=== PATIENT | male | born 1940 | race Caucasian/White ===

== ENCOUNTER 2019-11-03 09:03 | Emergency (ER) | payer MEDICARE, BC ==
[2019-11-03] MEDS ORDERED: Aspirin 81 MG Tab.Chew PO ONE (09:26)
[2019-11-03] MEDS ORDERED: Sodium Chloride 0.9% 10 ML Syringe FLUSH PRN ×2 (09:28→10:18)
--- NOTE | 2019-11-03 09:37 | EDM.PDOC ---
ED HPI GENERAL MEDICAL PROBLEM - General Chief Complaint: Chest Pain Stated Complaint: CHEST PAIN/SOB Time Seen by Provider: 11/03/19 09:27 - History of Present Illness INITIAL COMMENTS - FREE TEXT/NARRATIVE: 79-year-old male presents the emergency room with shortness of breath. Patient awoke around 2 AM with sharp bilateral lower chest pain. It hurts for him to take a deep breath but generally breathing in general is uncomfortable.. The patient is currently treated for myeloma. He cannot give any more history on this. He sees Dr. Gutierrez. Patient denies any fevers or chills he has not had any achiness no loss of taste or smell. Patient denies any leg pain however he has had lower leg swelling over the last month he attributes this to change in therapy for his myeloma. He denies chest pressure but has significant d iscomfort especially with breathing the harder he breathes the worst the pain is and seems to be both on the right and left side. Chest Pain Score (Numeric/FACES): 7 - Related Data Allergies Allergy/AdvReac Type Severity Reaction Status Date / Time ciprofloxacin [From Cipro] Allergy Severe Other Verified 11/03/19 09:16 Sulfa (Sulfonamide Allergy Severe Other Verified 11/03/19 09:16 Antibiotics) Home Meds: Home Meds Acyclovir 400 mg PO BID 11/03/19 [History] Aspirin 81 mg PO DAILY 11/03/19 [History] Bortezomib [Velcade] 1 dose IM ASDIRECTED 11/03/19 [History] Cholecalciferol (Vitamin D3) [Vitamin D3] 2,000 mg PO DAILY 11/03/19 [History] Enalapril [Vasotec] 5 mg PO DAILY 11/03/19 [History] Famotidine 20 mg PO BID 11/03/19 [History] Fluconazole [Diflucan] 400 mg PO DAILY 11/03/19 [History] Hydrocortisone [Hydrocortisone 2.5% Crm] 1 dose TOP BID 11/03/19 [History] Iron Polysaccharide Complex [Myferon 150] 1 cap PO DAILY 11/03/19 [History] Levothyroxine 125 mcg PO DAILY 11/03/19 [History] Loratadine 10 mg PO DAILY 11/03/19 [History] Minocycline [Minocin] 100 mg PO DAILY PRN 11/03/19 [History] Prochlorperazine [Compazine] 10 mg PO QID PRN 11/03/19 [History] Rosuvastatin [Crestor] 5 mg PO ASDIRECTED 11/03/19 [History] Tamsulosin [Flomax] 0.4 mg PO DAILY 11/03/19 [History] dexAMETHasone [Dexamethasone] 40 mg PO ASDIRECTED 11/03/19 [History] diphenhydrAMINE [Benadryl] 25 mg PO QID 11/03/19 [History] metroNIDAZOLE [Noritate] 1 dose TOP BID 11/03/19 [History] Past Medical History HEENT History: Reports: Cataract Cardiovascular History: Reports: High Cholesterol, Hypertension Genitourinary History: Reports: Prostate Disorder Endocrine/Metabolic History: Reports: Hypothyroidism - Past Surgical History HEENT Surgical History: Reports: Cataract Surgery GI Surgical History: Reports: Hernia, Inguinal, Hernia Repair/Other Musculoskeletal Surgical History: Reports: Knee Replacement ED ROS GENERAL - Review of Systems Review Of Systems: See Below Constitutional: Reports: No Symptoms HEENT: Reports: No Symptoms Respiratory: Reports: Shortness of Breath, Pleuritic Chest Pain Cardiovascular: Reports: Chest Pain, Edema Endocrine: Reports: No Symptoms GI/Abdominal: Reports: No Symptoms Musculoskeletal: Reports: No Symptoms Skin: Reports: No Symptoms Neurological: Reports: No Symptoms Psychiatric: Reports: No Symptoms ED EXAM, GENERAL - Physical Exam Exam: See Below Exam Limited By: No Limitations General Appearance: Anxious (He is mildly anxious and has some discomfort with breathing) Eye Exam: Bilateral Eye: Normal Inspection Head: Atraumatic, Normocephalic Neck: Normal Inspection, Supple, Non-Tender. No: Lymphadenopathy (R) Respiratory/Chest: Decreased Breath Sounds, Other (He is anxious in any sort of change of position causes his discomfort to get worse but he has baseline discomfort just with basic breathing). No: Crackles, Rales, Rhonchi, Wheezing Cardiovascular: Regular Rate, Rhythm, No Edema, No Murmur GI/Abdominal: Normal Bowel Sounds, Soft, Non-Tender Back Exam: Normal Inspection, Other (He has some lower rib discomfort). No: CVA Tenderness (L), CVA Tenderness (R) Extremities: Other (Bilateral 2+ pitting edema at this is been going on for about a month) Neurological: Alert, Oriented Psychiatric: Normal Affect, Anxious Skin Exam: Warm, Dry, Intact EKG INTERPRETATION EKG Date: 11/03/19 Rhythm: Other (Sinus tachycardia) Rate (Beats/Min): 114 Gilman: LAD-Left Gilman Deviation P-Wave: Present QRS: Normal ST-T: Other (Nonspecific nondiagnostic changes) QT: Normal Comparison: NA - No Prior EKG EKG Interpretation Comments: Single PVC noted. Abnormal EKG Course - Vital Signs Last Recorded V/S: Last Vital Signs Temp 36.7 C 11/03/19 09:10 Pulse 15 L 11/03/19 09:10 Resp 18 11/03/19 09:10 BP 134/73 11/03/19 09:10 Pulse Ox 94 L 11/03/19 09:10 - Orders/Labs/Meds Orders: Active Orders 24 hr Category Date Time Status EKG 12 Lead [EKG Documentation Completion] [RC] STAT Care 11/03/19 09:17 Active Oxygen Therapy [RC] ASDIRECTED Care 11/03/19 09:39 Active CBC W/O DIFF,HEMOGRAM [HEME] MOTH@0700 Lab 11/04/19 07:00 Ordered CBC W/O DIFF,HEMOGRAM [HEME] MOTH@0700 Lab 11/08/19 07:00 Ordered CBC W/O DIFF,HEMOGRAM [HEME] MOTH@0700 Lab 11/11/19 07:00 Ordered CBC W/O DIFF,HEMOGRAM [HEME] MOTH@0700 Lab 11/15/19 07:00 Ordered CBC W/O DIFF,HEMOGRAM [HEME] MOTH@0700 Lab 11/18/19 07:00 Ordered CBC W/O DIFF,HEMOGRAM [HEME] MOTH@0700 Lab 11/22/19 07:00 Ordered CORONAVIRUS COVID-19 RAPID [MOLEC] Stat Lab 11/03/19 10:38 Ordered PRO B-TYPE NATRIUR PEPT,BNPPRO [CHEM] Stat Lab 11/03/19 11:32 Ordered Heparin Sodium/D5W [Heparin 25,000 Units in D5W 500 ML] Med 11/03/19 11:30 Ordered 25,000 units in 500 ml IV TITRATE Sodium Chloride 0.9% [Normal Saline] 100 ml Med 11/03/19 10:30 Active IV ASDIRECTED Sodium Chloride 0.9% [Saline Flush] Med 11/03/19 09:28 Active 10 ml FLUSH ASDIRECTED PRN Sodium Chloride 0.9% [Saline Flush] Med 11/03/19 10:18 Active 10 ml FLUSH ONETIME PRN Saline Lock Insert [OM.PC] Routine Oth 11/03/19 09:28 Ordered Medication Orders Sodium Chloride (Normal Saline) 100 mls @ 75 mls/hr IV ASDIRECTED SARAH Last Admin: 11/03/19 10:28 Dose: 75 mls/hr Documented by: HOLLI Heparin Sodium/Dextrose (Heparin 25,000 Units In D5w 500 Ml) 25,000 units in 500 mls @ 26.345 mls/hr IV TITRATE SARAH; Protocol Sodium Chloride (Saline Flush) 10 ml FLUSH ASDIRECTED PRN PRN Reason: Keep Vein Open Last Admin: 11/03/19 09:31 Dose: 10 ml Documented by: ALEKSANDR Sodium Chloride (Saline Flush) 10 ml FLUSH ONETIME PRN PRN Reason: IV FLUSH Last Admin: 11/03/19 10:27 Dose: 10 ml Documented by: HOLLI Labs: Laboratory Tests 11/03/19 11/03/19 11/03/19 Range/Units 09:10 09:10 09:10 WBC 5.30 (4.23-9.07) K/mm3 RBC 4.14 L (4.63-6.08) M/mm3 Hgb 13.2 L (13.7-17.5) gm/dl Hct 39.7 L (40.1-51.0) % MCV 95.9 H (79.0-92.2) fl MCH 31.9 (25.7-32.2) pg MCHC 33.2 (32.2-35.5) g/dl RDW Std Deviation 63.6 H (35.1-43.9) fL Plt Count 67 L (163-337) K/mm3 MPV 11.0 (9.4-12.3) fl Neut % (Auto) 70.8 H (34.0-67.9) % Lymph % (Auto) 13.2 L (21.8-53.1) % Victoria % (Auto) 13.0 H (5.3-12.2) % Eos % (Auto) 2.6 (0.8-7.0) Baso % (Auto) 0.0 L (0.1-1.2) % Neut # (Auto) 3.75 (1.78-5.38) K/mm3 Lymph # (Auto) 0.70 L (1.32-3.57) K/mm3 Victoria # (Auto) 0.69 (0.30-0.82) K/mm3 Eos # (Auto) 0.14 (0.04-0.54) K/mm3 Baso # (Auto) 0.00 L (0.01-0.08) K/mm3 Manual Slide Review Abnormal smear PT (9.7-11.7) SECONDS INR APTT (22-31) SECONDS D-Dimer, Quantitative 10.50 H (0.19-0.50) mg/L Sodium 138 (136-145) mEq/L Potassium 3.6 (3.5-5.1) mEq/L Chloride 104 (98-107) mEq/L Carbon Dioxide 24 (21-32) mEq/L Anion Gap 13.6 (5-15) BUN 28 H (7-18) mg/dL Creatinine 1.7 H (0.7-1.3) mg/dL Est Cr Clr Drug Dosing 38.14 mL/min Estimated GFR (MDRD) 39 (>60) mL/min BUN/Creatinine Ratio 16.5 (14-18) Glucose 264 H (83-115) mg/dL Calcium 7.8 L (8.5-10.1) mg/dL Ferritin (26-388) ng/ml Total Bilirubin 1.4 H (0.2-1.0) mg/dL AST 27 (15-37) U/L ALT 45 (16-63) U/L Alkaline Phosphatase 88 (46-116) U/L Troponin I 0.017 (0.00-0.056) ng/mL C-Reactive Protein (<1.0) mg/dL Total Protein 5.2 L (6.4-8.2) g/dl Albumin 2.7 L (3.4-5.0) g/dl Globulin 2.5 gm/dL Albumin/Globulin Ratio 1.1 (1-2) 11/03/19 11/03/19 11/03/19 Range/Units 09:10 09:10 09:10 WBC (4.23-9.07) K/mm3 RBC (4.63-6.08) M/mm3 Hgb (13.7-17.5) gm/dl Hct (40.1-51.0) % MCV (79.0-92.2) fl MCH (25.7-32.2) pg MCHC (32.2-35.5) g/dl RDW Std Deviation (35.1-43.9) fL Plt Count (163-337) K/mm3 MPV (9.4-12.3) fl Neut % (Auto) (34.0-67.9) % Lymph % (Auto) (21.8-53.1) % Victoria % (Auto) (5.3-12.2) % Eos % (Auto) (0.8-7.0) Baso % (Auto) (0.1-1.2) % Neut # (Auto) (1.78-5.38) K/mm3 Lymph # (Auto) (1.32-3.57) K/mm3 Victoria # (Auto) (0.30-0.82) K/mm3 Eos # (Auto) (0.04-0.54) K/mm3 Baso # (Auto) (0.01-0.08) K/mm3 Manual Slide Review PT 11.9 H (9.7-11.7) SECONDS INR 1.11 APTT 25 (22-31) SECONDS D-Dimer, Quantitative (0.19-0.50) mg/L Sodium (136-145) mEq/L Potassium (3.5-5.1) mEq/L Chloride (98-107) mEq/L Carbon Dioxide (21-32) mEq/L Anion Gap (5-15) BUN (7-18) mg/dL Creatinine (0.7-1.3) mg/dL Est Cr Clr Drug Dosing mL/min Estimated GFR (MDRD) (>60) mL/min BUN/Creatinine Ratio (14-18) Glucose (83-115) mg/dL Calcium (8.5-10.1) mg/dL Ferritin 756 H (26-388) ng/ml Total Bilirubin (0.2-1.0) mg/dL AST (15-37) U/L ALT (16-63) U/L Alkaline Phosphatase (46-116) U/L Troponin I (0.00-0.056) ng/mL C-Reactive Protein 6.4 H* (<1.0) mg/dL Total Protein (6.4-8.2) g/dl Albumin (3.4-5.0) g/dl Globulin gm/dL Albumin/Globulin Ratio (1-2) Meds: Medications Generic Name Dose Route Start Last Admin Trade Name Ghanshyamq PRN Reason Stop Dose Admin Sodium Chloride 100 mls @ 75 mls/hr 11/03/19 10:30 11/03/19 10:28 Normal Saline IV 75 mls/hr ASDIRECTED SARAH Administration Heparin Sodium/Dextrose 25,000 units in 500 mls @ 26.345 mls/hr 11/03/19 11:30 Heparin 25,000 Units In D5w 500 Ml IV TITRATE SARAH Protocol 12 UNITS/KG/HR Sodium Chloride 10 ml 11/03/19 09:28 11/03/19 09:31 Saline Flush FLUSH 10 ml ASDIRECTED PRN Administration Keep Vein Open Sodium Chloride 10 ml 11/03/19 10:18 11/03/19 10:27 Saline Flush FLUSH 10 ml ONETIME PRN Administration IV FLUSH Discontinued Medications Generic Name Dose Route Start Last Admin Trade Name Ghanshyamq PRN Reason Stop Dose Admin Aspirin 324 mg 11/03/19 09:26 11/03/19 09:46 Aspirin PO 11/03/19 09:27 324 mg ONETIME ONE Administration Heparin Sodium (Porcine) 5,000 units 11/03/19 11:23 Heparin Sodium IVPUSH 11/03/19 11:24 ONETIME ONE Heparin Sodium (Porcine) 5,000 units 11/03/19 11:23 Heparin Sodium IVPUSH 11/03/19 11:24 .BOLUS ONE Hydromorphone HCl 0.25 mg 11/03/19 11:03 Dilaudid IVPUSH 11/03/19 11:04 ONETIME ONE Sodium Chloride 500 mls @ 500 mls/hr 11/03/19 09:38 11/03/19 09:46 Normal Saline IV 11/03/19 10:37 500 mls/hr .BOLUS ONE Administration Iopamidol 50 ml 11/03/19 10:18 11/03/19 10:27 Isovue-370 (76%) IVPUSH 11/03/19 10:19 50 ml ONETIME ONE Administration Iopamidol 100 ml 11/03/19 10:18 11/03/19 10:27 Isovue-370 (76%) IVPUSH 11/03/19 10:19 100 ml ONETIME ONE Administration - Re-Assessments/Exams Free Text/Narrative Re-Assessment/Exam: 11/03/19 11:32 Case was discussed with [place] in [place] they do believe they will have a bed. They were kind enough to contact Dr. Jeffery and shortly before 11:00 this morning I did discuss patient with Dr. Jeffery who recommended that the patient be admitted and transferred to [place] as we have no bed availability in [place]. At 1120 I discussed situation with Dr. Greer, the hospitalist who is kind enough to accept the patient. Because of the pandemic and minimal bed availability we will wait on the transfer until they call us. With discussion with Dr. Greer the patient will be started on heparin. Prior to calling a CTA was performed that showed bilateral lower lobe segmental and subsegmental emboli 11/03/19 11:35 Departure - Departure Time of Disposition: 11:36 Disposition: DC/Tfer to [facility] 02 Clinical Impression: Bilateral pulmonary embolism, Myeloma - Discharge Information Referrals: Dylan King MD [Primary Care Provider] - Forms: ED Department Discharge Sepsis Event Note (ED) - Evaluation Sepsis Screening Result: No Definite Risk - Focused Exam Vital Signs: Vital Signs Temp Pulse Resp BP Pulse Ox 11/03/19 09:10 36.7 C 15 L 18 134/73 94 L - My Orders Last 24 Hours: My Active Orders 11/03/19 09:17 EKG 12 Lead [EKG Documentation Completion] [RC] STAT 11/03/19 09:28 Sodium Chloride 0.9% [Saline Flush] 10 ml FLUSH ASDIRECTED PRN Saline Lock Insert [OM.PC] Routine 11/03/19 09:39 Oxygen Therapy [RC] ASDIRECTED 11/03/19 10:18 Sodium Chloride 0.9% [Saline Flush] 10 ml FLUSH ONETIME PRN 11/03/19 10:30 Sodium Chloride 0.9% [Normal Saline] 100 ml IV ASDIRECTED 11/03/19 10:38 CORONAVIRUS COVID-19 RAPID [MOLEC] Stat 11/03/19 11:30 Heparin Sodium/D5W [Heparin 25,000 Units in D5W 500 ML] 25,000 units in 500 ml IV TITRATE 11/03/19 11:32 PRO B-TYPE NATRIUR PEPT,BNPPRO [CHEM] Stat 11/04/19 07:00 CBC W/O DIFF,HEMOGRAM [HEME] MOTH@69911/08/19 07:00 CBC W/O DIFF,HEMOGRAM [HEME] MOTH@69911/11/19 07:00 CBC W/O DIFF,HEMOGRAM [HEME] MOTH@69911/15/19 07:00 CBC W/O DIFF,HEMOGRAM [HEME] MOTH@69911/18/19 07:00 CBC W/O DIFF,HEMOGRAM [HEME] MOTH@69911/22/19 07:00 CBC W/O DIFF,HEMOGRAM [HEME] MOTH@699 - Assessment/Plan Last 24 Hours: My Active Orders 11/03/19 09:17 EKG 12 Lead [EKG Documentation Completion] [RC] STAT 11/03/19 09:28 Sodium Chloride 0.9% [Saline Flush] 10 ml FLUSH ASDIRECTED PRN Saline Lock Insert [OM.PC] Routine 11/03/19 09:39 Oxygen Therapy [RC] ASDIRECTED 11/03/19 10:18 Sodium Chloride 0.9% [Saline Flush] 10 ml FLUSH ONETIME PRN 11/03/19 10:30 Sodium Chloride 0.9% [Normal Saline] 100 ml IV ASDIRECTED 11/03/19 10:38 CORONAVIRUS COVID-19 RAPID [MOLEC] Stat 11/03/19 11:30 Heparin Sodium/D5W [Heparin 25,000 Units in D5W 500 ML] 25,000 units in 500 ml IV TITRATE 11/03/19 11:32 PRO B-TYPE NATRIUR PEPT,BNPPRO [CHEM] Stat 11/04/19 07:00 CBC W/O DIFF,HEMOGRAM [HEME] MOTH@69911/08/19 07:00 CBC W/O DIFF,HEMOGRAM [HEME] MOTH@69911/11/19 07:00 CBC W/O DIFF,HEMOGRAM [HEME] MOTH@69911/15/19 07:00 CBC W/O DIFF,HEMOGRAM [HEME] MOTH@69911/18/19 07:00 CBC W/O DIFF,HEMOGRAM [HEME] MOTH@69911/22/19 07:00 CBC W/O DIFF,HEMOGRAM [HEME] MOTH@0755
[2019-11-03] MEDS ORDERED: Sodium Chloride 0.9% 500 ML IV ONE (09:38)
[2019-11-03] MEDS ORDERED: Iopamidol 755 Mg/ML 100 ML Bottle IVPUSH ONE (10:18)
[2019-11-03] MEDS ORDERED: Iopamidol 755 MG/ML 50 ML Bottle IVPUSH ONE (10:18)
[2019-11-03] MEDS ORDERED: Sodium Chloride 0.9% 100 ML IV SCH (10:30)
--- NOTE | 2019-11-03 10:34 | CR ---
Chest: Portable view of the chest was obtained. Comparison: No prior chest imaging is available. Slight density is noted within the right lung base most likely due to atelectasis. Lungs otherwise are clear with no acute parenchymal change. Bony structures show nothing acute. Impression: 1. Probable atelectasis within the right lung base. 2. Nothing acute is otherwise seen on portable chest x-ray. Diagnostic code #2 This report was dictated in MDT
--- NOTE | 2019-11-03 10:34 | CT ---
CT chest Technique: Multiple axial sections through the chest were obtained. Intravenous contrast was utilized. Study performed as a pulmonary angiogram protocol. Findings: Pulmonary arteries are not optimally opacified. Filling defects are felt to be present within the segmental and subsegmental branches of both lower pulmonary arteries compatible with pulmonary embolism. Aorta shows no aneurysm. Atherosclerotic change is seen within the thoracic aorta. Mediastinum and hilar regions show no adenopathy. Diffuse coronary artery calcification is present. No pericardial thickening is seen. Calcification is present within the upper right kidney measuring about 2.9 cm. Low-density lesion which appears to represent a cyst is seen off the pancreas in the approximate neck. This finding measures 3.3 cm. 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 This may also represent less likely pseudocyst. Hazy areas of groundglass appearance is noted within both lower lungs. Findings most likely represent change from the pulmonary emboli. Areas of infection are also within the differential. Bone window settings were reviewed. Mild scattered degenerative change is noted within the spine. Impression: 1. Multiple lower lobe pulmonary emboli. 2. Groundglass appearance within both lower lung most likely representing change from the pulmonary emboli. Findings are less likely due to infection. 3. Cystic lesion within the pancreas measuring 3.3 cm. Given the patient's age this is most likely due to benign pancreatic tumor or pseudocyst. Follow-up contrast-enhanced CT abdomen study could be considered in 6 months to confirm stability. Follow-up would occur in April,. 4. 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 5. Other findings as noted above. Diagnostic code #5 This report was dictated in MDT
[2019-11-03] MEDS ORDERED: HYDROmorphone 0.5 MG/0.5 ML Syringe IVPUSH ONE (11:03)
[2019-11-03] MEDS ORDERED: Heparin Sodium 5,000 Units/ML Vial IVPUSH ONE ×2 (11:23)
[2019-11-03] MEDS ORDERED: Heparin Sodium/D5W 25,000 UNITS/500 ML BAG IV SCH (11:30)
== END 2019-11-03 14:50 ==
LOC: JD.ED 09:03
DX: I26.99 Other pulmonary embolism without acute cor pulmonale (principal); C90.00 Multiple myeloma not having achieved remission; I10 Essential (primary) hypertension; E03.9 Hypothyroidism, unspecified; N42.9 Disorder of prostate, unspecified; Z88.2 Allergy status to sulfonamides; Z88.1 Allergy status to other antibiotic agents; Z79.82 Long term (current) use of aspirin; Z79.899 Other long term (current) drug therapy; Z20.828 Contact with and (suspected) exposure to other viral communicable diseases
CPT/HCPCS: 36415; 71045; 71275; 80053; 82728; 83880; 84484; 85025; 85379; 85610; 85730; 86140; 93005; 94762; 96361; 96365; 96366; 99285; A9270; J1644; J7030; J7050; Q9967; U0002; 93010

== ENCOUNTER 2020-05-29 10:42 | Emergency (ER) | payer MEDICARE, BC ==
--- NOTE | 2020-05-29 12:09 | EDM.PDOC ---
ED HPI GENERAL MEDICAL PROBLEM - General Chief Complaint: Lower Extremity Injury/Pain Stated Complaint: POSSIBLE BLOOD CLOT SENT BY RADIOLOGY Time Seen by Provider: 05/29/20 11:08 Source of Information: Reports: Patient, RN Notes Reviewed History Limitations: Reports: No Limitations - History of Present Illness INITIAL COMMENTS - FREE TEXT/NARRATIVE: Patient is a 79-year-old male who presents to the ER for the evaluation of the blood clot in his right leg. He was seen by his primary care provider, Dr. King earlier this morning, had ultrasound to his right leg due to re dness/swelling, that has been ongoing since a fall at his house last week Friday roughly 8 days ago. 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 He was told to come to the ER, to be started on a heparin drip, and to be transferred to [place]. Dr. King apparently talked to Dr. Martínez, which is a car audio installer/oncologist at [facility] in [place], and he has already had tentative acceptance. Patient states that he had both COVID-19 vaccines done, in April. He does have a history of multiple myeloma as well. Patient is not having any pain to the leg, he denies any fevers or chills, cough/shortness of breath, nausea/vomiting/diarrhea. He states that the swelling in his leg does go down at times, and then worsens at times. - Related Data Allergies Allergy/AdvReac Type Severity Reaction Status Date / Time ciprofloxacin [From Cipro] Allergy Unknown Other Verified 05/29/20 11:30 Sulfa (Sulfonamide Allergy Unknown Other Verified 05/29/20 11:30 Antibiotics) Home Meds: Home Meds Acyclovir 400 mg PO BID 11/03/19 [History] Cholecalciferol (Vitamin D3) [Vitamin D3] 2,000 mg PO DAILY 11/03/19 [History] Fluconazole [Diflucan] 400 mg PO DAILY 11/03/19 [History] Levothyroxine 125 mcg PO DAILY 11/03/19 [History] Rosuvastatin [Crestor] 5 mg PO DAILY 11/03/19 [History] Tamsulosin [Flomax] 0.4 mg PO DAILY 11/03/19 [History] dexAMETHasone [Dexamethasone] 40 mg PO ASDIRECTED PRN 11/03/19 [History] metroNIDAZOLE [Noritate] 1 dose TOP BID PRN 11/03/19 [History] Past Medical History HEENT History: Reports: Cataract, Impaired Vision Other HEENT History: wears eyeglasses. Cardiovascular History: Reports: High Cholesterol, Hypertension Respiratory History: Reports: Bronchitis, Recurrent, Sleep Apnea, Other (See Below) Other Respiratory History: wears C-PAP. Genitourinary History: Reports: Prostate Disorder Endocrine/Metabolic History: Reports: Hypothyroidism, Obesity/BMI 30+ Hematologic History: Reports: Blood Transfusion(s) Oncologic (Cancer) History: Reports: Other (See Below) Other Oncologic History: multiple myleoma. Dermatologic History: Reports: Other (See Below) Other Dermatologic History: roseia, vitalia. - Infectious Disease History Infectious Disease History: Reports: Chicken Pox - Past Surgical History HEENT Surgical History: Reports: Cataract Surgery GI Surgical History: Reports: Cholecystectomy, Hernia, Inguinal, Hernia Repair/Other Musculoskeletal Surgical History: Reports: Knee Replacement - History Comment History Comment: Has had both COVID-19 vaccinations ([employer]) April 2020 Social & Family History - Tobacco Use Tobacco Use Status *Q: Never Tobacco User Second Hand Smoke Exposure: No - Caffeine Use Caffeine Use: Reports: Coffee, Soda - Recreational Drug Use Recreational Drug Use: No Review of Systems - Review of Systems Review Of Systems: Comprehensive ROS is negative, except as noted in HPI. ED EXAM, GENERAL - Physical Exam Exam: See Below Exam Limited By: No Limitations General Appearance: Alert, WD/WN, No Apparent Distress Eye Exam: Bilateral Eye: EOMI, Normal Inspection, PERRL Respiratory/Chest: No Respiratory Distress, Lungs Clear, Normal Breath Sounds, No Accessory Muscle Use, Chest Non-Tender Cardiovascular: Normal Peripheral Pulses, Regular Rate, Rhythm, No Edema Peripheral Pulses: 2+: Dorsalis Pedis (L), Dorsalis Pedis (R) Extremities: Normal Range of Motion, Normal Capillary Refill, Redness (and mild swelling to R leg as compared to left) Neurological: Alert, Oriented, Normal Cognition, No Motor/Sensory Deficits Psychiatric: Normal Affect, Normal Mood Skin Exam: Warm, Dry, Intact, Normal Color, No Rash Course - Vital Signs Last Recorded V/S: Last Vital Signs Temp 97.6 F 05/29/20 11:25 Pulse 77 05/29/20 11:25 Resp 18 05/29/20 11:25 BP 139/82 05/29/20 11:25 Pulse Ox 93 L 05/29/20 11:25 - Orders/Labs/Meds Orders: Active Orders 24 hr Category Date Time Status Peripheral IV Care [RC] . DIRECTED Care 05/29/20 12:10 Active COVID-19/FLU A+B [MOLEC] Stat Lab 05/29/20 13:10 Received Heparin Sodium/D5W [Heparin 25,000 Units in D5W 500 ML] Med 05/29/20 13:15 Active 25,000 units in 500 ml IV TITRATE Sodium Chloride 0.9% [Saline Flush] Med 05/29/20 12:10 Active 10 ml FLUSH ASDIRECTED PRN Peripheral IV Insertion Adult [OM.PC] Routine Oth 05/29/20 12:09 Ordered Medication Orders Heparin Sodium/Dextrose (Heparin 25,000 Units In D5w 500 Ml) 25,000 units in 500 mls @ 28.021 mls/hr IV TITRATE SARAH; Protocol Sodium Chloride (Sodium Chloride 0.9% 10 Ml Syringe) 10 ml FLUSH ASDIRECTED PRN PRN Reason: Keep Vein Open Last Admin: 05/29/20 13:13 Dose: 10 ml Documented by: ANGLE Labs: Laboratory Tests 05/29/20 05/29/20 05/29/20 Range/Units 11:55 11:55 11:55 WBC 5.67 (4.23-9.07) K/mm3 RBC 4.55 L (4.63-6.08) M/mm3 Hgb 13.7 (13.7-17.5) gm/dl Hct 42.3 (40.1-51.0) % MCV 93.0 H (79.0-92.2) fl MCH 30.1 (25.7-32.2) pg MCHC 32.4 (32.2-35.5) g/dl RDW Std Deviation 56.3 H (35.1-43.9) fL Plt Count 175 D (163-337) K/mm3 MPV 8.9 L (9.4-12.3) fl Neut % (Auto) 63.6 (34.0-67.9) % Lymph % (Auto) 18.7 L (21.8-53.1) % [place] % (Auto) 15.2 H (5.3-12.2) % Eos % (Auto) 1.9 (0.8-7.0) Baso % (Auto) 0.4 (0.1-1.2) % Neut # (Auto) 3.61 (1.78-5.38) K/mm3 Lymph # (Auto) 1.06 L (1.32-3.57) K/mm3 [place] # (Auto) 0.86 H (0.30-0.82) K/mm3 Eos # (Auto) 0.11 (0.04-0.54) K/mm3 Baso # (Auto) 0.02 (0.01-0.08) K/mm3 Manual Slide Review Abnormal smear PT 11.4 (9.7-12.0) SECONDS INR 1.07 APTT 26.8 (21.7-31.4) SECONDS Sodium 147 H (136-145) mEq/L Potassium 3.6 (3.5-5.1) mEq/L Chloride 107 (98-107) mEq/L Carbon Dioxide 29 (21-32) mEq/L Anion Gap 14.6 (5-15) BUN 26 H (7-18) mg/dL Creatinine 1.6 H (0.7-1.3) mg/dL Est Cr Clr Drug Dosing 40.53 mL/min Estimated GFR (MDRD) 42 (>60) mL/min BUN/Creatinine Ratio 16.3 (14-18) Glucose 105 (83-115) mg/dL Calcium 8.5 (8.5-10.1) mg/dL Total Bilirubin 1.1 H (0.2-1.0) mg/dL AST 20 (15-37) U/L ALT 22 (16-63) U/L Alkaline Phosphatase 86 (46-116) U/L Total Protein 5.9 L (6.4-8.2) g/dl Albumin 3.2 L (3.4-5.0) g/dl Globulin 2.7 gm/dL Albumin/Globulin Ratio 1.2 (1-2) Meds: Medications Generic Name Dose Route Start Last Admin Trade Name Freq PRN Reason Stop Dose Admin Heparin Sodium/Dextrose 25,000 units in 500 mls @ 28.021 mls/hr 05/29/20 13:15 Heparin 25,000 Units In D5w 500 Ml IV TITRATE SARAH Protocol 12 UNITS/KG/HR Sodium Chloride 10 ml 05/29/20 12:10 05/29/20 13:13 Sodium Chloride 0.9% 10 Ml Syringe FLUSH 10 ml ASDIRECTED PRN Administration Keep Vein Open Discontinued Medications Generic Name Dose Route Start Last Admin Trade Name Freq PRN Reason Stop Dose Admin Heparin Sodium (Porcine) 4,000 units 05/29/20 13:14 Heparin Sodium 5,000 Units/Ml Vial IVPUSH 05/29/20 13:15 ONETIME ONE - Re-Assessments/Exams Free Text/Narrative Re-Assessment/Exam: 05/29/20 12:08 Patient presents to the ER for his blood clot in his right leg, he was under direction of his primary care provider to be sent here for a heparin drip, and be transferred to [place]. I would like to talk with Dr. Martínez, to make sure he does not want any baseline labs, or a Covid screen before he is sent to [place]. 05/29/20 13:08 I have reviewed the labs that were taken, CBC demonstrates no abnormalities of his hemoglobin, coagulation studies are within normal limits or unremarkable for today's purposes. Metabolic panel is also fairly unremarkable, COVID-19 screen is still pending. 05/29/20 13:17 I was able to talk with Zev in [place], and Dr. Packer ultimately accepts the patient for transfer. However they state that they are awaiting some discharges, so his transfer will be slightly delayed. Again the patient is nonemergent; this is okay by me, we will send him by ambulance after they tell us that they have a bed available. Departure - Departure Time of Disposition: 13:18 Disposition: DC/Tfer to Acute Hospital 02 Condition: Good Clinical Impression: DVT, lower extremity Qualifiers: Affected thrombotic vein of extremity: other lower extremity vein Chronicity: acute Laterality: right Qualified Code(s): I82.491 - Acute embolism and t hrombosis of other specified deep vein of right lower extremity - Discharge Information *PRESCRIPTION DRUG MONITORING PROGRAM REVIEWED*: No *COPY OF PRESCRIPTION DRUG MONITORING REPORT IN PATIENT JING: No Referrals: Dylan King MD [Primary Care Provider] - Forms: ED Department Discharge Sepsis Event Note (ED) - Evaluation Sepsis Screening Result: No Definite Risk - Focused Exam Vital Signs: Vital Signs Temp Pulse Resp BP Pulse Ox 05/29/20 11:25 97.6 F 77 18 139/82 93 L - My Orders Last 24 Hours: My Active Orders 05/29/20 12:09 Peripheral IV Insertion Adult [OM.PC] Routine 05/29/20 12:10 Peripheral IV Care [RC] . DIRECTED Sodium Chloride 0.9% [Saline Flush] 10 ml FLUSH ASDIRECTED PRN 05/29/20 13:10 COVID-19/FLU A+B [MOLEC] Stat 05/29/20 13:15 Heparin Sodium/D5W [Heparin 25,000 Units in D5W 500 ML] 25,000 units in 500 ml IV TITRATE - Assessment/Plan Last 24 Hours: My Active Orders 05/29/20 12:09 Peripheral IV Insertion Adult [OM.PC] Routine 05/29/20 12:10 Peripheral IV Care [RC] . DIRECTED Sodium Chloride 0.9% [Saline Flush] 10 ml FLUSH ASDIRECTED PRN 05/29/20 13:10 COVID-19/FLU A+B [MOLEC] Stat 05/29/20 13:15 Heparin Sodium/D5W [Heparin 25,000 Units in D5W 500 ML] 25,000 units in 500 ml IV TITRATE
[2020-05-29] MEDS ORDERED: Sodium Chloride 0.9% 10 ML Syringe FLUSH PRN (12:10)
[2020-05-29] MEDS ORDERED: Heparin Sodium 5,000 Units/ML Vial IVPUSH ONE (13:14)
[2020-05-29] MEDS ORDERED: Heparin Sodium/D5W 25,000 UNITS/500 ML BAG IV SCH (13:15)
[2020-05-29 13:53] LABS: CORONAVIRUS COVID-19 NAA NEGATIVE (NEGATIVE)
== END 2020-05-29 14:58 ==
LOC: JD.ED 10:42
DX: I82.4Z1 Acute embolism and thrombosis of unspecified deep veins of right distal lower extremity (principal); Z86.718 Personal history of other venous thrombosis and embolism; R06.02 Shortness of breath
CPT/HCPCS: 0240U; 36415; 71046; 76705; 80053; 85025; 85610; 85730; 93970; J1644; 96365; 99284; 99284-25

== ENCOUNTER 2020-10-09 18:13 | Inpatient (IN) | payer MEDICARE, BC ==
[2020-10-09] MEDS ORDERED: Sodium Chloride 0.9% 10 ML Syringe FLUSH PRN (18:53)
[2020-10-09] MEDS ORDERED: Acetaminophen 325 MG Tab PO ONE (18:54)
[2020-10-09] MEDS ORDERED: Dexamethasone 10 MG/ML SDV IVPUSH ONE (18:54)
--- NOTE | 2020-10-09 18:59 | EDM.PDOC ---
ED HPI GENERAL MEDICAL PROBLEM - General Chief Complaint: Respiratory Problem Stated Complaint: covid+ sob Time Seen by Provider: 10/09/20 18:33 Source of Information: Reports: Patient, RN Notes Reviewed History Limitations: Reports: No Limitations - History of Present Illness INITIAL COMMENTS - FREE TEXT/NARRATIVE: Patient is a 79-year-old male who presents to the ER for the evaluation of his COVID-19 disease. Patient states that he began to get sick on Friday, with Covid symptoms, and he was tested at the walk-in clinic today, and was found to be positive. He was given IV Regeneron therapy, and was doing okay however throughout the course of the day, his oxygen levels have been in the low to mid 80s at home, so he turns to the ER for evaluation. At the time of triage his O2 sats were 87-88% on room air, he is placed on 2 L, satting 93 to 94%. States that he is still having a cough, that is getting up some contreras sputum. He has some upper abdomen discomfort, which he attributes to the increased coughing. He did have a fever as well, 101.3 F, but states he has not been given any sort of Tylenol for today's purposes or for some time at least. Primary care providers Dr. King. Patient states he feels generally weak as well. He is denying any nausea/vomiting/diarrhea, or any GI issues. He did receive the [employer] Covid vaccine. - Related Data Allergies Allergy/AdvReac Type Severity Reaction Status Date / Time ciprofloxacin [From Cipro] Allergy Unknown Other Verified 10/09/20 18:34 Sulfa (Sulfonamide Allergy Unknown Other Verified 10/09/20 18:34 Antibiotics) Home Meds: Home Meds Acyclovir 400 mg PO BID 11/03/19 [History] Cholecalciferol (Vitamin D3) [Vitamin D3] 2,000 mg PO DAILY 11/03/19 [History] Fluconazole [Diflucan] 400 mg PO DAILY 11/03/19 [History] Levothyroxine 125 mcg PO DAILY 11/03/19 [History] Rosuvastatin [Crestor] 5 mg PO DAILY 11/03/19 [History] Tamsulosin [Flomax] 0.4 mg PO DAILY 11/03/19 [History] dexAMETHasone [Dexamethasone] 40 mg PO ASDIRECTED PRN 11/03/19 [History] metroNIDAZOLE [Noritate] 1 dose TOP BID PRN 11/03/19 [History] Past Medical History HEENT History: Reports: Cataract, Impaired Vision Other HEENT History: wears eyeglasses. Cardiovascular History: Reports: High Cholesterol, Hypertension Respiratory History: Reports: Bronchitis, Recurrent, Sleep Apnea, Other (See Below) Other Respiratory History: wears C-PAP. Genitourinary History: Reports: Prostate Disorder Endocrine/Metabolic History: Reports: Hypothyroidism, Obesity/BMI 30+ Hematologic History: Reports: Blood Transfusion(s) Oncologic (Cancer) History: Reports: Other (See Below) Other Oncologic History: multiple myleoma. Dermatologic History: Reports: Other (See Below) Other Dermatologic History: rosacea, vitiligo. - Infectious Disease History Infectious Disease History: Reports: Chicken Pox, Novel Coronavirus - Past Surgical History HEENT Surgical History: Reports: Cataract Surgery GI Surgical History: Reports: Cholecystectomy, Hernia, Inguinal, Hernia Repair/Other Musculoskeletal Surgical History: Reports: Knee Replacement - History Comment History Comment: Has had both COVID-19 vaccinations ([employer]) April 2020 Social & Family History - Tobacco Use Tobacco Use Status *Q: Never Tobacco User Second Hand Smoke Exposure: No - Caffeine Use Caffeine Use: Reports: Coffee, Soda - Recreational Drug Use Recreational Drug Use: No ED ROS GENERAL - Review of Systems Review Of Systems: Comprehensive ROS is negative, except as noted in HPI. ED EXAM, GENERAL - Physical Exam Exam: See Below Exam Limited By: No Limitations General Appearance: Alert, WD/WN, Mild Distress (pt has mild breathlessness) Throat/Mouth: Normal Inspection, Normal Lips, Normal Teeth, Normal Gums, Normal Oropharynx, Normal Voice, No Airway Compromise Head: Atraumatic, Normocephalic Neck: Normal Inspection Respiratory/Chest: No Respiratory Distress, Lungs Clear, No Accessory Muscle Use, Chest Non-Tender, Rhonchi (bilateral coarse lung sounds) Cardiovascular: Normal Peripheral Pulses, Regular Rate, Rhythm Peripheral Pulses: 2+: Radial (L), Radial (R) Extremities: Normal Inspection, Normal Capillary Refill Neurological: Alert, Oriented, Normal Cognition, No Motor/Sensory Deficits Psychiatric: Normal Affect, Normal Mood Skin Exam: Warm, Intact, Normal Color, No Rash, Diaphoretic (slight generalized clamminess) Course - Vital Signs Last Recorded V/S: Last Vital Signs Temp 101.3 F H 10/09/20 18:31 Pulse 98 10/09/20 18:31 Resp 20 10/09/20 18:31 BP 133/69 10/09/20 18:31 Pulse Ox 87 L 10/09/20 18:31 - Orders/Labs/Meds Orders: Active Orders 24 hr Category Date Time Status Admission Status [Patient Status] [ADT] Routine ADT 10/09/20 20:26 Active EKG Documentation Completion [RC] STAT Care 10/09/20 18:52 Active Oxygen Therapy, ED [RC] ASDIRECTED Care 10/09/20 18:54 Active Peripheral IV Care [RC] . DIRECTED Care 10/09/20 18:53 Active Sodium Chloride 0.9% [Saline Flush] Med 10/09/20 18:53 Active 10 ml FLUSH ASDIRECTED PRN Peripheral IV Insertion Adult [OM.PC] Routine Oth 10/09/20 18:53 Ordered Medication Orders Sodium Chloride (Sodium Chloride 0.9% 10 Ml Syringe) 10 ml FLUSH ASDIRECTED PRN PRN Reason: Keep Vein Open Labs: Laboratory Tests 10/09/20 10/09/20 10/09/20 Range/Units 19:15 19:15 19:15 WBC 8.08 (4.23-9.07) K/mm3 RBC 5.30 (4.63-6.08) M/mm3 Hgb 16.3 D (13.7-17.5) gm/dl Hct 47.8 (40.1-51.0) % MCV 90.2 (79.0-92.2) fl MCH 30.8 (25.7-32.2) pg MCHC 34.1 (32.2-35.5) g/dl RDW Std Deviation 55.3 H (35.1-43.9) fL Plt Count 91 L D (163-337) K/mm3 MPV 10.6 (9.4-12.3) fl Neut % (Auto) 82.9 H (34.0-67.9) % Lymph % (Auto) 10.5 L (21.8-53.1) % [place] % (Auto) 6.3 (5.3-12.2) % Eos % (Auto) 0.2 L (0.8-7.0) Baso % (Auto) 0.0 L (0.1-1.2) % Neut # (Auto) 6.69 H (1.78-5.38) K/mm3 Lymph # (Auto) 0.85 L (1.32-3.57) K/mm3 [place] # (Auto) 0.51 (0.30-0.82) K/mm3 Eos # (Auto) 0.02 L (0.04-0.54) K/mm3 Baso # (Auto) 0.00 L (0.01-0.08) K/mm3 Manual Slide Review Abnormal smear PT 12.1 H (9.7-12.0) SECONDS INR 1.13 APTT 29.6 (21.7-31.4) SECONDS D-Dimer, Quantitative 0.25 (0.19-0.50) mg/L Sodium (136-145) mEq/L Potassium (3.5-5.1) mEq/L Chloride (98-107) mEq/L Carbon Dioxide (21-32) mEq/L Anion Gap (5-15) BUN (7-18) mg/dL Creatinine (0.7-1.3) mg/dL Est Cr Clr Drug Dosing mL/min Estimated GFR (MDRD) (>60) mL/min BUN/Creatinine Ratio (14-18) Glucose (70-99) mg/dL Lactic Acid (0.4-2.0) mmol/L Calcium (8.5-10.1) mg/dL Magnesium (1.8-2.4) mg/dL Total Bilirubin (0.2-1.0) mg/dL AST (15-37) U/L ALT (16-63) U/L Alkaline Phosphatase (46-116) U/L Troponin I (0.00-0.056) ng/mL C-Reactive Protein 17.5 H* (<1.0) mg/dL NT-Pro-B Natriuret Pep (0-450) pg/mL Total Protein (6.4-8.2) g/dl Albumin (3.4-5.0) g/dl Globulin gm/dL Albumin/Globulin Ratio (1-2) 10/09/20 10/09/20 10/09/20 Range/Units 19:15 19:15 19:15 WBC (4.23-9.07) K/mm3 RBC (4.63-6.08) M/mm3 Hgb (13.7-17.5) gm/dl Hct (40.1-51.0) % MCV (79.0-92.2) fl MCH (25.7-32.2) pg MCHC (32.2-35.5) g/dl RDW Std Deviation (35.1-43.9) fL Plt Count (163-337) K/mm3 MPV (9.4-12.3) fl Neut % (Auto) (34.0-67.9) % Lymph % (Auto) (21.8-53.1) % [place] % (Auto) (5.3-12.2) % Eos % (Auto) (0.8-7.0) Baso % (Auto) (0.1-1.2) % Neut # (Auto) (1.78-5.38) K/mm3 Lymph # (Auto) (1.32-3.57) K/mm3 [place] # (Auto) (0.30-0.82) K/mm3 Eos # (Auto) (0.04-0.54) K/mm3 Baso # (Auto) (0.01-0.08) K/mm3 Manual Slide Review PT (9.7-12.0) SECONDS INR APTT (21.7-31.4) SECONDS D-Dimer, Quantitative (0.19-0.50) mg/L Sodium 144 (136-145) mEq/L Potassium 3.5 (3.5-5.1) mEq/L Chloride 102 (98-107) mEq/L Carbon Dioxide 29 (21-32) mEq/L Anion Gap 16.5 H (5-15) BUN 30 H (7-18) mg/dL Creatinine 1.8 H (0.7-1.3) mg/dL Est Cr Clr Drug Dosing 36.02 mL/min Estimated GFR (MDRD) 37 (>60) mL/min BUN/Creatinine Ratio 16.7 (14-18) Glucose 136 H (70-99) mg/dL Lactic Acid 0.9 (0.4-2.0) mmol/L Calcium 8.2 L (8.5-10.1) mg/dL Magnesium 2.0 (1.8-2.4) mg/dL Total Bilirubin 1.7 H (0.2-1.0) mg/dL AST 23 (15-37) U/L ALT 25 (16-63) U/L Alkaline Phosphatase 76 (46-116) U/L Troponin I < 0.017 (0.00-0.056) ng/mL C-Reactive Protein (<1.0) mg/dL NT-Pro-B Natriuret Pep 335 (0-450) pg/mL Total Protein 6.3 L (6.4-8.2) g/dl Albumin 3.4 (3.4-5.0) g/dl Globulin 2.9 gm/dL Albumin/Globulin Ratio 1.2 (1-2) Meds: Medications Generic Name Dose Route Start Last Admin Trade Name Freq PRN Reason Stop Dose Admin Sodium Chloride 10 ml 10/09/20 18:53 Sodium Chloride 0.9% 10 Ml Syringe FLUSH ASDIRECTED PRN Keep Vein Open Discontinued Medications Generic Name Dose Route Start Last Admin Trade Name Freq PRN Reason Stop Dose Admin Acetaminophen 975 mg 10/09/20 18:54 Acetaminophen 325 Mg Tab PO 10/09/20 18:55 NOW ONE Dexamethasone 6 mg 10/09/20 18:54 Dexamethasone 10 Mg/Ml Sdv IVPUSH 10/09/20 18:55 ONETIME ONE - Re-Assessments/Exams Free Text/Narrative Re-Assessment/Exam: 10/09/20 19:00 Patient presents to the ER for the evaluation of his COVID-19 illness. Since he is requiring oxygen at this time, he will necessitate hospitalization. I do believe we have a bed available at our facility at this time yet. I will speak with her hospitalist to try to get this gentleman admitted here rather than having to transfer him out. We will get basic labs, chest x-ray for further evaluation however. Patient has been placed on 2 L oxygen, and he is satting 94 to 95% at this time. 6mg IV Dexamethasone and 975mg PO Tylenol has been ordered. 10/09/20 19:50 The patient's chest x-ray has been reviewed by myself and Dr. Peralta, there is a pulmonary congestion type pattern apparent, but no obvious sign of any Covid pneumonia at this time. Some of the labs have started to result, his CBC is unremarkable, D-dimer is 0.25, and other coagulation studies are unremarkable. Lactic acid has come back at 0.9. Departure - Departure Time of Disposition: 19:52 Disposition: Admitted As Inpatient 66 Condition: Good Clinical Impression: Hypoxia, COVID-19 - Discharge Information Referrals: Dylan King MD [Primary Care Provider] - Forms: ED Department Discharge Sepsis Event Note (ED) - Evaluation Sepsis Screening Result: No Definite Risk - Focused Exam Vital Signs: Vital Signs Temp Pulse Resp BP Pulse Ox 10/09/20 18:31 101.3 F H 98 20 133/69 87 L - My Orders Last 24 Hours: My Active Orders 10/09/20 18:52 EKG Documentation Completion [RC] STAT 10/09/20 18:53 Peripheral IV Care [RC] . DIRECTED Sodium Chloride 0.9% [Saline Flush] 10 ml FLUSH ASDIRECTED PRN Peripheral IV Insertion Adult [OM.PC] Routine 10/09/20 18:54 Oxygen Therapy, ED [RC] ASDIRECTED 10/09/20 20:26 Admission Status [Patient Status] [ADT] Routine - Assessment/Plan Last 24 Hours: My Active Orders 10/09/20 18:52 EKG Documentation Completion [RC] STAT 10/09/20 18:53 Peripheral IV Care [RC] . DIRECTED Sodium Chloride 0.9% [Saline Flush] 10 ml FLUSH ASDIRECTED PRN Peripheral IV Insertion Adult [OM.PC] Routine 10/09/20 18:54 Oxygen Therapy, ED [RC] ASDIRECTED 10/09/20 20:26 Admission Status [Patient Status] [ADT] Routine
--- NOTE | 2020-10-09 20:29 | CR ---
Chest: Portable view of the chest was obtained. Comparison: Prior chest x-ray of 05/29/20. Slight scarring appears to be present within both lung bases. Lungs otherwise are clear. Heart size is normal. Tortuous thoracic aorta is seen. Prior surgery is seen within the left shoulder. Osteopenia is present. Impression: 1. Findings as described above. 2. Nothing acute is definitely appreciated. Diagnostic code #2
[2020-10-09] MEDS ORDERED: Acetaminophen 325 MG Tab PO PRN (22:58)
[2020-10-10] MEDS ORDERED: Ibuprofen 400 MG Tab PO PRN (04:30)
[2020-10-10] MEDS ORDERED: Lactated Ringers 1,000 ML IV SCH ×2 (05:00→11:30)
[2020-10-10] MEDS: cefTRIAXone 1 GM in Sodium Chloride 0.9% 100 ML IV SCH (05:21)
[2020-10-10] MEDS ORDERED: METRONIDAZOLE TOP PRN (06:45)
--- NOTE | 2020-10-10 06:49 | PCM.HP.2 ---
H&P History of Present Illness - General Date of Service: 10/10/20 Admit Problem/Dx: Admission Diagnosis/Problem Admission Diagnosis/Problem Hypoxia Source of Information: Patient History Limitations: Reports: No Limitations - History of Present Illness Initial Comments - Free Text/Narative: The patient is a 79-year-old gentleman who had presented to the emergency room for evaluation of his previously noted COVID-19 disease. The patient had been given IV Regeneron. He was doing okay until yesterday presenting at the emergency department with hypoxia. Patient reported that he had a fever of 101.3. The patient's illness started approximately 3 days ago. The patient has been complaining of a productive cough. He has been producing some sputum. Patient has denied any nausea or vomiting. The patient denies any tobacco usage. He is currently on Eliquis for pulmonary embolism. The patient also has been taking medication for multiple myeloma. Patient has denied any pain from this. The patient has no sick contacts. The patient reports that he and his have both taken 2 injections of the Pfizer vaccine. Onset of Symptoms: Reports: Gradual Duration of Symptoms: Reports: Day(s):, Getting Worse Location: Reports: Generalized Quality: Reports: Ache Severity: Moderate Improves with: Reports: Rest Worsens with: Reports: Breathing Context: Denies: Sick Contact Associated Symptoms: Reports: cough w sputum, Diaphoresis, Fever/Chills, Shortness of Breath - Related Data Allergies/Adverse Reactions: Allergies Allergy/AdvReac Type Severity Reaction Status Date / Time ciprofloxacin [From Cipro] Allergy Unknown Other Verified 10/09/20 18:34 Sulfa (Sulfonamide Allergy Unknown Other Verified 10/09/20 18:34 Antibiotics) Home Medications: Home Meds Acyclovir 400 mg PO BID 11/03/19 [History] Cholecalciferol (Vitamin D3) [Vitamin D3] 2,000 mg PO DAILY 11/03/19 [History] Fluconazole [Diflucan] 400 mg PO DAILY 11/03/19 [History] Levothyroxine 125 mcg PO DAILY 11/03/19 [History] Rosuvastatin [Crestor] 20 mg PO DAILY 11/03/19 [History] Tamsulosin [Flomax] 0.4 mg PO DAILY 11/03/19 [History] metroNIDAZOLE [Noritate] 1 dose TOP BID PRN 11/03/19 [History] Apixaban [Eliquis] 5 mg PO BID 10/09/20 [History] Atovaquone 10 ml PO DAILY 10/09/20 [History] Cyclobenzaprine [Flexeril] 10 mg PO TID PRN 10/09/20 [History] Past Medical History HEENT History: Reports: Cataract, Impaired Vision Other HEENT History: wears eyeglasses. Cardiovascular History: Reports: High Cholesterol, Hypertension Respiratory History: Reports: None, Bronchitis, Recurrent, Sleep Apnea, Other (See Below) Other Respiratory History: wears C-PAP. Gastrointestinal History: Reports: None Genitourinary History: Reports: Prostate Disorder Musculoskeletal History: Reports: None Neurological History: Reports: None Endocrine/Metabolic History: Reports: Hypothyroidism, Obesity/BMI 30+ Hematologic History: Reports: Blood Transfusion(s) Oncologic (Cancer) History: Reports: Other (See Below) Other Oncologic History: multiple myleoma. Dermatologic History: Reports: Other (See Below) Other Dermatologic History: rosacea, vitiligo. - Infectious Disease History Infectious Disease History: Reports: Chicken Pox, Measles, Novel Coronavirus - Past Surgical History HEENT Surgical History: Reports: Cataract Surgery Cardiovascular Surgical History: Reports: None GI Surgical History: Reports: Cholecystectomy, Hernia, Inguinal, Hernia Repair/Other Endocrine Surgical History: Reports: None Musculoskeletal Surgical History: Reports: Knee Replacement Oncologic Surgical History: Reports: None Dermatological Surgical History: Reports: None - History Comment History Comment: Has had both COVID-19 vaccinations ([facility]) April 2020 Social & Family History - Family History Family Medical History: Unobtainable - Tobacco Use Tobacco Use Status *Q: Former Tobacco User Years of Tobacco use: 3 Used Tobacco, but Quit: No Second Hand Smoke Exposure: No - Caffeine Use Caffeine Use: Reports: Coffee Other Caffeine Use: 2 cups of coffee a day - Recreational Drug Use Recreational Drug Use: No - Living Situation & Occupation Living situation: Reports: , with Spouse Occupation: Retired H&P Review of Systems - Review of Systems: Review Of Systems: See Below General: Reports: Fever, Chills, Weakness, Diaphoresis HEENT: Reports: No Symptoms Pulmonary: Reports: Shortness of Breath, Wheezing, Cough, Sputum Cardiovascular: Reports: No Symptoms Gastrointestinal: Reports: No Symptoms Genitourinary: Reports: Urgency Musculoskeletal: Reports: No Symptoms Skin: Reports: No Symptoms Psychiatric: Reports: No Symptoms Neurological: Reports: No Symptoms Hematologic/Lymphatic: Reports: Other (Multiple myeloma) Immunologic: Reports: No Symptoms Exam - Exam Exam: See Below - Vital Signs Vital Signs: Last Vital Signs Temp 37.7 C 10/10/20 05:26 Pulse 104 H 10/10/20 04:18 Resp 24 H 10/10/20 05:26 BP 102/63 10/10/20 04:18 Pulse Ox 92 L 10/10/20 06:21 Weight: 111.266 kg - Exam Quality Assessment: Supplemental Oxygen, DVT Prophylaxis General: Alert, Oriented, Cooperative HEENT: EACs Clear, EOMI, Mucosa Moist & [place], PERRLA. No: Conjunctiva Clear (Bilateral conjunctival inflammation), Hearing Intact (Hard of hearing) Neck: Supple, Trachea Midline Lungs: Decreased Breath Sounds, Rales (Predominantly right lung) Cardiovascular: Regular Rate, Regular Rhythm GI/Abdominal Exam: Normal Bowel Sounds, Soft, Non-Tender, No Distention (Male) Exam: Deferred Rectal (Males) Exam: Deferred Back Exam: Normal Inspection, Full Range of Motion Extremities: Normal Inspection, No Pedal Edema Skin: Warm, Intact, Moist Neurological: Normal Speech, Normal Tone Neuro Extensive - Mental Status: Alert, Oriented x3 Psychiatric: Alert, Normal Affect, Normal Mood - Patient Data Lab Results Last 24 hrs: Laboratory Results - last 24 hr 10/09/20 10/09/20 10/09/20 Range/Units 19:15 19:15 19:15 WBC 8.08 (4.23-9.07) K/mm3 RBC 5.30 (4.63-6.08) M/mm3 Hgb 16.3 D (13.7-17.5) gm/dl Hct 47.8 (40.1-51.0) % MCV 90.2 (79.0-92.2) fl MCH 30.8 (25.7-32.2) pg MCHC 34.1 (32.2-35.5) g/dl RDW Std Deviation 55.3 H (35.1-43.9) fL Plt Count 91 L D (163-337) K/mm3 MPV 10.6 (9.4-12.3) fl Neut % (Auto) 82.9 H (34.0-67.9) % Lymph % (Auto) 10.5 L (21.8-53.1) % [place] % (Auto) 6.3 (5.3-12.2) % Eos % (Auto) 0.2 L (0.8-7.0) Baso % (Auto) 0.0 L (0.1-1.2) % Neut # (Auto) 6.69 H (1.78-5.38) K/mm3 Lymph # (Auto) 0.85 L (1.32-3.57) K/mm3 [place] # (Auto) 0.51 (0.30-0.82) K/mm3 Eos # (Auto) 0.02 L (0.04-0.54) K/mm3 Baso # (Auto) 0.00 L (0.01-0.08) K/mm3 Manual Slide Review Abnormal smear PT 12.1 H (9.7-12.0) SECONDS INR 1.13 APTT 29.6 (21.7-31.4) SECONDS D-Dimer, Quantitative 0.25 (0.19-0.50) mg/L Sodium (136-145) mEq/L Potassium (3.5-5.1) mEq/L Chloride (98-107) mEq/L Carbon Dioxide (21-32) mEq/L Anion Gap (5-15) BUN (7-18) mg/dL Creatinine (0.7-1.3) mg/dL Est Cr Clr Drug Dosing mL/min Estimated GFR (MDRD) (>60) mL/min BUN/Creatinine Ratio (14-18) Glucose (70-99) mg/dL Lactic Acid (0.4-2.0) mmol/L Calcium (8.5-10.1) mg/dL Magnesium (1.8-2.4) mg/dL Total Bilirubin (0.2-1.0) mg/dL AST (15-37) U/L ALT (16-63) U/L Alkaline Phosphatase (46-116) U/L Troponin I (0.00-0.056) ng/mL C-Reactive Protein 17.5 H* (<1.0) mg/dL NT-Pro-B Natriuret Pep (0-450) pg/mL Total Protein (6.4-8.2) g/dl Albumin (3.4-5.0) g/dl Globulin gm/dL Albumin/Globulin Ratio (1-2) 10/09/20 10/09/20 10/09/20 Range/Units 19:15 19:15 19:15 WBC (4.23-9.07) K/mm3 RBC (4.63-6.08) M/mm3 Hgb (13.7-17.5) gm/dl Hct (40.1-51.0) % MCV (79.0-92.2) fl MCH (25.7-32.2) pg MCHC (32.2-35.5) g/dl RDW Std Deviation (35.1-43.9) fL Plt Count (163-337) K/mm3 MPV (9.4-12.3) fl Neut % (Auto) (34.0-67.9) % Lymph % (Auto) (21.8-53.1) % [place] % (Auto) (5.3-12.2) % Eos % (Auto) (0.8-7.0) Baso % (Auto) (0.1-1.2) % Neut # (Auto) (1.78-5.38) K/mm3 Lymph # (Auto) (1.32-3.57) K/mm3 [place] # (Auto) (0.30-0.82) K/mm3 Eos # (Auto) (0.04-0.54) K/mm3 Baso # (Auto) (0.01-0.08) K/mm3 Manual Slide Review PT (9.7-12.0) SECONDS INR APTT (21.7-31.4) SECONDS D-Dimer, Quantitative (0.19-0.50) mg/L Sodium 144 (136-145) mEq/L Potassium 3.5 (3.5-5.1) mEq/L Chloride 102 (98-107) mEq/L Carbon Dioxide 29 (21-32) mEq/L Anion Gap 16.5 H (5-15) BUN 30 H (7-18) mg/dL Creatinine 1.8 H (0.7-1.3) mg/dL Est Cr Clr Drug Dosing 36.02 mL/min Estimated GFR (MDRD) 37 (>60) mL/min BUN/Creatinine Ratio 16.7 (14-18) Glucose 136 H (70-99) mg/dL Lactic Acid 0.9 (0.4-2.0) mmol/L Calcium 8.2 L (8.5-10.1) mg/dL Magnesium 2.0 (1.8-2.4) mg/dL Total Bilirubin 1.7 H (0.2-1.0) mg/dL AST 23 (15-37) U/L ALT 25 (16-63) U/L Alkaline Phosphatase 76 (46-116) U/L Troponin I < 0.017 (0.00-0.056) ng/mL C-Reactive Protein (<1.0) mg/dL NT-Pro-B Natriuret Pep 335 (0-450) pg/mL Total Protein 6.3 L (6.4-8.2) g/dl Albumin 3.4 (3.4-5.0) g/dl Globulin 2.9 gm/dL Albumin/Globulin Ratio 1.2 (1-2) 10/10/20 10/10/20 10/10/20 Range/Units 05:15 05:15 05:15 WBC 11.53 H (4.23-9.07) K/mm3 RBC 5.04 (4.63-6.08) M/mm3 Hgb 15.3 (13.7-17.5) gm/dl Hct 45.4 (40.1-51.0) % MCV 90.1 (79.0-92.2) fl MCH 30.4 (25.7-32.2) pg MCHC 33.7 (32.2-35.5) g/dl RDW Std Deviation 55.0 H (35.1-43.9) fL Plt Count 79 L (163-337) K/mm3 MPV 10.9 (9.4-12.3) fl Neut % (Auto) 85.8 H (34.0-67.9) % Lymph % (Auto) 6.6 L (21.8-53.1) % [place] % (Auto) 7.2 (5.3-12.2) % Eos % (Auto) 0.1 L (0.8-7.0) Baso % (Auto) 0.1 (0.1-1.2) % Neut # (Auto) 9.90 H (1.78-5.38) K/mm3 Lymph # (Auto) 0.76 L (1.32-3.57) K/mm3 [place] # (Auto) 0.83 H (0.30-0.82) K/mm3 Eos # (Auto) 0.01 L (0.04-0.54) K/mm3 Baso # (Auto) 0.01 (0.01-0.08) K/mm3 Manual Slide Review PT (9.7-12.0) SECONDS INR APTT (21.7-31.4) SECONDS D-Dimer, Quantitative (0.19-0.50) mg/L Sodium 142 (136-145) mEq/L Potassium 3.0 L (3.5-5.1) mEq/L Chloride 104 (98-107) mEq/L Carbon Dioxide 27 (21-32) mEq/L Anion Gap 14.0 (5-15) BUN 33 H (7-18) mg/dL Creatinine 1.9 H (0.7-1.3) mg/dL Est Cr Clr Drug Dosing 34.13 mL/min Estimated GFR (MDRD) 34 (>60) mL/min BUN/Creatinine Ratio 17.4 (14-18) Glucose 174 H (70-99) mg/dL Lactic Acid 0.8 (0.4-2.0) mmol/L Calcium 7.9 L (8.5-10.1) mg/dL Magnesium 1.9 (1.8-2.4) mg/dL Total Bilirubin 1.7 H (0.2-1.0) mg/dL AST 24 (15-37) U/L ALT 25 (16-63) U/L Alkaline Phosphatase 67 (46-116) U/L Troponin I (0.00-0.056) ng/mL C-Reactive Protein (<1.0) mg/dL NT-Pro-B Natriuret Pep (0-450) pg/mL Total Protein 5.7 L (6.4-8.2) g/dl Albumin 3.0 L (3.4-5.0) g/dl Globulin 2.7 gm/dL Albumin/Globulin Ratio 1.1 (1-2) Result Diagrams: 10/10/20 05:15 10/10/20 05:15 Sepsis Event Note - Evaluation Sepsis Screening Result: Possible Sepsis Risk - Focused Exam Vital Signs: Vital Signs Temp Pulse Resp BP Pulse Ox Pulse Ox 10/10/20 06:21 92 L 10/10/20 05:26 37.7 C 24 H 10/10/20 05:03 92 L 10/10/20 04:18 38.3 C H 104 H 24 H 102/63 92 L 10/10/20 03:00 25 H 10/10/20 02:47 38.4 C H 10/10/20 02:44 89 L 10/10/20 02:43 103 H 18 91 L 10/10/20 02:39 38.4 C H 106 H 34 H 118/78 89 L 10/09/20 22:32 36.8 C 97 22 H 135/82 90 L - Problem List (1) Sepsis SNOMED Code(s): 42549740 ICD Code: A41.9 - SEPSIS, UNSPECIFIED ORGANISM Status: Acute Priority: High Current Visit: Yes Problem Details: In setting of COVID-19 disease. Qualifiers: Sepsis type: sepsis due to unspecified organism Sepsis acute organ dysfunction status: with acute organ dysfunction Severe sepsis acute organ dysfunction type: acute respiratory failure Acute respiratory failure type: with hypoxia Severe sepsis shock status: without septic shock Qualified Code(s): A41.9 - Sepsis, unspecified organism; R65.20 - Severe sepsis without septic shock; J96.01 - Acute respiratory failure with hypoxia (2) Acute respiratory failure SNOMED Code(s): 02420931 ICD Code: J96.00 - ACUTE RESPIRATORY FAILURE, UNSP W HYPOXIA OR HYPERCAPNIA Status: Acute Priority: High Current Visit: Yes Qualifiers: Respiratory failure complication: hypoxia Qualified Code(s): J96.01 - Acute respiratory failure with hypoxia (3) COVID-19 SNOMED Code(s): 719723605 ICD Code: U07.1 - COVID-19 Status: Acute Priority: High Current Visit: Yes (4) Chronic anticoagulation SNOMED Code(s): 473760509 ICD Code: Z79.01 - [facility] (CURRENT) USE OF ANTICOAGULANTS Status: Acute Priority: High Current Visit: Yes Problem List Initiated/Reviewed/Updated: Yes Orders Last 24hrs: Active Orders 24 hr Category Date Time Status Admission Status [Patient Status] [ADT] Routine ADT 10/09/20 20:26 Active Activity as Tolerated [RC] BID Care 10/09/20 22:51 Active Chest Physiotherapy [RT Chest Physiotherapy] [] Care 10/10/20 06:40 Active ASDIRECTED Incentive Breathing [RT Incentive Spirometry] [] Care 10/10/20 06:41 Active Q1HWA Oxygen Therapy Adult [Oxygen Therapy] [] ASDIRECTED Care 10/09/20 22:57 Active RT Post Treatment Assessment [RC] Click to Edit Care 10/10/20 06:41 Active RT Pre-Treatment Assessment [RC] Click to Edit Care 10/10/20 06:41 Active Regular Diet [DIET] Diet 10/10/20 Breakfast Active BLOOD CULTURE [MREF] Stat Lab 10/10/20 03:10 Received BLOOD CULTURE [MREF] Stat Lab 10/10/20 03:15 Received CBC WITH AUTO DIFF [HEME] Routine Lab 10/10/20 05:15 Results Acetaminophen [TylenoL] Med 10/09/20 22:58 Active 975 mg PO Q6H PRN Albuterol [Proventil HFA] Med 10/10/20 06:41 Active See Dose Instructions INH Q4H PRN Apixaban [Eliquis] Med 10/10/20 09:00 Ordered 5 mg PO BID Atovaquone Med 10/10/20 09:00 Ordered 10 ml PO DAILY Cholecalciferol (Vitamin D3) [Vitamin D3] Med 10/10/20 09:00 Ordered 2,000 mg PO DAILY Fluconazole Med 10/10/20 09:00 Ordered 400 mg PO DAILY Lactated Ringers [Ringers, Lactated] 1,000 ml Med 10/10/20 05:00 Active IV ASDIRECTED Levothyroxine Med 10/10/20 09:00 Ordered 125 mcg PO DAILY Remdesivir 100 mg Med 10/10/20 13:00 Active Sodium Chloride 0.9% [Normal Saline] 100 ml IV Q24H Rosuvastatin Med 10/10/20 09:00 Ordered 20 mg PO DAILY Sodium Chloride 0.9% [Saline Flush] Med 10/09/20 18:53 Active 10 ml FLUSH ASDIRECTED PRN Tamsulosin [Flomax] Med 10/10/20 09:00 Ordered 0.4 mg PO DAILY cefTRIAXone [Rocephin] 1 gm Med 10/10/20 05:15 Active Sodium Chloride 0.9% [Normal Saline] 100 ml IV Q24H dexAMETHasone Med 10/10/20 09:00 Active 6 mg PO DAILY metroNIDAZOLE [Noritate] Med 10/10/20 06:45 Ordered 1 dose TOP BID PRN Blood Culture x2 Reflex Set [OM.PC] Stat Oth 10/10/20 02:49 Ordered Peripheral IV Insertion Adult [OM.PC] Routine Oth 10/09/20 18:53 Ordered Pulse Oximetry Continuous Monitoring [OM.PC] Routine Oth 10/09/20 23:01 Active Code Status [Resuscitation Status] Routine Resus Stat 10/09/20 22:50 Ordered Medication Orders Acetaminophen (Acetaminophen 325 Mg Tab) 975 mg PO Q6H PRN PRN Reason: Pain/Fever Last Admin: 10/10/20 02:47 Dose: 975 mg Documented by: LIBAN Albuterol (Albuterol 6.7 Gm Inhaler) 0 gm INH Q4H PRN PRN Reason: sob/wheezing Apixaban (Apixaban 5 Mg Tab) 5 mg PO BID [facility] Cholecalciferol (Cholecalciferol (Vitamin D3) 25 Mcg Tab) 50 mcg PO DAILY [facility] Dexamethasone (Dexamethasone 4 Mg Tab) 6 mg PO DAILY [facility] Remdesivir 100 mg/ Sodium (Chloride) 100 mls @ 100 mls/hr IV Q24H SARAH Stop: 10/13/20 13:59 Lactated Ringer's (Ringers, Lactated) 1,000 mls @ 125 mls/hr IV ASDIRECTED SARAH Last Admin: 10/10/20 05:21 Dose: 125 mls/hr Documented by: PRIMO Ceftriaxone Sodium 1 gm/ (Sodium Chloride) 100 mls @ 200 mls/hr IV Q24H SARAH Last Admin: 10/10/20 05:21 Dose: 200 mls/hr Documented by: PRIMO Levothyroxine Sodium (Levothyroxine 125 Mcg Tab) 125 mcg PO DAILY [facility] Non-Formulary Medication (Atovaquone) 10 ml PO DAILY [facility] Non-Formulary Medication (Fluconazole) 400 mg PO DAILY [facility] Non-Formulary Medication (Metronidazole [Noritate]) 1 dose TOP BID PRN PRN Reason: Rash Non-Formulary Medication (Rosuvastatin) 20 mg PO DAILY [facility] Sodium Chloride (Sodium Chloride 0.9% 10 Ml Syringe) 10 ml FLUSH ASDIRECTED PRN PRN Reason: Keep Vein Open Last Admin: 10/09/20 20:58 Dose: 10 ml Documented by: PETE Tamsulosin HCl (Tamsulosin 0.4 Mg Cap.Er) 0.4 mg PO DAILY [facility] Assessment/Plan Comment:: Patient is a 79-year-old gentleman who had been admitted to medical surgery floor for treatment of his worsening COVID-19. The patient has enough criteria to meet sepsis and the patient's lactate was normal. In the middle of the night the patient spiked a temperature of 101.3 F and he was started on IV fluids consisting of normal saline at 125 mL/h. Blood cultures were obtained. The patient was also started on IV renally dosed Rocephin 1 g every 24 hours. The patient is also started on remdesivir 100 mg IV on a daily basis. The patient also has been placed on dexamethasone 6 mg p.o. daily. The patient will have albuterol and Atrovent inhalers. He is also to have Acapella and incentive spirometry per RT. The patient will be kept on oxygen to keep his saturations between 90 and 92%. I have also ordered that the patient have DuoNeb treatments every 4 hours or as needed RT. The patient has been started on his home Eliquis and therefore will not need DVT prophylaxis. The patient has been given Tylenol for fever. The patient is unable to take NSAIDs due to his chronic anticoagulation. His anticoagulation is for DVT and pulmonary emboli in the past. The patient will have regular diet as tolerated. The patient is likely to be in hospital 4 to 5 days. His home medications have been reconciled. Repeat laboratory studies have been ordered for the morning. - Mortality Measure Prognosis:: Good
[2020-10-10] MEDS ORDERED: Acetaminophen 325 MG Tab PO PRN (07:08)
[2020-10-10] MEDS ORDERED: Morphine 2 MG/ML SYRINGE IVPUSH PRN (07:08)
[2020-10-10] MEDS ORDERED: Ondansetron 4 MG Tab.DIS PO PRN (07:08)
[2020-10-10] MEDS ORDERED: Temazepam 15 MG Cap PO PRN (07:08)
[2020-10-10] MEDS ORDERED: Docusate Sodium 100 MG Cap PO PRN (07:08)
[2020-10-10] MEDS ORDERED: oxyCODONE 5 MG Tab PO PRN (07:08)
[2020-10-10] MEDS ORDERED: Albuterol/Ipratropium 3.0-0.5 MG/3 ML Neb Soln NEB PRN (07:08)
[2020-10-10] MEDS: Cholecalciferol (Vitamin D3) 25 MCG Tab PO SCH (08:57)
[2020-10-10] MEDS: Tamsulosin 0.4 MG Cap.ER PO SCH (08:57)
[2020-10-10] MEDS: Dexamethasone 4 MG Tab PO SCH (08:57)
[2020-10-10] MEDS: Fluconazole 100 MG Tab PO SCH (08:57)
[2020-10-10] MEDS: Rosuvastatin 10 MG Tab PO SCH (08:58)
[2020-10-10] MEDS ORDERED: REMDESIVIR 200 MG in Sodium Chloride 0.9% 250 ML IV ONE (09:00)
[2020-10-10] MEDS: Apixaban 5 MG Tab PO SCH ×2 (09:44→21:40)
[2020-10-10] MEDS ORDERED: Non-Formulary Medication 1 Each (Albuterol 18 GM Inhaler) INH PRN (11:28)
[2020-10-10] MEDS: Acyclovir 200 MG Cap PO SCH ×2 (12:20→21:40)
[2020-10-10] MEDS ORDERED: REMDESIVIR 100 MG in Sodium Chloride 0.9% 100 ML IV SCH (13:00)
[2020-10-10] MEDS ORDERED: Furosemide 20 MG/2 ML VIAL IVPUSH ONE (14:55)
[2020-10-10] MEDS ORDERED: Potassium Chloride 20 MEQ Tab.ER PO ONE (15:00)
[2020-10-10] MEDS ORDERED: Potassium Chloride 10 MEQ in Premix Bag 1 BAG IV ONE (15:30)
[2020-10-10] MEDS: Gabapentin 100 MG Cap PO SCH (21:39)
[2020-10-10] MEDS: Polyethylene Glycol 3350 Powder 17 GM Packet PO SCH (21:42)
[2020-10-11] MEDS: cefTRIAXone 1 GM in Sodium Chloride 0.9% 100 ML IV SCH (06:22)
[2020-10-11] MEDS: Levothyroxine 125 MCG Tab PO SCH (06:23)
--- NOTE | 2020-10-11 07:12 | PCM.PN ---
- General Info Date of Service: 10/11/20 Admission Dx/Problem (Free Text): covid pneumonia/acute respiratory failure with hypoxia Subjective Update: Patient is feeling that he is having a little more crackling in his lungs this morning. He states that he is feeling short of breath but no chest pain nausea vomiting diarrhea constipation or other symptoms. He does not feel that he is struggling to breathe any more than when he is resting when he is getting up and walking. - Review of Systems General: Reports: Weakness, Fatigue HEENT: Reports: No Symptoms Pulmonary: Reports: Shortness of Breath, Cough, Other (A little yellow thick sputum.) Gastrointestinal: Reports: No Symptoms Genitourinary: Reports: No Symptoms Musculoskeletal: Reports: No Symptoms Skin: Reports: No Symptoms Neurological: Reports: No Symptoms Psychiatric: Reports: No Symptoms - Patient Data Vitals - Most Recent: Last Vital Signs Temp 98.8 F 10/11/20 03:55 Pulse 66 10/11/20 03:55 Resp 16 10/11/20 04:00 BP 126/86 10/11/20 03:55 Pulse Ox 91 L 10/11/20 03:55 Weight - Most Recent: 249 lb 1.6 oz I&O - Last 24 Hours: Intake & Output 10/10/20 10/11/20 10/11/20 22:59 06:59 14:59 Intake Total 1070 650 Output Total 1100 Balance 1070 -450 Lab Results Last 24 Hours: Laboratory Results - last 24 hr 10/11/20 10/11/20 Range/Units 05:58 05:58 WBC 6.72 (4.23-9.07) K/mm3 RBC 4.79 (4.63-6.08) M/mm3 Hgb 14.4 (13.7-17.5) gm/dl Hct 42.7 (40.1-51.0) % MCV 89.1 (79.0-92.2) fl MCH 30.1 (25.7-32.2) pg MCHC 33.7 (32.2-35.5) g/dl RDW Std Deviation 53.9 H (35.1-43.9) fL Plt Count 84 L (163-337) K/mm3 MPV 11.3 (9.4-12.3) fl Neut % (Auto) 87.7 H (34.0-67.9) % Lymph % (Auto) 7.7 L (21.8-53.1) % Eddy % (Auto) 4.3 L (5.3-12.2) % Eos % (Auto) 0 L (0.8-7.0) Baso % (Auto) 0.0 L (0.1-1.2) % Neut # (Auto) 5.89 H (1.78-5.38) K/mm3 Lymph # (Auto) 0.52 L (1.32-3.57) K/mm3 Eddy # (Auto) 0.29 L (0.30-0.82) K/mm3 Eos # (Auto) 0.00 L (0.04-0.54) K/mm3 Baso # (Auto) 0.00 L (0.01-0.08) K/mm3 Manual Slide Review Abnormal smear D-Dimer, Quantitative 0.38 (0.19-0.50) mg/L Med Orders - Current: Current Medications Acetaminophen (Acetaminophen 325 Mg Tab) 975 mg PO Q6H PRN PRN Reason: Pain/Fever Last Admin: 10/10/20 02:47 Dose: 975 mg Documented by: Acetaminophen (Acetaminophen 325 Mg Tab) 650 mg PO Q4H PRN PRN Reason: Pain (Mild 1-3)/fever Acyclovir (Acyclovir 200 Mg Cap) 400 mg PO BID [facility] Last Admin: 10/10/20 21:40 Dose: 400 mg Documented by: Albuterol (Albuterol 6.7 Gm Inhaler) 0 gm INH Q4H PRN PRN Reason: sob/wheezing Albuterol/Ipratropium (Albuterol/Ipratropium 3.0-0.5 Mg/3 Ml Neb Soln) 3 ml NEB Q4H PRN PRN Reason: Shortness Of Breath/wheezing Allopurinol (Allopurinol 100 Mg Tab) 50 mg PO DAILY [facility] Apixaban (Apixaban 5 Mg Tab) 5 mg PO BID [facility] Last Admin: 10/10/20 21:40 Dose: 5 mg Documented by: Bumetanide (Bumetanide 1 Mg Tab) 1 mg PO DAILY [facility] Cholecalciferol (Cholecalciferol (Vitamin D3) 25 Mcg Tab) 50 mcg PO DAILY [facility] Last Admin: 10/10/20 08:57 Dose: 50 mcg Documented by: Dexamethasone (Dexamethasone 4 Mg Tab) 6 mg PO DAILY [facility] Stop: 10/18/20 09:01 Last Admin: 10/10/20 08:57 Dose: 6 mg Documented by: Docusate Sodium (Docusate Sodium 100 Mg Cap) 100 mg PO BID PRN PRN Reason: Constipation Fluconazole (Fluconazole 100 Mg Tab) 400 mg PO DAILY [facility] Last Admin: 10/10/20 08:57 Dose: 400 mg Documented by: Gabapentin (Gabapentin 100 Mg Cap) 100 mg PO BID [facility] Last Admin: 10/10/20 21:39 Dose: 100 mg Documented by: Ceftriaxone Sodium 1 gm/ (Sodium Chloride) 100 mls @ 200 mls/hr IV Q24H [facility] Last Admin: 10/11/20 06:22 Dose: 200 mls/hr Documented by: Remdesivir 100 mg/ Sodium (Chloride) 100 mls @ 100 mls/hr IV Q24H [facility] Stop: 10/14/20 09:59 Levothyroxine Sodium (Levothyroxine 125 Mcg Tab) 125 mcg PO ACBRK [facility] Last Admin: 10/11/20 06:23 Dose: 125 mcg Documented by: Ondansetron HCl (Ondansetron 4 Mg Tab.Dis) 4 mg PO Q4H PRN PRN Reason: nausea, able to take PO Oxycodone HCl (Oxycodone 5 Mg Tab) 5 mg PO Q4H PRN PRN Reason: Pain (moderate 4-6) Atovaquone 750 Mg/5 (Ml Oral.Susp Ptom) 0 each PO DAILY [facility] Polyethylene Glycol (Polyethylene Glycol 3350 Powder 17 Gm Packet) 17 gm PO BID [facility] Last Admin: 10/10/20 21:42 Dose: 17 gm Documented by: Rosuvastatin Calcium (Rosuvastatin 10 Mg Tab) 20 mg PO DAILY [facility] Last Admin: 10/10/20 08:58 Dose: 20 mg Documented by: Sodium Chloride (Sodium Chloride 0.9% 10 Ml Syringe) 10 ml FLUSH ASDIRECTED PRN PRN Reason: Keep Vein Open Last Admin: 10/09/20 20:58 Dose: 10 ml Documented by: Tamsulosin HCl (Tamsulosin 0.4 Mg Cap.Er) 0.4 mg PO DAILY [facility] Last Admin: 10/10/20 08:57 Dose: 0.4 mg Documented by: Temazepam (Temazepam 15 Mg Cap) 15 mg PO BEDTIME PRN PRN Reason: Sleep Zinc Sulfate (Zinc Sulfate 220 Mg Cap) 220 mg PO DAILY [facility] Discontinued Medications Acetaminophen (Acetaminophen 325 Mg Tab) 975 mg PO NOW ONE Stop: 10/09/20 18:55 Last Admin: 10/09/20 20:58 Dose: 975 mg Documented by: Dexamethasone (Dexamethasone 10 Mg/Ml Sdv) 6 mg IVPUSH ONETIME ONE Stop: 10/09/20 18:55 Last Admin: 10/09/20 20:58 Dose: 6 mg Documented by: Furosemide (Furosemide 20 Mg/2 Ml Vial) 20 mg IVPUSH ONETIME ONE Stop: 10/10/20 14:56 Last Admin: 10/10/20 15:14 Dose: 20 mg Documented by: Remdesivir 100 mg/ Sodium (Chloride) 100 mls @ 100 mls/hr IV Q24H [facility] Stop: 10/13/20 13:59 Lactated Ringer's (Ringers, Lactated) 1,000 mls @ 125 mls/hr IV ASDIRECTED [facility] Last Admin: 10/10/20 05:21 Dose: 125 mls/hr Documented by: Remdesivir 200 mg/ Sodium (Chloride) 250 mls @ 250 mls/hr IV ONETIME ONE Stop: 10/10/20 09:59 Last Admin: 10/10/20 08:56 Dose: 250 mls/hr Documented by: Lactated Ringer's (Ringers, Lactated) 1,000 mls @ 75 mls/hr IV ASDIRECTED [facility] Potassium Chloride 10 meq/ (Premix) 100 mls @ 100 mls/hr IV ONETIME ONE Stop: 10/10/20 16:29 Last Admin: 10/10/20 15:14 Dose: 100 mls/hr Documented by: Ibuprofen (Ibuprofen 400 Mg Tab) 400 mg PO Q6H PRN PRN Reason: Fever Morphine Sulfate (Morphine 2 Mg/Ml Syringe) 2 mg IVPUSH Q2H PRN PRN Reason: Pain (severe 7-10) Stop: 10/11/20 07:08 Non-Formulary Medication (Metronidazole [Noritate]) 1 dose TOP BID PRN PRN Reason: Rash Atovaquone 750 Mg/5 (Ml Oral.Susp) 0 each PO DAILY [facility] Last Admin: 08/31/21 08:59 Dose: Not Given Documented by: Potassium Chloride (Potassium Chloride 20 Meq Tab.Er) 20 meq PO ONETIME ONE Stop: 10/10/20 15:01 Last Admin: 10/10/20 15:14 Dose: 20 meq Documented by: - Exam General: Alert, Oriented, Cooperative HEENT: Pupils Equal, Pupils Reactive Neck: Supple Lungs: Crackles (Her lobe crackles are increased.), Rhonchi (Rhonchi/coarse breath sounds noted throughout, no wheezing) GI/Abdominal Exam: Normal Bowel Sounds (Male) Exam: No Hernia Back Exam: Normal Inspection Extremities: Normal Inspection Skin: Warm Wound/Incisions: Healing Well Neurological: No New Focal Deficit Psy/Mental Status: Alert, Normal Affect, Normal Mood - Patient Data Lab Results Last 24 hrs: Laboratory Results - last 24 hr 10/11/20 10/11/20 Range/Units 05:58 05:58 WBC 6.72 (4.23-9.07) K/mm3 RBC 4.79 (4.63-6.08) M/mm3 Hgb 14.4 (13.7-17.5) gm/dl Hct 42.7 (40.1-51.0) % MCV 89.1 (79.0-92.2) fl MCH 30.1 (25.7-32.2) pg MCHC 33.7 (32.2-35.5) g/dl RDW Std Deviation 53.9 H (35.1-43.9) fL Plt Count 84 L (163-337) K/mm3 MPV 11.3 (9.4-12.3) fl Neut % (Auto) 87.7 H (34.0-67.9) % Lymph % (Auto) 7.7 L (21.8-53.1) % Eddy % (Auto) 4.3 L (5.3-12.2) % Eos % (Auto) 0 L (0.8-7.0) Baso % (Auto) 0.0 L (0.1-1.2) % Neut # (Auto) 5.89 H (1.78-5.38) K/mm3 Lymph # (Auto) 0.52 L (1.32-3.57) K/mm3 Eddy # (Auto) 0.29 L (0.30-0.82) K/mm3 Eos # (Auto) 0.00 L (0.04-0.54) K/mm3 Baso # (Auto) 0.00 L (0.01-0.08) K/mm3 Manual Slide Review Abnormal smear D-Dimer, Quantitative 0.38 (0.19-0.50) mg/L Result Diagrams: 10/11/20 05:58 10/11/20 05:58 Sepsis Event Note - Evaluation Sepsis Screening Result: No Definite Risk - Focused Exam Vital Signs: Vital Signs Temp Pulse Resp BP Pulse Ox Pulse Ox 10/11/20 04:00 16 10/11/20 03:55 98.8 F 66 22 H 126/86 91 L 10/11/20 03:00 17 10/11/20 02:00 18 10/11/20 01:00 27 H 10/11/20 00:00 18 10/10/20 23:00 25 H 10/10/20 22:56 99.0 F 79 20 116/76 92 L 10/10/20 22:00 23 H 10/10/20 21:48 97.5 F 80 21 H 104/81 91 L 10/10/20 21:00 19 10/10/20 20:15 94 L 10/10/20 20:00 19 10/10/20 19:42 18 - Problem List Review Problem List Initiated/Reviewed/Updated: Yes - My Orders Last 24 Hours: My Active Orders 10/10/20 12:00 Acyclovir [Zovirax] 400 mg PO BID 10/10/20 21:00 Gabapentin [Neurontin] 100 mg PO BID polyethylene glycoL 3350 [MiraLAX] 17 gm PO BID 10/11/20 07:11 BASIC METABOLIC PANEL,BMP [CHEM] Routine 10/11/20 09:00 Bumetanide [Bumex] 1 mg PO DAILY allopurinoL [Zyloprim] 50 mg PO DAILY - Assessment Assessment:: The patient is a 79-year-old gentleman who had presented to the emergency room for evaluation of his previously noted COVID-19 disease. The patient had been given IV Regeneron. He was doing okay until yesterday presenting at the emergency department with hypoxia. Patient reported that he had a fever of 101.3. The patient's illness started approximately 3 days ago. The patient has been complaining of a productive cough. He has been producing some sputum. Patient has denied any nausea or vomiting. The patient denies any tobacco usage. He is currently on Eliquis for pulmonary embolism. The patient also has been taking medication for multiple myeloma. Patient has denied any pain from this. The patient has no sick contacts. The patient reports that he and his have both taken 2 injections of the Pfizer vaccine. Sepsis SNOMED Code(s): 22467865 ICD Code: A41.9 - SEPSIS, UNSPECIFIED ORGANISM Status: Acute Priority: High Current Visit: Yes Problem Details: In setting of COVID-19 disease. Qualifiers: Sepsis type: sepsis due to unspecified organism Sepsis acute organ dysfunction status: with acute organ dysfunction Severe sepsis acute organ dysfunction type: acute respiratory failure Acute respiratory failure type: with hypoxia Severe sepsis shock status: without septic shock Qualified Code(s): A41.9 - Sepsis, unspecified organism; R65.20 - Severe sepsis without septic shock; J96.01 - Acute respiratory failure with hypoxia 10/11/20- met sepsis criteria, negative lactate. Positive fever yesterday, IV fluids were stopped due to crackles and lasix x 1 was given yesterday afternoon. Cont on rocephin, remdesivir, duonebs, acapella, IS, RT, o2 with saturations between 88-92%, cont tylenol for fever. The patient still has significant crackles bilateral lower lobes. Another dose of Lasix is being given this morning. With the plan to reinspect breath sounds this afternoon to see if further diuresis will be needed. Acute respiratory failure SNOMED Code(s): 21580784 ICD Code: J96.00 - ACUTE RESPIRATORY FAILURE, UNSP W HYPOXIA OR HYPERCAPNIA Status: Acute Priority: High Current Visit: Yes Qualifiers: Respiratory failure complication: hypoxia Qualified Code(s): J96.01 - Acute respiratory failure with hypoxia 10/11 improving even with bilateral crackles that were worsened today. Patient is alert and orientated, no respiratory distress compared to yesterday. Continue with remdesivir, duo nebs, dexamethasone oxygen, RT COVID-19 pneumonia SNOMED Code(s): 210380137 ICD Code: U07.1 - COVID-19 Status: Acute Priority: High Current Visit: Yes 10/11/20 as stated under sepsis- will cont with present management Chronic anticoagulation SNOMED Code(s): 147966334 ICD Code: Z79.01 - ARTS MANAGER (CURRENT) USE OF ANTICOAGULANTS Status: Acute Priority: High Current Visit: Yes Problem List Initiated/Reviewed/Updated: Yes Orders Last 24hrs: 10/11/20 eliquis was held due to the drop in plt and will be restarted today. CAD/CHF history-we will continue home dose Bumex, periodic Lasix to help make patient euvolemic. Candidiasis-fluconazole continued hypothyroidism-continue Synthroid Myeloma-continue atovaquone per recommendations of oncology, also continue prophylactic acyclovir Hyperlipidemia-continue Crestor gout-continue allopurinol chronic pain-continue gabapentin oxycodone BPH-continue Flomax Constipation-continue MiraLAX, added docusate twice daily Insomnia-as needed Restoril full Code ppx eliquis time 36 min - Plan Plan:: Patient is a 79-year-old gentleman who had been admitted to medical surgery floor for treatment of his worsening COVID-19. The patient has enough criteria to meet sepsis and the patient's lactate was normal. In the middle of the n ight the patient spiked a temperature of 101.3 F and he was started on IV fluids consisting of normal saline at 125 mL/h. Blood cultures were obtained. The patient was also started on IV renally dosed Rocephin 1 g every 24 hours. The patient is also started on remdesivir 100 mg IV on a daily basis. The patient also has been placed on dexamethasone 6 mg p.o. daily. The patient will have albuterol and Atrovent inhalers. He is also to have Acapella and incentive spirometry per RT. The patient will be kept on oxygen to keep his saturations between 90 and 92%. I have also ordered that the patient have DuoNeb treatments every 4 hours or as needed RT. The patient has been started on his home Eliquis and therefore will not need DVT prophylaxis. The patient has been given Tylenol for fever. The patient is unable to take NSAIDs due to his chronic anticoagulation. His anticoagulation is for DVT and pulmonary emboli in the past. The patient will have regular diet as tolerated. The patient is likely to be in hospital 4 to 5 days. His home medications have been reconciled. Repeat laboratory studies have been ordered for the morning.
[2020-10-11] MEDS ORDERED: Furosemide 20 MG/2 ML VIAL IVPUSH ONE ×2 (07:18→09:00)
[2020-10-11] MEDS: Polyethylene Glycol 3350 Powder 17 GM Packet PO SCH ×2 (08:11→20:41)
[2020-10-11] MEDS: Gabapentin 100 MG Cap PO SCH ×2 (08:11→20:41)
[2020-10-11] MEDS: Fluconazole 100 MG Tab PO SCH (08:11)
[2020-10-11] MEDS: Zinc Sulfate 220 MG Cap PO SCH (08:12)
[2020-10-11] MEDS: Bumetanide 1 MG Tab PO SCH (08:12)
[2020-10-11] MEDS: Rosuvastatin 10 MG Tab PO SCH (08:12)
[2020-10-11] MEDS: Cholecalciferol (Vitamin D3) 25 MCG Tab PO SCH (08:12)
[2020-10-11] MEDS: Dexamethasone 4 MG Tab PO SCH (08:12)
[2020-10-11] MEDS: Acyclovir 200 MG Cap PO SCH ×2 (08:13→20:41)
[2020-10-11] MEDS: Tamsulosin 0.4 MG Cap.ER PO SCH (08:13)
[2020-10-11] MEDS: REMDESIVIR 100 MG in Sodium Chloride 0.9% 100 ML IV SCH (08:14)
[2020-10-11] MEDS: Allopurinol 100 MG Tab PO SCH (08:14)
[2020-10-11] MEDS: Apixaban 5 MG Tab PO SCH ×2 (08:14→20:41)
[2020-10-11] MEDS: ATOVAQUONE 750 MG/5 ML PO SCH (08:26)
[2020-10-11] MEDS ORDERED: Docusate Sodium 100 MG Cap PO PRN (08:33)
[2020-10-11] MEDS: Albuterol 6.7 GM Inhaler INH PRN ×3 (10:33→21:08)
[2020-10-12] MEDS: cefTRIAXone 1 GM in Sodium Chloride 0.9% 100 ML IV SCH (05:02)
[2020-10-12] MEDS: Levothyroxine 125 MCG Tab PO SCH (05:04)
[2020-10-12] MEDS: Albuterol 6.7 GM Inhaler INH PRN ×2 (08:17→13:41)
--- NOTE | 2020-10-12 08:30 | PCM.PN ---
- General Info Date of Service: 10/12/20 Admission Dx/Problem (Free Text): covid Subjective Update: states he is slightly unbalanced when walking. feels one more day and will be safe to dc home. We discussed o2 and he is hoping he will be able to go home without o2 tomorrow Functional Status: Reports: Pain Controlled, Tolerating Diet, Ambulating - Review of Systems General: Reports: No Symptoms, Weakness HEENT: Reports: No Symptoms Pulmonary: Reports: Shortness of Breath Cardiovascular: Reports: No Symptoms Gastrointestinal: Reports: No Symptoms Genitourinary: Reports: No Symptoms Musculoskeletal: Reports: No Symptoms Skin: Reports: No Symptoms Neurological: Reports: No Symptoms Psychiatric: Reports: No Symptoms - Patient Data Vitals - Most Recent: Last Vital Signs Temp 97.2 F 10/12/20 07:18 Pulse 78 10/12/20 07:18 Resp 18 10/12/20 07:18 BP 119/77 10/12/20 07:18 Pulse Ox 92 L 10/12/20 08:18 Weight - Most Recent: 250 lb 9.6 oz I&O - Last 24 Hours: Intake & Output 10/11/20 10/12/20 10/12/20 22:59 06:59 14:59 Intake Total 900 1000 Output Total 1600 1500 Balance -700 -500 Lab Results Last 24 Hours: Laboratory Results - last 24 hr 10/12/20 10/12/20 Range/Units 05:45 05:45 WBC 5.87 (4.23-9.07) K/mm3 RBC 4.73 (4.63-6.08) M/mm3 Hgb 14.5 (13.7-17.5) gm/dl Hct 41.9 (40.1-51.0) % MCV 88.6 (79.0-92.2) fl MCH 30.7 (25.7-32.2) pg MCHC 34.6 (32.2-35.5) g/dl RDW Std Deviation 53.1 H (35.1-43.9) fL Plt Count 97 L (163-337) K/mm3 MPV 11.0 (9.4-12.3) fl Sodium 141 (136-145) mEq/L Potassium 3.8 (3.5-5.1) mEq/L Chloride 104 (98-107) mEq/L Carbon Dioxide 25 (21-32) mEq/L Anion Gap 15.8 H (5-15) BUN 64 H (7-18) mg/dL Creatinine 2.1 H (0.7-1.3) mg/dL Est Cr Clr Drug Dosing 30.88 mL/min Estimated GFR (MDRD) 31 (>60) mL/min BUN/Creatinine Ratio 30.5 H (14-18) Glucose 316 H (70-99) mg/dL Calcium 8.1 L (8.5-10.1) mg/dL Florian Results Last 24 Hours: Microbiology 10/10/20 03:15 Blood Culture - Preliminary Blood - Venous - Lab Draw 10/10/20 03:10 Blood Culture - Preliminary Blood - Venous Med Orders - Current: Current Medications Acetaminophen (Acetaminophen 325 Mg Tab) 650 mg PO Q4H PRN PRN Reason: Pain (Mild 1-3)/fever Acyclovir (Acyclovir 200 Mg Cap) 400 mg PO BID [facility] Last Admin: 10/11/20 20:41 Dose: 400 mg Documented by: Albuterol (Albuterol 6.7 Gm Inhaler) 0 gm INH Q4H PRN PRN Reason: sob/wheezing Last Admin: 10/12/20 08:17 Dose: 2 inhalation Documented by: Albuterol/Ipratropium (Albuterol/Ipratropium 3.0-0.5 Mg/3 Ml Neb Soln) 3 ml NEB Q4H PRN PRN Reason: Shortness Of Breath/wheezing Allopurinol (Allopurinol 100 Mg Tab) 50 mg PO DAILY [facility] Last Admin: 10/11/20 08:14 Dose: 50 mg Documented by: Apixaban (Apixaban 5 Mg Tab) 5 mg PO BID [facility] Last Admin: 10/11/20 20:41 Dose: 5 mg Documented by: Bumetanide (Bumetanide 1 Mg Tab) 1 mg PO DAILY [facility] Last Admin: 10/11/20 08:12 Dose: 1 mg Documented by: Cholecalciferol (Cholecalciferol (Vitamin D3) 25 Mcg Tab) 50 mcg PO DAILY [facility] Last Admin: 10/11/20 08:12 Dose: 50 mcg Documented by: Dexamethasone (Dexamethasone 4 Mg Tab) 6 mg PO DAILY [facility] Stop: 10/18/20 09:01 Last Admin: 10/11/20 08:12 Dose: 6 mg Documented by: Docusate Sodium (Docusate Sodium 100 Mg Cap) 200 mg PO Q12H PRN PRN Reason: Constipation Fluconazole (Fluconazole 100 Mg Tab) 400 mg PO DAILY [facility] Last Admin: 10/11/20 08:11 Dose: 400 mg Documented by: Gabapentin (Gabapentin 100 Mg Cap) 100 mg PO BID [facility] Last Admin: 10/11/20 20:41 Dose: 100 mg Documented by: Ceftriaxone Sodium 1 gm/ (Sodium Chloride) 100 mls @ 200 mls/hr IV Q24H [facility] Last Admin: 10/12/20 05:02 Dose: 200 mls/hr Documented by: Remdesivir 100 mg/ Sodium (Chloride) 100 mls @ 100 mls/hr IV Q24H [facility] Stop: 10/14/20 09:59 Last Admin: 10/11/20 08:14 Dose: 100 mls/hr Documented by: Levothyroxine Sodium (Levothyroxine 125 Mcg Tab) 125 mcg PO ACBRK [facility] Last Admin: 10/12/20 05:04 Dose: 125 mcg Documented by: Ondansetron HCl (Ondansetron 4 Mg Tab.Dis) 4 mg PO Q4H PRN PRN Reason: nausea, able to take PO Oxycodone HCl (Oxycodone 5 Mg Tab) 5 mg PO Q4H PRN PRN Reason: Pain (moderate 4-6) Atovaquone 750 Mg/5 (Ml Oral.Susp Ptom) 0 each PO DAILY [facility] Last Admin: 10/11/20 08:26 Dose: 10 each Documented by: Polyethylene Glycol (Polyethylene Glycol 3350 Powder 17 Gm Packet) 17 gm PO BID [facility] Last Admin: 10/11/20 20:41 Dose: 17 gm Documented by: Rosuvastatin Calcium (Rosuvastatin 10 Mg Tab) 20 mg PO DAILY [facility] Last Admin: 10/11/20 08:12 Dose: 20 mg Documented by: Sodium Chloride (Sodium Chloride 0.9% 10 Ml Syringe) 10 ml FLUSH ASDIRECTED PRN PRN Reason: Keep Vein Open Last Admin: 10/09/20 20:58 Dose: 10 ml Documented by: Tamsulosin HCl (Tamsulosin 0.4 Mg Cap.Er) 0.4 mg PO DAILY [facility] Last Admin: 10/11/20 08:13 Dose: 0.4 mg Documented by: Temazepam (Temazepam 15 Mg Cap) 15 mg PO BEDTIME PRN PRN Reason: Sleep Zinc Sulfate (Zinc Sulfate 220 Mg Cap) 220 mg PO DAILY [facility] Last Admin: 10/11/20 08:12 Dose: 220 mg Documented by: Discontinued Medications Acetaminophen (Acetaminophen 325 Mg Tab) 975 mg PO NOW ONE Stop: 10/09/20 18:55 Last Admin: 10/09/20 20:58 Dose: 975 mg Documented by: Acetaminophen (Acetaminophen 325 Mg Tab) 975 mg PO Q6H PRN PRN Reason: Pain/Fever Last Admin: 10/10/20 02:47 Dose: 975 mg Documented by: Dexamethasone (Dexamethasone 10 Mg/Ml Sdv) 6 mg IVPUSH ONETIME ONE Stop: 10/09/20 18:55 Last Admin: 10/09/20 20:58 Dose: 6 mg Documented by: Docusate Sodium (Docusate Sodium 100 Mg Cap) 100 mg PO BID PRN PRN Reason: Constipation Furosemide (Furosemide 20 Mg/2 Ml Vial) 20 mg IVPUSH ONETIME ONE Stop: 10/10/20 14:56 Last Admin: 10/10/20 15:14 Dose: 20 mg Documented by: Furosemide (Furosemide 20 Mg/2 Ml Vial) 20 mg IVPUSH ONETIME ONE Stop: 10/11/20 09:01 Last Admin: 10/11/20 08:14 Dose: 20 mg Documented by: Remdesivir 100 mg/ Sodium (Chloride) 100 mls @ 100 mls/hr IV Q24H [facility] Stop: 10/13/20 13:59 Lactated Ringer's (Ringers, Lactated) 1,000 mls @ 125 mls/hr IV ASDIRECTED [facility] Last Admin: 10/10/20 05:21 Dose: 125 mls/hr Documented by: Remdesivir 200 mg/ Sodium (Chloride) 250 mls @ 250 mls/hr IV ONETIME ONE Stop: 10/10/20 09:59 Last Admin: 10/10/20 08:56 Dose: 250 mls/hr Documented by: Lactated Ringer's (Ringers, Lactated) 1,000 mls @ 75 mls/hr IV ASDIRECTED [facility] Potassium Chloride 10 meq/ (Premix) 100 mls @ 100 mls/hr IV ONETIME ONE Stop: 10/10/20 16:29 Last Admin: 10/10/20 15:14 Dose: 100 mls/hr Documented by: Ibuprofen (Ibuprofen 400 Mg Tab) 400 mg PO Q6H PRN PRN Reason: Fever Morphine Sulfate (Morphine 2 Mg/Ml Syringe) 2 mg IVPUSH Q2H PRN PRN Reason: Pain (severe 7-10) Stop: 10/11/20 07:08 Non-Formulary Medication (Metronidazole [Noritate]) 1 dose TOP BID PRN PRN Reason: Rash Atovaquone 750 Mg/5 (Ml Oral.Susp) 0 each PO DAILY [facility] Last Admin: 10/10/20 08:59 Dose: Not Given Documented by: Potassium Chloride (Potassium Chloride 20 Meq Tab.Er) 20 meq PO ONETIME ONE Stop: 10/10/20 15:01 Last Admin: 10/10/20 15:14 Dose: 20 meq Documented by: - Exam Quality Assessment: Supplemental Oxygen (1-2 liters overnight) General: Alert, Oriented, Cooperative, Mild Distress (while walking) HEENT: Pupils Equal, Pupils Reactive Neck: Supple Lungs: Clear to Auscultation, Normal Respiratory Effort Cardiovascular: Regular Rate, Regular Rhythm GI/Abdominal Exam: Normal Bowel Sounds, Soft, Non-Tender Back Exam: Normal Inspection Extremities: Normal Inspection Skin: Warm, Dry Wound/Incisions: Healing Well Neurological: No New Focal Deficit Psy/Mental Status: Alert, Normal Affect, Normal Mood - Patient Data Lab Results Last 24 hrs: Laboratory Results - last 24 hr 10/12/20 10/12/20 Range/Units 05:45 05:45 WBC 5.87 (4.23-9.07) K/mm3 RBC 4.73 (4.63-6.08) M/mm3 Hgb 14.5 (13.7-17.5) gm/dl Hct 41.9 (40.1-51.0) % MCV 88.6 (79.0-92.2) fl MCH 30.7 (25.7-32.2) pg MCHC 34.6 (32.2-35.5) g/dl RDW Std Deviation 53.1 H (35.1-43.9) fL Plt Count 97 L (163-337) K/mm3 MPV 11.0 (9.4-12.3) fl Sodium 141 (136-145) mEq/L Potassium 3.8 (3.5-5.1) mEq/L Chloride 104 (98-107) mEq/L Carbon Dioxide 25 (21-32) mEq/L Anion Gap 15.8 H (5-15) BUN 64 H (7-18) mg/dL Creatinine 2.1 H (0.7-1.3) mg/dL Est Cr Clr Drug Dosing 30.88 mL/min Estimated GFR (MDRD) 31 (>60) mL/min BUN/Creatinine Ratio 30.5 H (14-18) Glucose 316 H (70-99) mg/dL Calcium 8.1 L (8.5-10.1) mg/dL Result Diagrams: 10/12/20 05:45 10/12/20 05:45 Florian Results Last 24 hrs: Microbiology 10/10/20 03:15 Blood Culture - Preliminary Blood - Venous - Lab Draw 10/10/20 03:10 Blood Culture - Preliminary Blood - Venous Sepsis Event Note - Evaluation Sepsis Screening Result: No Definite Risk - Focused Exam Vital Signs: Vital Signs Temp Pulse Resp BP Pulse Ox Pulse Ox 10/12/20 08:18 92 L 10/12/20 07:18 97.2 F 78 14 119/77 92 L 10/12/20 07:00 18 10/12/20 06:00 14 10/12/20 05:00 14 10/12/20 04:00 15 10/12/20 03:05 97.9 F 66 16 140/83 94 L 10/12/20 03:00 16 10/12/20 02:00 15 10/12/20 01:00 16 10/12/20 00:00 18 10/11/20 23:49 97.5 F 80 16 109/72 94 L 10/11/20 23:00 16 10/11/20 22:00 22 H 10/11/20 21:09 93 L 10/11/20 21:00 27 H 10/11/20 20:50 22 H - Problem List Review Problem List Initiated/Reviewed/Updated: Yes - My Orders Last 24 Hours: My Active Orders 10/11/20 08:33 Docusate Sodium [Colace] 200 mg PO Q12H PRN 10/11/20 09:00 Bumetanide [Bumex] 1 mg PO DAILY allopurinoL [Zyloprim] 50 mg PO DAILY - Assessment Assessment:: The patient is a 79-year-old gentleman who had presented to the emergency room for evaluation of his previously noted COVID-19 disease. The patient had been given IV Regeneron. He was doing okay until yesterday presenting at the emergency department with hypoxia. Patient reported that he had a fever of 101.3. The patient's illness started approximately 3 days ago. The patient has been complaining of a productive cough. He has been producing some sputum. Patient has denied any nausea or vomiting. The patient denies any tobacco usage . He is currently on Eliquis for pulmonary embolism. The patient also has been taking medication for multiple myeloma. Patient has denied any pain from this. The patient has no sick contacts. The patient reports that he and his have both taken 2 injections of the Pfizer vaccine. Sepsis SNOMED Code(s): 43848655 ICD Code: A41.9 - SEPSIS, UNSPECIFIED ORGANISM Status: Acute Priority: High Current Visit: Yes Problem Details: In setting of COVID-19 disease. Qualifiers: Sepsis type: sepsis due to unspecified organism Sepsis acute organ dysfunction status: with acute organ dysfunction Severe sepsis acute organ dysfunction type: acute respiratory failure Acute respiratory failure type: with hypoxia Severe sepsis shock status: without septic shock Qualified Code(s): A41.9 - Sepsis, unspecified organism; R65.20 - Severe sepsis without septic shock; J96.01 - Acute respiratory failure with hypoxia 10/11/20- met sepsis criteria, negative lactate. Positive fever yesterday, IV fluids were stopped due to crackles and lasix x 1 was given yesterday afternoon. Cont on rocephin, remdesivir, duonebs, acapella, IS, RT, o2 with saturations between 88-92%, cont tylenol for fever. The patient still has significant crackles bilateral lower lobes. Another dose of Lasix is being given this morning. With the plan to reinspect breath sounds this afternoon to see if further diuresis will be needed. Acute respiratory failure SNOMED Code(s): 87237086 ICD Code: J96.00 - ACUTE RESPIRATORY FAILURE, UNSP W HYPOXIA OR HYPERCAPNIA Status: Acute Priority: High Current Visit: Yes Qualifiers: Respiratory failure complication: hypoxia Qualified Code(s): J96.01 - Acute respiratory failure with hypoxia 10/11 improving even with bilateral crackles that were worsened today. Patient is alert and orientated, no respiratory distress compared to yesterday. Continue with remdesivir, duo nebs, dexamethasone oxygen, RT 10/12 only on 1 L while ambulating, improved tremendously. Patient likely will discharge home tomorrow. Mild balance issues while walking. Physical therapy to evaluate, respiratory therapy to evaluate oxygen needs. 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 10/12 10 you on Eliquis CAD/CHF history-we will continue home dose Bumex, periodic Lasix to help make patient euvolemic. 10/12 mild increase in creatinine secondary to Lasix. The patient has reduced significantly on oxygen needs. He will continue on his home dose of Bumex at discharge. Candidiasis-fluconazole continued 10/12 continue at discharge and follow-up with primary care hypothyroidism-continue Synthroid Myeloma-continue atovaquone per recommendations of oncology, also continue prophylactic acyclovir Hyperlipidemia-continue Crestor gout-continue allopurinol chronic pain-continue gabapentin oxycodone BPH-continue Flomax Constipation-continue MiraLAX, added docusate twice daily Insomnia-as needed Restoril full Code ppx eliquis time 36 min - Plan Plan:: Patient is a 79-year-old gentleman who had been admitted to medical surgery floor for treatment of his worsening COVID-19. The patient has enough criteria to meet sepsis and the patient's lactate was normal. In the middle of the night the patient spiked a temperature of 101.3 F and he was started on IV fluids consisting of normal saline at 125 mL/h. Blood cultures were obtained. The patient was also started on IV renally dosed Rocephin 1 g every 24 hours. The patient is also started on remdesivir 100 mg IV on a daily basis. The patient also has been placed on dexamethasone 6 mg p.o. daily. The patient will have albuterol and Atrovent inhalers. He is also to have Acapella and incentive spirometry per RT. The patient will be kept on oxygen to keep his saturations between 90 and 92%. I have also ordered that the patient have DuoNeb treatments every 4 hours or as needed RT. The patient has been started on his home Eliquis and therefore will not need DVT prophylaxis. The patient has been given Tylenol for fever. The patient is unable to take NSAIDs due to his chronic anticoagulation. His anticoagulation is for DVT and pulmonary emboli in the past. The patient will have regular diet as tolerated. The patient is likely to be in hospital 4 to 5 days. His home medications have been reconciled. Repeat laboratory studies have been ordered for the morning.
--- NOTE | 2020-10-12 08:31 | PCM.DCSUM1 ---
Discharge Summary - Hospital Course Free Text/Narrative:: Acute respiratory failure SNOMED Code(s): 04155577 ICD Code: J96.00 - ACUTE RESPIRATORY FAILURE, UNSP W HYPOXIA OR HYPERCAPNIA Status: Acute Priority: High Current Visit: Yes Qualifiers: Respiratory failure complication: hypoxia Qualified Code(s): J96.01 - Acute respiratory failure with hypoxia 10/11 improving even with bilateral crackles that were worsened today. Patient is alert and orientated, no respiratory distress compared to yesterday. Continue with remdesivir, duo nebs, dexamethasone oxygen, RT 10/12 only on 1 L while ambulating, improved tremendously. Patient likely will discharge home tomorrow. Mild balance issues while walking. Physical therapy to evaluate, respiratory therapy to evaluate oxygen needs. 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 10/12 10 you on Eliquis 10/13 cont on home eliquis and follow up with pcp CAD/CHF history-we will continue home dose Bumex, periodic Lasix to help make patient euvolemic. 10/12 mild increase in creatinine secondary to Lasix. The patient has reduced significantly on oxygen needs. He will continue on his home dose of Bumex at discharge. 10/13 stable and cont present home meds Candidiasis-fluconazole continued 10/12 continue at discharge and follow-up with primary care hypothyroidism-continue Synthroid Myeloma-continue atovaquone per recommendations of oncology, also continue prophylactic acyclovir Hyperlipidemia-continue Crestor gout-continue allopurinol chronic pain-continue gabapentin oxycodone BPH-continue Flomax Constipation-continue MiraLAX, added docusate twice daily Insomnia-as needed Restoril full Code ppx eliquis time 36 min Brief History: 79 yom with pmh of MM, CHF, CAD, presents with worsening shortness of breath due to covid pneumonia Diagnosis: Stroke: No Modified Karyn Scale: No Symptoms at All Modified Karyn Scale Score: 0 - Discharge Data Discharge Date: 10/13/20 Discharge Disposition: Home, Self-Care 01 Condition: Stable - Referral to Home Health Date of Face to Face Encounter: 11/08/20 Primary Care Physician: Dylan King MD - Discharge Diagnosis/Problem(s) (1) Acute respiratory failure SNOMED Code(s): 29347412 ICD Code: J96.00 - ACUTE RESPIRATORY FAILURE, UNSP W HYPOXIA OR HYPERCAPNIA Status: Acute Priority: High Current Visit: Yes Qualifiers: Respiratory failure complication: hypoxia Qualified Code(s): J96.01 - Acute respiratory failure with hypoxia (2) COVID-19 SNOMED Code(s): 540985390 ICD Code: U07.1 - COVID-19 Status: Acute Priority: High Current Visit: Yes - Patient Summary/Data Consults: Consultations 10/10/20 10:46 Consult to Occupational Therapy [OT Evaluation and Treatment] [CONS] Routine PT Evaluation and Treatment [CONS] Routine 10/10/20 15:43 Consult to Case Management/Food Service Helper [CONS] Routine Consult to Respiratory Therapy [Respiratory Care Assess and Treatment] [CONS] Routine - Patient Instructions Diet: Heart Healthy Diet, Low Sodium Fluid Restriction: 1500 mL Activity: As Tolerated Driving: May Drive Today Showering/Bathing: May Shower Notify Provider of: Fever, Increased Pain, Nausea and/or Vomiting Other/Special Instructions: worsening shortness of breath - Discharge Plan *PRESCRIPTION DRUG MONITORING PROGRAM REVIEWED*: Not Applicable *COPY OF PRESCRIPTION DRUG MONITORING REPORT IN PATIENT JING: Not Applicable Prescriptions/Med Rec: Docusate Sodium [Colace Clear] 100 mg PO DAILY #30 capsule dexAMETHasone [Dexamethasone] 6 mg PO DAILY #7 tablet Albuterol/Ipratropium [DuoNeb 3.0-0.5 MG/3 ML] 3 ml NEB Q4H PRN #30 neb PRN Reason: Shortness Of Breath/wheezing Cefdinir [Omnicef] 300 mg PO BID 5 Days #10 cap Albuterol Sulfate [Proair Respiclick] 90 mcg IH Q6H PRN #1 aer.pow.ba PRN Reason: Shortness Of Breath Zinc Sulfate [Zincate] 220 mg PO DAILY #30 cap Home Medications: Home Meds Acyclovir 400 mg PO BID 11/03/19 [History] Cholecalciferol (Vitamin D3) [Vitamin D3] 50 mcg PO DAILY 11/03/19 [History] Fluconazole [Diflucan] 400 mg PO DAILY 11/03/19 [History] Levothyroxine 125 mcg PO DAILY 11/03/19 [History] Rosuvastatin [Crestor] 10 mg PO DAILY 11/03/19 [History] Tamsulosin [Flomax] 0.4 mg PO BID 11/03/19 [History] Apixaban [Eliquis] 5 mg PO BID 10/09/20 [History] Atovaquone 10 ml PO DAILY 10/09/20 [History] Albuterol [Ventolin HFA] 1 puff INH Q4HR PRN 10/10/20 [History] Bumetanide 1 mg PO DAILY 10/10/20 [History] Gabapentin [Neurontin] 100 mg PO BID 10/10/20 [History] Polyethylene Glycol [Polyox Wsr-301] 17 gm PO BID 10/10/20 [History] allopurinoL [Zyloprim] 50 mg PO DAILY 10/10/20 [History] dexAMETHasone [Dexamethasone] 20 mg PO ASDIRECTED 10/10/20 [History] Albuterol Sulfate [Proair Respiclick] 90 mcg IH Q6H PRN #1 aer.pow.ba 10/12/20 [Rx] Albuterol/Ipratropium [DuoNeb 3.0-0.5 MG/3 ML] 3 ml NEB Q4H PRN #30 neb 10/12/20 [Rx] Cefdinir [Omnicef] 300 mg PO BID 5 Days #10 cap 10/12/20 [Rx] Docusate Sodium [Colace Clear] 100 mg PO DAILY #30 capsule 10/12/20 [Rx] Zinc Sulfate [Zincate] 220 mg PO DAILY #30 cap 10/12/20 [Rx] dexAMETHasone [Dexamethasone] 6 mg PO DAILY #7 tablet 10/12/20 [Rx] Oxygen Therapy Mode: Nasal Cannula Oxygen Flow Rate (L/min): 0.5 Maintain SPO2% less than: 92 Maintain SpO2% greater than: 88 Patient Handouts: COVID-19, Sepsis, Self Care, Adult Forms: ED Department Discharge Referrals: Dylan King MD [Primary Care Provider] - Shekhar Gutierrez MD [Ordering Only Provider] - (Follow up as needed) - Discharge Summary/Plan Comment DC Time >30 min.: Yes Total # of Minutes for Discharge Time: 36min - Patient Data Vitals - Most Recent: Last Vital Signs Temp 97.2 F 10/12/20 07:18 Pulse 78 10/12/20 07:18 Resp 18 10/12/20 07:18 BP 119/77 10/12/20 07:18 Pulse Ox 92 L 10/12/20 08:18 Weight - Most Recent: 250 lb 9.6 oz I&O - Last 24 hours: Intake & Output 10/11/20 10/12/20 10/12/20 22:59 06:59 14:59 Intake Total 900 1000 Output Total 1600 1500 Balance -700 -500 Lab Results - Last 24 hrs: Laboratory Results - last 24 hr 10/12/20 10/12/20 Range/Units 05:45 05:45 WBC 5.87 (4.23-9.07) K/mm3 RBC 4.73 (4.63-6.08) M/mm3 Hgb 14.5 (13.7-17.5) gm/dl Hct 41.9 (40.1-51.0) % MCV 88.6 (79.0-92.2) fl MCH 30.7 (25.7-32.2) pg MCHC 34.6 (32.2-35.5) g/dl RDW Std Deviation 53.1 H (35.1-43.9) fL Plt Count 97 L (163-337) K/mm3 MPV 11.0 (9.4-12.3) fl Sodium 141 (136-145) mEq/L Potassium 3.8 (3.5-5.1) mEq/L Chloride 104 (98-107) mEq/L Carbon Dioxide 25 (21-32) mEq/L Anion Gap 15.8 H (5-15) BUN 64 H (7-18) mg/dL Creatinine 2.1 H (0.7-1.3) mg/dL Est Cr Clr Drug Dosing 30.88 mL/min Estimated GFR (MDRD) 31 (>60) mL/min BUN/Creatinine Ratio 30.5 H (14-18) Glucose 316 H (70-99) mg/dL Calcium 8.1 L (8.5-10.1) mg/dL LONNY Results - Last 24 hrs: Microbiology 10/10/20 03:15 Blood Culture - Preliminary Blood - Venous - Lab Draw 10/10/20 03:10 Blood Culture - Preliminary Blood - Venous Med Orders - Current: Current Medications Acetaminophen (Acetaminophen 325 Mg Tab) 650 mg PO Q4H PRN PRN Reason: Pain (Mild 1-3)/fever Acyclovir (Acyclovir 200 Mg Cap) 400 mg PO BID [facility] Last Admin: 10/11/20 20:41 Dose: 400 mg Documented by: Albuterol (Albuterol 6.7 Gm Inhaler) 0 gm INH Q4H PRN PRN Reason: sob/wheezing Last Admin: 10/12/20 08:17 Dose: 2 inhalation Documented by: Albuterol/Ipratropium (Albuterol/Ipratropium 3.0-0.5 Mg/3 Ml Neb Soln) 3 ml NEB Q4H PRN PRN Reason: Shortness Of Breath/wheezing Allopurinol (Allopurinol 100 Mg Tab) 50 mg PO DAILY [facility] Last Admin: 10/11/20 08:14 Dose: 50 mg Documented by: Apixaban (Apixaban 5 Mg Tab) 5 mg PO BID [facility] Last Admin: 10/11/20 20:41 Dose: 5 mg Documented by: Bumetanide (Bumetanide 1 Mg Tab) 1 mg PO DAILY [facility] Last Admin: 10/11/20 08:12 Dose: 1 mg Documented by: Cholecalciferol (Cholecalciferol (Vitamin D3) 25 Mcg Tab) 50 mcg PO DAILY [facility] Last Admin: 10/11/20 08:12 Dose: 50 mcg Documented by: Dexamethasone (Dexamethasone 4 Mg Tab) 6 mg PO DAILY [facility] Stop: 10/18/20 09:01 Last Admin: 10/11/20 08:12 Dose: 6 mg Documented by: Docusate Sodium (Docusate Sodium 100 Mg Cap) 200 mg PO Q12H PRN PRN Reason: Constipation Fluconazole (Fluconazole 100 Mg Tab) 400 mg PO DAILY [facility] Last Admin: 10/11/20 08:11 Dose: 400 mg Documented by: Gabapentin (Gabapentin 100 Mg Cap) 100 mg PO BID [facility] Last Admin: 10/11/20 20:41 Dose: 100 mg Documented by: Ceftriaxone Sodium 1 gm/ (Sodium Chloride) 100 mls @ 200 mls/hr IV Q24H [facility] Last Admin: 10/12/20 05:02 Dose: 200 mls/hr Documented by: Remdesivir 100 mg/ Sodium (Chloride) 100 mls @ 100 mls/hr IV Q24H [facility] Stop: 10/14/20 09:59 Last Admin: 10/11/20 08:14 Dose: 100 mls/hr Documented by: Levothyroxine Sodium (Levothyroxine 125 Mcg Tab) 125 mcg PO ACBRK [facility] Last Admin: 10/12/20 05:04 Dose: 125 mcg Documented by: Ondansetron HCl (Ondansetron 4 Mg Tab.Dis) 4 mg PO Q4H PRN PRN Reason: nausea, able to take PO Oxycodone HCl (Oxycodone 5 Mg Tab) 5 mg PO Q4H PRN PRN Reason: Pain (moderate 4-6) Atovaquone 750 Mg/5 (Ml Oral.Susp Ptom) 0 each PO DAILY [facility] Last Admin: 10/11/20 08:26 Dose: 10 each Documented by: Polyethylene Glycol (Polyethylene Glycol 3350 Powder 17 Gm Packet) 17 gm PO BID [facility] Last Admin: 10/11/20 20:41 Dose: 17 gm Documented by: Rosuvastatin Calcium (Rosuvastatin 10 Mg Tab) 20 mg PO DAILY [facility] Last Admin: 10/11/20 08:12 Dose: 20 mg Documented by: Sodium Chloride (Sodium Chloride 0.9% 10 Ml Syringe) 10 ml FLUSH ASDIRECTED PRN PRN Reason: Keep Vein Open Last Admin: 10/09/20 20:58 Dose: 10 ml Documented by: Tamsulosin HCl (Tamsulosin 0.4 Mg Cap.Er) 0.4 mg PO DAILY [facility] Last Admin: 10/11/20 08:13 Dose: 0.4 mg Documented by: Temazepam (Temazepam 15 Mg Cap) 15 mg PO BEDTIME PRN PRN Reason: Sleep Zinc Sulfate (Zinc Sulfate 220 Mg Cap) 220 mg PO DAILY [facility] Last Admin: 10/11/20 08:12 Dose: 220 mg Documented by: Discontinued Medications Acetaminophen (Acetaminophen 325 Mg Tab) 975 mg PO NOW ONE Stop: 10/09/20 18:55 Last Admin: 10/09/20 20:58 Dose: 975 mg Documented by: Acetaminophen (Acetaminophen 325 Mg Tab) 975 mg PO Q6H PRN PRN Reason: Pain/Fever Last Admin: 10/10/20 02:47 Dose: 975 mg Documented by: Dexamethasone (Dexamethasone 10 Mg/Ml Sdv) 6 mg IVPUSH ONETIME ONE Stop: 10/09/20 18:55 Last Admin: 10/09/20 20:58 Dose: 6 mg Documented by: Docusate Sodium (Docusate Sodium 100 Mg Cap) 100 mg PO BID PRN PRN Reason: Constipation Furosemide (Furosemide 20 Mg/2 Ml Vial) 20 mg IVPUSH ONETIME ONE Stop: 10/10/20 14:56 Last Admin: 10/10/20 15:14 Dose: 20 mg Documented by: Furosemide (Furosemide 20 Mg/2 Ml Vial) 20 mg IVPUSH ONETIME ONE Stop: 10/11/20 09:01 Last Admin: 10/11/20 08:14 Dose: 20 mg Documented by: Remdesivir 100 mg/ Sodium (Chloride) 100 mls @ 100 mls/hr IV Q24H [facility] Stop: 10/13/20 13:59 Lactated Ringer's (Ringers, Lactated) 1,000 mls @ 125 mls/hr IV ASDIRECTED [facility] Last Admin: 10/10/20 05:21 Dose: 125 mls/hr Documented by: Remdesivir 200 mg/ Sodium (Chloride) 250 mls @ 250 mls/hr IV ONETIME ONE Stop: 10/10/20 09:59 Last Admin: 10/10/20 08:56 Dose: 250 mls/hr Documented by: Lactated Ringer's (Ringers, Lactated) 1,000 mls @ 75 mls/hr IV ASDIRECTED [facility] Potassium Chloride 10 meq/ (Premix) 100 mls @ 100 mls/hr IV ONETIME ONE Stop: 10/10/20 16:29 Last Admin: 10/10/20 15:14 Dose: 100 mls/hr Documented by: Ibuprofen (Ibuprofen 400 Mg Tab) 400 mg PO Q6H PRN PRN Reason: Fever Morphine Sulfate (Morphine 2 Mg/Ml Syringe) 2 mg IVPUSH Q2H PRN PRN Reason: Pain (severe 7-10) Stop: 10/11/20 07:08 Non-Formulary Medication (Metronidazole [Noritate]) 1 dose TOP BID PRN PRN Reason: Rash Atovaquone 750 Mg/5 (Ml Oral.Susp) 0 each PO DAILY [facility] Last Admin: 10/10/20 08:59 Dose: Not Given Documented by: Potassium Chloride (Potassium Chloride 20 Meq Tab.Er) 20 meq PO ONETIME ONE Stop: 10/10/20 15:01 Last Admin: 10/10/20 15:14 Dose: 20 meq Documented by:
[2020-10-12] MEDS: Fluconazole 100 MG Tab PO SCH (09:21)
[2020-10-12] MEDS: Acyclovir 200 MG Cap PO SCH ×2 (09:21→20:33)
[2020-10-12] MEDS: REMDESIVIR 100 MG in Sodium Chloride 0.9% 100 ML IV SCH (09:21)
[2020-10-12] MEDS: Bumetanide 1 MG Tab PO SCH (09:22)
[2020-10-12] MEDS: Tamsulosin 0.4 MG Cap.ER PO SCH (09:22)
[2020-10-12] MEDS: Dexamethasone 4 MG Tab PO SCH (09:22)
[2020-10-12] MEDS: Zinc Sulfate 220 MG Cap PO SCH (09:22)
[2020-10-12] MEDS: Apixaban 5 MG Tab PO SCH ×2 (09:22→20:32)
[2020-10-12] MEDS: Allopurinol 100 MG Tab PO SCH (09:22)
[2020-10-12] MEDS: Gabapentin 100 MG Cap PO SCH ×2 (09:23→20:32)
[2020-10-12] MEDS: Polyethylene Glycol 3350 Powder 17 GM Packet PO SCH ×2 (09:23→20:32)
[2020-10-12] MEDS: Rosuvastatin 10 MG Tab PO SCH (09:23)
[2020-10-12] MEDS: ATOVAQUONE 750 MG/5 ML PO SCH (09:23)
[2020-10-12] MEDS: Cholecalciferol (Vitamin D3) 25 MCG Tab PO SCH (09:23)
[2020-10-13] MEDS: Levothyroxine 125 MCG Tab PO SCH (06:12)
[2020-10-13] MEDS: cefTRIAXone 1 GM in Sodium Chloride 0.9% 100 ML IV SCH (06:12)
[2020-10-13] MEDS: Zinc Sulfate 220 MG Cap PO SCH (09:13)
[2020-10-13] MEDS: Gabapentin 100 MG Cap PO SCH (09:13)
[2020-10-13] MEDS: Cholecalciferol (Vitamin D3) 25 MCG Tab PO SCH (09:14)
[2020-10-13] MEDS: Rosuvastatin 10 MG Tab PO SCH (09:14)
[2020-10-13] MEDS: Dexamethasone 4 MG Tab PO SCH (09:14)
[2020-10-13] MEDS: Fluconazole 100 MG Tab PO SCH (09:14)
[2020-10-13] MEDS: Tamsulosin 0.4 MG Cap.ER PO SCH (09:15)
[2020-10-13] MEDS: Acyclovir 200 MG Cap PO SCH (09:15)
[2020-10-13] MEDS: Bumetanide 1 MG Tab PO SCH (09:15)
[2020-10-13] MEDS: Apixaban 5 MG Tab PO SCH (09:15)
[2020-10-13] MEDS: Polyethylene Glycol 3350 Powder 17 GM Packet PO SCH (09:15)
[2020-10-13] MEDS: Allopurinol 100 MG Tab PO SCH (09:16)
[2020-10-13] MEDS: REMDESIVIR 100 MG in Sodium Chloride 0.9% 100 ML IV SCH (09:20)
[2020-10-13] MEDS: ATOVAQUONE 750 MG/5 ML PO SCH (09:21)
--- NOTE | 2020-10-19 05:40 | PCM.EKG ---
#1 Interpretation EKG Date: 10/09/20 Time: 19:52 Rhythm: Other (Sinus tachycardia) Rate (Beats/Min): 108 [place]: LAD-Left [place] Deviation (-45 degrees) P-Wave: Enlarged (Left atrial hypertrophy) QRS: Other (Left anterior fascicular block pattern. Q waves V1 and V2 old anteroseptal myocardial infarction) ST-T: Other (Nonspecific T wave flattening aVL) QT: Normal EKG Interpretation Comments: Abnormal ECG
== END 2020-10-13 11:40 | disposition home or self-care (01) | DRG 871 ==
LOC: JD.ED 18:13 → JD.MS 20:26
PROVIDERS: ADMIT Internal Medicine; ATTEND Internal Medicine
PROC: XW033E5 Introduction of Remdesivir Anti-infective into Peripheral Vein, Percutaneous Approach, New Technology Group 5 (ICD-10-PCS; principal; 2020-10-09)
PROC: 3E0333Z Introduction of Anti-inflammatory into Peripheral Vein, Percutaneous Approach (ICD-10-PCS; 2020-10-09)
DX: A41.9 Sepsis, unspecified organism (principal); R09.02 Hypoxemia; U07.1 COVID-19; J12.82 Pneumonia due to coronavirus disease 2019; I10 Essential (primary) hypertension; G47.30 Sleep apnea, unspecified; J96.01 Acute respiratory failure with hypoxia; C90.00 Multiple myeloma not having achieved remission; N42.9 Disorder of prostate, unspecified; R65.20 Severe sepsis without septic shock; I25.10 Atherosclerotic heart disease of native coronary artery without angina pectoris; I50.9 Heart failure, unspecified; B37.9 Candidiasis, unspecified; E03.9 Hypothyroidism, unspecified; E78.5 Hyperlipidemia, unspecified; M10.9 Gout, unspecified; G89.29 Other chronic pain; N40.0 Benign prostatic hyperplasia without lower urinary tract symptoms; K59.00 Constipation, unspecified; G47.00 Insomnia, unspecified; H54.7 Unspecified visual loss; E78.00 Pure hypercholesterolemia, unspecified; I11.0 Hypertensive heart disease with heart failure; Z96.659 Presence of unspecified artificial knee joint; E66.9 Obesity, unspecified; Z98.49 Cataract extraction status, unspecified eye; Z87.891 Personal history of nicotine dependence; Z86.718 Personal history of other venous thrombosis and embolism; Z79.01 Long term (current) use of anticoagulants; Z88.1 Allergy status to other antibiotic agents; Z88.2 Allergy status to sulfonamides; Z79.890 Hormone replacement therapy; Z79.899 Other long term (current) drug therapy; Z86.711 Personal history of pulmonary embolism; Z90.49 Acquired absence of other specified parts of digestive tract; Z68.34 Body mass index [BMI] 34.0-34.9, adult
CPT/HCPCS: 36415; 71045; 71045-26; 80048; 80053; 83605; 83735; 83880; 84484; 85025; 85027; 85379; 85610; 85730; 86140; 87040; 93005; 94640; 94667; 94668; 94762; 96374; 97110-GP; 97162-GP; 97530-GP; 99285; 99285-25; A9270-GY; J0696; J1100; J1940; J3480; J7050; J7120; J8540

== ENCOUNTER 2021-01-16 12:17 | Inpatient (IN) | payer MEDICARE, BC ==
[2021-01-16] MEDS ORDERED: Albuterol/Ipratropium 3.0-0.5 MG/3 ML Neb Soln NEB STA (12:32)
[2021-01-16] MEDS ORDERED: Sodium Chloride 0.9% 10 ML Syringe FLUSH PRN (12:35)
[2021-01-16] MEDS ORDERED: Albuterol 0.083% 2.5 MG/3 ML Neb Soln NEB PRN (12:35)
[2021-01-16] MEDS ORDERED: Ondansetron 4 MG/2 ML SDV IV PRN (12:35)
--- NOTE | 2021-01-16 12:39 | PCM.HP.2 ---
H&P History of Present Illness - General Date of Service: 01/16/21 Admit Problem/Dx: Admission Diagnosis/Problem Admission Diagnosis/Problem Pneumonia Source of Information: Patient, Old Records, Provider, RN, RN Notes Reviewed History Limitations: Reports: No Limitations - History of Present Illness Initial Comments - Free Text/Narative: This is a 80-year-old male who presents to our facility today as a direct admit from [facility]. His primary complaint is shortness of breath and he is noted to be quite wheezy on admission. Patient's is at bedside. They report that patient began experiencing shortness of breath over the last 2 days. He had a fever of 103 at the clinic this morning per their report. He also has bilateral injected eyes with purulent drainage from both. Per patient this started in the left eye and has moved to both eyes. He does have a history of Covid infection and was hospitalized here from 10/09/2020 [facility] 10/13/2020. Per patient since that time he is always had some baseline shortness of breath but has not been requiring oxygen. 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 Today he followed up with hematology/oncology, as he was supposed to receive his usual infusion and they sent him here as a direct admit. Chest x-ray was obtained at their facility and shows findings consistent with pneumonia. He reportedly had an influenza a and B screen done along with Covid and all were negative. He had both of his Covid vaccinations in April 2020. He reports he recently had his Covid booster on 01/12/2021. Upon admission temperature was 99.9 Fahrenheit. Pulse was 98. Blood pressure was 144/79. Oxygen saturation was 88% on room air and he was placed on 3 L of oxygen which increased his saturations to the mid 90s. He is placed on telemetry. CBC, CMP, magnesium, blood cultures x2, CRP, sputum culture, procalcitonin, strep pneumonia, lactic acid and mycoplasma will be ordered. He appears to have bilateral conjunctivitis and is allergic to ciprofloxacin so we will start polymyxin B/trimethoprim ophthalmic solution. IV is established. We will start him on Zosyn. He is placed on droplet isolation. I-S and Acapella are ordered. As needed albuterol and DuoNeb nebulizers are ordered with first DuoNeb right now due to patient's wheezing. He caries a history of: HLD, HTN, recurrent bronchitis, sleep apnea with CPAP, prostate disorder, hypothyroidism, obesity, rosacea, vitiligo, COVID-19 PNA. He is a CPR only. His PCP is Dr. Gutierrez. - Related Data Allergies/Adverse Reactions: Allergies Allergy/AdvReac Type Severity Reaction Status Date / Time ciprofloxacin [From Cipro] Allergy Unknown Other Verified 01/16/21 13:48 Sulfa (Sulfonamide Allergy Unknown Other Verified 01/16/21 13:48 Antibiotics) Home Medications: Home Meds Acyclovir 400 mg PO BID 11/03/19 [History] Cholecalciferol (Vitamin D3) [Vitamin D3] 2,000 units PO DAILY 11/03/19 [History] Fluconazole [Diflucan] 400 mg PO DAILY 11/03/19 [History] Levothyroxine 125 mcg PO ACBREAKFAST 11/03/19 [History] Rosuvastatin [Crestor] 20 mg PO BEDTIME 11/03/19 [History] Tamsulosin [Flomax] 0.4 mg PO BID 11/03/19 [History] Apixaban [Eliquis] 5 mg PO BID 10/09/20 [History] Atovaquone 10 ml PO DAILY 10/09/20 [History] Bumetanide 1 mg PO DAILY 10/10/20 [History] Gabapentin [Neurontin] 100 mg PO BID 10/10/20 [History] Polyethylene Glycol [Polyox Wsr-301] 17 gm PO DAILY 10/10/20 [History] allopurinoL [Zyloprim] 50 mg PO DAILY 10/10/20 [History] dexAMETHasone [Dexamethasone] 20 mg PO ASDIRECTED 10/10/20 [History] Albuterol/Ipratropium [DuoNeb 3.0-0.5 MG/3 ML] 3 ml NEB Q4H PRN #30 neb 10/12/20 [Rx] Docusate Sodium [Colace Clear] 100 mg PO DAILY #30 capsule 10/12/20 [Rx] Albuterol Sulfate [Proair Respiclick] 1 puff INH Q4H PRN 01/16/21 [History] Azithromycin 250 mg PO DAILY 01/16/21 [History] Fluticasone Propion/Salmeterol [Fluticasone-Salmeterol 250-50] 1 puff INH ASDIRECTED PRN 01/16/21 [History] Glimepiride 1 mg PO DAILY 01/16/21 [History] Past Medical History HEENT History: Reports: Cataract, Impaired Vision Other HEENT History: wears eyeglasses. Cardiovascular History: Reports: High Cholesterol, Hypertension Respiratory History: Reports: None, Bronchitis, Recurrent, Sleep Apnea, Other (See Below) Other Respiratory History: wears C-PAP. Gastrointestinal History: Reports: None Genitourinary History: Reports: Prostate Disorder Musculoskeletal History: Reports: None Neurological History: Reports: None Endocrine/Metabolic History: Reports: Hypothyroidism, Obesity/BMI 30+ Hematologic History: Reports: Blood Transfusion(s) Oncologic (Cancer) History: Reports: Other (See Below) Other Oncologic History: multiple myleoma. Dermatologic History: Reports: Other (See Below) Other Dermatologic History: rosacea, vitiligo. - Infectious Disease History Infectious Disease History: Reports: Chicken Pox, Measles, Novel Coronavirus - Past Surgical History HEENT Surgical History: Reports: Cataract Surgery Cardiovascular Surgical History: Reports: None GI Surgical History: Reports: Cholecystectomy, Hernia, Inguinal, Hernia Repair/Other Endocrine Surgical History: Reports: None Musculoskeletal Surgical History: Reports: Knee Replacement Oncologic Surgical History: Reports: None Dermatological Surgical History: Reports: None - History Comment History Comment: Has had both COVID-19 vaccinations (Greysox) April 2020 Social & Family History - Family History Family Medical History: Unobtainable - Caffeine Use Caffeine Use: Reports: Coffee Other Caffeine Use: 2 cups of coffee a day - Living Situation & Occupation Living situation: Reports: , with Spouse Occupation: Retired H&P Review of Systems - Review of Systems: Review Of Systems: See Below General: Reports: Fever, Malaise, Weakness, Fatigue, Decreased Appetite. Denies: Chills HEENT: Reports: Eye Pain (Left), Other (Purulent bilateral eye drainage). Denies: Headaches, Sore Throat Pulmonary: Reports: Shortness of Breath, Wheezing, Pleuritic Chest Pain, Cough, Sputum. Denies: Hemoptysis Cardiovascular: Reports: No Symptoms, Dyspnea on Exertion, Edema (Tonic mild). Denies: Chest Pain, Palpitations, Orthopnea, Lightheadedness Gastrointestinal: Reports: Constipation (Chronic controled with medications). Denies: Abdominal Pain, Diarrhea, Nausea, Vomiting Genitourinary: Reports: No Symptoms Musculoskeletal: Reports: No Symptoms Skin: Reports: No Symptoms. Denies: Cyanosis Psychiatric: Reports: No Symptoms. Denies: Confusion Neurological: Reports: Weakness. Denies: Confusion, Dizziness, Headache, Numbness, Pre-Existing Deficit, Seizure, Syncope, Tingling, Difficulty Walking, Gait Disturbance Hematologic/Lymphatic: Reports: Other (History of multiple myeloma) Immunologic: Reports: No Symptoms Exam - Exam Exam: See Below - Exam Quality Assessment: Supplemental Oxygen (3L), DVT Prophylaxis (Chronic home Eliquis). No: Urinary Catheter General: Alert, Oriented, Cooperative, Mild Distress (Looks acutely ill) HEENT: EACs Clear, Hearing Intact (Diminished but intact), Nares Patent, Posterior Pharynx Clear. No: Conjunctiva Clear (Conjunctiva injected bilaterally with purulent discharge), Mucosa Moist & [place] (Dry) Neck: Supple, Trachea Midline Lungs: Normal Respiratory Effort, Decreased Breath Sounds, Rhonchi, Wheezing Cardiovascular: Regular Rate, Regular Rhythm GI/Abdominal Exam: Normal Bowel Sounds, Soft, Non-Tender, No Distention (Male) Exam: Deferred Rectal (Males) Exam: Deferred Back Exam: Normal Inspection, Full Range of Motion Extremities: Normal Inspection, Normal Range of Motion, Non-Tender, Normal Capillary Refill, Pedal Edema (Trace) Skin: Warm, Dry, Intact Neurological: Cranial Nerves Intact (Grossly) Neuro Extensive - Mental Status: Alert, Oriented x3 - Patient Data Result Diagrams: 01/16/21 13:04 01/16/21 13:04 - Problem List (1) Pneumonia SNOMED Code(s): 028582470 ICD Code: J18.9 - PNEUMONIA, UNSPECIFIED ORGANISM Status: Acute Priority: High Current Visit: Yes Qualifiers: Pneumonia type: due to unspecified organism Laterality: bilateral Lung location: lower lobe of lung Qualified Code(s): J18.9 - Pneumonia, unspecified organism (2) Bilateral conjunctivitis SNOMED Code(s): 8700651 ICD Code: H10.9 - UNSPECIFIED CONJUNCTIVITIS Status: Acute Priority: High Current Visit: Yes Qualifiers: Conjunctivitis type: acute Acute conjunctivitis type: bacterial Qualified Code(s): H10.33 - Unspecified acute conjunctivitis, bilateral (3) History of pulmonary embolus (PE) SNOMED Code(s): 277439913 ICD Code: Z86.711 - PERSONAL HISTORY OF PULMONARY EMBOLISM Status: Chronic Priority: Medium Current Visit: No (4) Acute respiratory failure SNOMED Code(s): 49231181 ICD Code: J96.00 - ACUTE RESPIRATORY FAILURE, UNSP W HYPOXIA OR HYPERCAPNIA Status: Acute Priority: High Current Visit: Yes Qualifiers: Respiratory failure complication: hypoxia Qualified Code(s): J96.01 - Acute respiratory failure with hypoxia (5) Chronic anticoagulation SNOMED Code(s): 550712303 ICD Code: Z79.01 - NUCLEAR MEDICINE PHYSICIAN (CURRENT) USE OF ANTICOAGULANTS Status: Chronic Priority: Medium Current Visit: Yes (6) Hypoxia SNOMED Code(s): 222728897 ICD Code: R09.02 - HYPOXEMIA Status: Acute Priority: High Current Visit: Yes (7) History of multiple myeloma SNOMED Code(s): 578165867653940 ICD Code: Z85.79 - PRSNL HX OF MALIG NEOPLM OF LYMPHOID, HEMATPOETC & REL TISS Status: Chronic Priority: Medium Current Visit: No (8) HTN (hypertension) SNOMED Code(s): 08372019 ICD Code: I10 - ESSENTIAL (PRIMARY) HYPERTENSION Status: Chronic Priority: Medium Current Visit: No Qualifiers: Hypertension type: unspecified Qualified Code(s): I10 - Essential (primary) hypertension (9) HLD (hyperlipidemia) SNOMED Code(s): 30711074 ICD Code: E78.5 - HYPERLIPIDEMIA, UNSPECIFIED Status: Chronic Priority: Low Current Visit: No Qualifiers: Hyperlipidemia type: unspecified Qualified Code(s): E78.5 - Hyperlipidemia, unspecified (10) Obstructive sleep apnea on CPAP SNOMED Code(s): 08286831 ICD Code: G47.33 - OBSTRUCTIVE SLEEP APNEA (ADULT) (PEDIATRIC); Z99.89 - DEPENDENCE ON OTHER ENABLING MACHINES AND DEVICES Status: Chronic Priority: Medium Current Visit: Yes (11) Prostate disorder SNOMED Code(s): 14410778 ICD Code: N42.9 - DISORDER OF PROSTATE, UNSPECIFIED Status: Chronic Priority: Low Current Visit: No (12) Hypothyroidism SNOMED Code(s): 32052652 ICD Code: E03.9 - HYPOTHYROIDISM, UNSPECIFIED Status: Chronic Priority: Low Current Visit: No Qualifiers: Hypothyroidism type: unspecified Qualified Code(s): E03.9 - Hypothyroidism, unspecified (13) Obesity SNOMED Code(s): 764928542, 368931389 ICD Code: E66.9 - OBESITY, UNSPECIFIED Status: Chronic Priority: Low Current Visit: No Qualifiers: Obesity type: unspecified obesity type Obesity classification: unspecified obesity classification Serious obesity comorbidity presence: without serious comorbidity Qualified Code(s): E66.9 - Obesity, unspecified (14) Rosacea SNOMED Code(s): 990867507 ICD Code: L71.9 - ROSACEA, UNSPECIFIED Status: Chronic Priority: Low Current Visit: No (15) Vitiligo SNOMED Code(s): 43416060 ICD Code: L80 - VITILIGO Status: Chronic Priority: Low Current Visit: No (16) Personal history of COVID-19 SNOMED Code(s): 529338141951182281, 311539997301247582 ICD Code: Z86.16 - PERSONAL HISTORY OF COVID-19 Status: Chronic Priority: Low Current Visit: No (17) Chronic constipation SNOMED Code(s): 223041102 ICD Code: K59.09 - OTHER CONSTIPATION Status: Chronic Priority: Low Current Visit: Yes (18) Pedal edema SNOMED Code(s): 150618490 ICD Code: R60.0 - LOCALIZED EDEMA Status: Chronic Priority: Low Current Visit: Yes (19) Hypokalemia SNOMED Code(s): 26012472 ICD Code: E87.6 - HYPOKALEMIA Status: Acute Priority: High Current Visit: Yes (20) CKD (chronic kidney disease) SNOMED Code(s): 550983046 ICD Code: N18.9 - CHRONIC KIDNEY DISEASE, UNSPECIFIED Status: Chronic Priority: Medium Current Visit: Yes Qualifiers: Chronic kidney disease stage: stage 3 (moderate) Chronic kidney disease stage 3 subtype: stage 3b (GFR 30-44) Qualified Code(s): N18.32 - Chronic kidney disease, stage 3b Problem List Initiated/Reviewed/Updated: Yes Orders Last 24hrs: Active Orders 24 hr Category Date Time Status Patient Status [ADT] Routine ADT 01/16/21 12:21 Active Cardiac Monitoring [RC] CONTINUOUS Care 01/16/21 12:35 Active Height and Weight [RC] DAILY Care 01/16/21 12:35 Active Intake and Output [RC] DAILY Care 01/16/21 12:35 Active Oxygen Therapy [RC] ASDIRECTED Care 01/16/21 12:35 Active Peripheral IV Care [RC] . DIRECTED Care 01/16/21 12:35 Active Pulse Oximetry [RC] PRN Care 01/16/21 12:35 Active RT Aerosol Therapy [RC] ASDIRECTED Care 01/16/21 12:33 Active RT Aerosol Therapy [RC] ASDIRECTED Care 01/16/21 12:36 Active Up With Assistance [RC] ASDIRECTED Care 01/16/21 12:35 Active Vital Signs [RC] Q6H Care 01/16/21 12:35 Active Consult to Case Management/Etcher Hand [CONS] Cons 01/16/21 12:35 Active Routine OT Evaluation and Treatment [CONS] Routine Cons 01/16/21 12:37 Active PT Evaluation and Treatment [CONS] Routine Cons 01/16/21 12:37 Active Respiratory Care Assess and Treatment [CONS] Routine Cons 01/16/21 12:37 Active Chest 2V [CR] Routine Exams 01/16/21 12:35 Ordered BLOOD CULTURE [MREF] Stat Lab 01/16/21 12:33 Ordered BLOOD CULTURE [MREF] Stat Lab 01/16/21 12:33 Ordered C-REACTIVE PROTEIN [CHEM] Stat Lab 01/16/21 12:33 Ordered CBC WITH AUTO DIFF [HEME] Stat Lab 01/16/21 12:33 Ordered COMPREHENSIVE METABOLIC PN,CMP [CHEM] Stat Lab 01/16/21 12:33 Ordered INFLUENZA A+B AG SCREEN [RM] Stat Lab 01/16/21 12:33 Ordered MAGNESIUM [CHEM] Stat Lab 01/16/21 12:33 Ordered MYCOPLASMA PNEUMONIAE IGM AB [CHEM] Stat Lab 01/16/21 12:33 Ordered PROCALCITONIN [REF] Stat Lab 01/16/21 12:33 Ordered STREP PNEUMONIAE ANTIGEN [MREF] Stat Lab 01/16/21 12:33 Ordered Acetaminophen [TylenoL] Med 01/16/21 12:35 Ordered 650 mg PO Q4H PRN Albuterol [Proventil Neb Soln] Med 01/16/21 12:35 Ordered 2.5 mg NEB Q2H PRN Albuterol/Ipratropium [DuoNeb 3.0-0.5 MG/3 ML] Med 01/16/21 12:35 Ordered 3 ml NEB QIDRT PRN Docusate Sodium/Sennosides [Senna Plus] Med 01/16/21 12:35 Ordered 1 tab PO BID PRN Ondansetron [Zofran] Med 01/16/21 12:35 Ordered 4 mg IV Q6H PRN Sodium Chloride 0.9% [Saline Flush] Med 01/16/21 12:35 Active 10 ml FLUSH ASDIRECTED PRN Blood Culture x2 Reflex Set [OM.PC] Stat Oth 01/16/21 12:33 Ordered Isolation [COMM] Routine Oth 01/16/21 12:34 Ordered Peripheral IV Insertion Adult [OM.PC] Routine Oth 01/16/21 12:35 Ordered Medication Orders Acetaminophen (Acetaminophen 325 Mg Tab) 650 mg PO Q4H PRN PRN Reason: Pain (Mild 1-3)/fever Albuterol (Albuterol 0.083% 2.5 Mg/3 Ml Neb Soln) 2.5 mg NEB Q2H PRN PRN Reason: Shortness Of Breath/wheezing Albuterol/Ipratropium (Albuterol/Ipratropium 3.0-0.5 Mg/3 Ml Neb Soln) 3 ml NEB QIDRT PRN PRN Reason: Shortness Of Breath/wheezing Ondansetron HCl (Ondansetron 4 Mg/2 Ml Sdv) 4 mg IV Q6H PRN PRN Reason: Nausea/Vomiting Senna/Docusate Sodium (Docusate Sodium/Sennosides 50-8.6 Mg Tab) 1 tab PO BID PRN PRN Reason: Constipation Sodium Chloride (Sodium Chloride 0.9% 10 Ml Syringe) 10 ml FLUSH ASDIRECTED PRN PRN Reason: Keep Vein Open Assessment/Plan Comment:: Pneumonia Personal history of COVID-19 Acute respiratory failure Hypoxia Obstructive sleep apnea on CPAP * Obtain blood cultures x2 * Obtain procalcitonin * Check mycoplasma and strep pneumo * Sputum culture pending * Start IV fluids at 100 mils an hour * Zosyn every 8 hours * O2 as needed to keep saturations above 90% * CPAP when napping or sleeping * As needed albuterol neb * As needed DuoNeb * I-S/Acapella * Consult respiratory therapy * PT/OT evaluation * Case management/social work consultation * Home respiratory medications as ordered Bilateral conjunctivitis * Start polymyxin B/trimethoprim ophthalmic solution 1 drop bilaterally every 4 hour * Warm compresses to eyes BID and as needed Hypokalemia * Supplement * Monitor labs CKD * IV fluids as ordered * Appears to be at baseline based on prior labs * Avoid nephrotoxic meds if able History of pulmonary embolus (PE) Chronic anticoagulation * Continue home Eliquis * No acute concerns History of multiple myeloma * No acute concerns * Hold home meds HTN (hypertension) * No acute concerns * Continue home medications HLD (hyperlipidemia) * No acute concerns * Hold home statin for now Prostate disorder * No acute concerns * Continue home Flomax Hypothyroidism * No acute concerns * Continue home levothyroxine Obesity * No acute concerns * Consider dietitian consultation Rosacea Vitiligo * No acute concerns Chronic constipation * No acute concerns * Continue home scheduled laxatives/stool softeners * PRN laxatives/stool softeners Pedal Edema - chronic * No acute concerns * AMANDA ndiaye * Elevated extremities whenever possible Code Status: CPR only PCP: Dr. Gutierrez Oncology/Hematology: Dr. Gutierrez DVT prophylaxis: Home Eliquis Disposition: Patient admitted to the floor on telemetry for management of his pneumonia and bilateral conjunctivitis. Length of stay likely 3 to 4 days. - Mortality Measure Prognosis:: Good
[2021-01-16] MEDS ORDERED: Piperacillin/Tazobactam 4.5 GM in Sodium Chloride 0.9% 100 ML IV ONE (13:30)
[2021-01-16] MEDS ORDERED: Sodium Chloride 0.9% 1,000 ML IV SCH (13:45)
[2021-01-16] MEDS: Polymyxin B/Trimethoprim 10 ML Bottle EYEBOTH SCH ×3 (14:00→21:42)
[2021-01-16] MEDS ORDERED: Magnesium Oxide 400 MG Tab PO ONE (14:30)
[2021-01-16] MEDS ORDERED: Potassium Chloride 20 MEQ Tab.ER PO ONE (14:30)
[2021-01-16] MEDS ORDERED: Azithromycin 500 MG in Sodium Chloride 0.9% 250 ML IV ONE (14:30)
[2021-01-16] MEDS: Acetaminophen 325 MG Tab PO PRN ×2 (15:48→20:17)
[2021-01-16] MEDS: Albuterol/Ipratropium 3.0-0.5 MG/3 ML Neb Soln NEB PRN (17:47)
[2021-01-16] MEDS: Formoterol/Mometasone 200-5 MCG 8.8 GM Inhaler IH SCH (20:07)
[2021-01-16] MEDS: Apixaban 5 MG Tab PO SCH (20:18)
[2021-01-16] MEDS: Gabapentin 100 MG Cap PO SCH (20:18)
[2021-01-16] MEDS: Tamsulosin 0.4 MG Cap.ER PO SCH (20:18)
[2021-01-16] MEDS: Piperacillin/Tazobactam 4.5 GM in Sodium Chloride 0.9% 100 ML IV SCH (21:42)
[2021-01-17] MEDS: Polymyxin B/Trimethoprim 10 ML Bottle EYEBOTH SCH ×6 (02:24→21:20)
[2021-01-17] MEDS: Piperacillin/Tazobactam 4.5 GM in Sodium Chloride 0.9% 100 ML IV SCH ×3 (05:11→21:21)
[2021-01-17] MEDS: Levothyroxine 125 MCG Tab PO SCH (05:13)
--- NOTE | 2021-01-17 06:59 | PCM.PN ---
<Tom Velázquez - Last Filed: 01/17/21 11:34> - General Info Date of Service: 01/17/21 Admission Dx/Problem (Free Text): Admission Diagnosis/Problem Admission Diagnosis/Problem Pneumonia Functional Status: Reports: Pain Controlled, Tolerating Diet, Ambulating, Urinating, Incentive Spirometry, Other (Acapella ). Denies: New Symptoms - Review of Systems General: Reports: No Symptoms, Weakness (improving ). Denies: Fever, Fatigue, Malaise, Chills HEENT: Reports: No Symptoms. Denies: Headaches, Sore Throat Pulmonary: Reports: Shortness of Breath (improving ), Cough (improved ), Wheezing. Denies: Pleuritic Chest Pain, Sputum Cardiovascular: Reports: Dyspnea on Exertion (improving ). Denies: Chest Pain, Palpitations, Edema Gastrointestinal: Reports: No Symptoms. Denies: Abdominal Pain, Constipation, Diarrhea, Nausea, Vomiting Genitourinary: Reports: No Symptoms. Denies: Pain Musculoskeletal: Reports: No Symptoms Skin: Reports: No Symptoms. Denies: Cyanosis Neurological: Reports: Difficulty Walking, Weakness. Denies: Confusion, Dizziness, Headache, Numbness, Pre-Existing Deficit, Seizure, Syncope, Tingling, Gait Disturbance Psychiatric: Reports: No Symptoms - Patient Data Vitals - Most Recent: Last Vital Signs Temp 98.8 F 01/17/21 02:10 Pulse 78 01/17/21 02:10 Resp 19 01/17/21 02:10 BP 112/68 01/17/21 02:10 Pulse Ox 92 L 01/17/21 02:10 Weight - Most Recent: 253 lb 1.6 oz I&O - Last 24 Hours: Intake & Output 01/16/21 01/16/21 01/17/21 14:59 22:59 06:59 Intake Total 750 625 Output Total 1100 Balance 750 -475 Lab Results Last 24 Hours: Laboratory Results - last 24 hr 01/16/21 01/16/21 01/16/21 Range/Units 13:04 13:04 13:04 WBC 10.38 H (4.23-9.07) K/mm3 RBC 4.53 L (4.63-6.08) M/mm3 Hgb 14.8 (13.7-17.5) gm/dl Hct 44.7 (40.1-51.0) % MCV 98.7 H D (79.0-92.2) fl MCH 32.7 H (25.7-32.2) pg MCHC 33.1 (32.2-35.5) g/dl RDW Std Deviation 53.3 H (35.1-43.9) fL Plt Count 98 L (163-337) K/mm3 MPV 10.7 (9.4-12.3) fl Neut % (Auto) 84.4 H (34.0-67.9) % Lymph % (Auto) 8.8 L (21.8-53.1) % [place] % (Auto) 6.1 (5.3-12.2) % Eos % (Auto) 0.4 L (0.8-7.0) Baso % (Auto) 0.0 L (0.1-1.2) % Neut # (Auto) 8.77 H (1.78-5.38) K/mm3 Lymph # (Auto) 0.91 L (1.32-3.57) K/mm3 [place] # (Auto) 0.63 (0.30-0.82) K/mm3 Eos # (Auto) 0.04 (0.04-0.54) K/mm3 Baso # (Auto) 0.00 L (0.01-0.08) K/mm3 Manual Slide Review Abnormal smear Sodium 141 (136-145) mEq/L Potassium 3.1 L (3.5-5.1) mEq/L Chloride 103 (98-107) mEq/L Carbon Dioxide 28 (21-32) mEq/L Anion Gap 13.1 (5-15) BUN 39 H D (7-18) mg/dL Creatinine 2.0 H (0.7-1.3) mg/dL Est Cr Clr Drug Dosing 31.90 mL/min Estimated GFR (MDRD) 32 (>60) mL/min BUN/Creatinine Ratio 19.5 H (14-18) Glucose 73 (70-99) mg/dL Lactic Acid 1.4 (0.4-2.0) mmol/L Calcium 8.7 (8.5-10.1) mg/dL Magnesium 1.9 (1.8-2.4) mg/dL Total Bilirubin 2.8 H (0.2-1.0) mg/dL AST 27 (15-37) U/L ALT 28 (16-63) U/L Alkaline Phosphatase 61 (46-116) U/L C-Reactive Protein 26.5 H* (<1.0) mg/dL Total Protein 5.9 L (6.4-8.2) g/dl Albumin 2.8 L (3.4-5.0) g/dl Globulin 3.1 gm/dL Albumin/Globulin Ratio 0.9 L (1-2) Mycoplasma pneumon IgM Cancelled 01/17/21 Range/Units 05:25 WBC 8.71 (4.23-9.07) K/mm3 RBC 4.03 L (4.63-6.08) M/mm3 Hgb 13.3 L D (13.7-17.5) gm/dl Hct 40.1 (40.1-51.0) % MCV 99.5 H (79.0-92.2) fl MCH 33.0 H (25.7-32.2) pg MCHC 33.2 (32.2-35.5) g/dl RDW Std Deviation 53.5 H (35.1-43.9) fL Plt Count 96 L (163-337) K/mm3 MPV 10.4 (9.4-12.3) fl Neut % (Auto) 86.5 H (34.0-67.9) % Lymph % (Auto) 6.7 L (21.8-53.1) % [place] % (Auto) 5.6 (5.3-12.2) % Eos % (Auto) 0.9 (0.8-7.0) Baso % (Auto) 0.0 L (0.1-1.2) % Neut # (Auto) 7.53 H (1.78-5.38) K/mm3 Lymph # (Auto) 0.58 L (1.32-3.57) K/mm3 [place] # (Auto) 0.49 (0.30-0.82) K/mm3 Eos # (Auto) 0.08 (0.04-0.54) K/mm3 Baso # (Auto) 0.00 L (0.01-0.08) K/mm3 Manual Slide Review Sodium (136-145) mEq/L Potassium (3.5-5.1) mEq/L Chloride (98-107) mEq/L Carbon Dioxide (21-32) mEq/L Anion Gap (5-15) BUN (7-18) mg/dL Creatinine (0.7-1.3) mg/dL Est Cr Clr Drug Dosing mL/min Estimated GFR (MDRD) (>60) mL/min BUN/Creatinine Ratio (14-18) Glucose (70-99) mg/dL Lactic Acid (0.4-2.0) mmol/L Calcium (8.5-10.1) mg/dL Magnesium (1.8-2.4) mg/dL Total Bilirubin (0.2-1.0) mg/dL AST (15-37) U/L ALT (16-63) U/L Alkaline Phosphatase (46-116) U/L C-Reactive Protein (<1.0) mg/dL Total Protein (6.4-8.2) g/dl Albumin (3.4-5.0) g/dl Globulin gm/dL Albumin/Globulin Ratio (1-2) Mycoplasma pneumon IgM Med Orders - Current: Current Medications Acetaminophen (Acetaminophen 325 Mg Tab) 650 mg PO Q4H PRN PRN Reason: Pain (Mild 1-3)/fever Last Admin: 01/16/21 20:17 Dose: 650 mg Documented by: Albuterol (Albuterol 0.083% 2.5 Mg/3 Ml Neb Soln) 2.5 mg NEB Q2H PRN PRN Reason: Shortness Of Breath/wheezing Albuterol/Ipratropium (Albuterol/Ipratropium 3.0-0.5 Mg/3 Ml Neb Soln) 3 ml NEB QIDRT PRN PRN Reason: Shortness Of Breath/wheezing Last Admin: 01/16/21 17:47 Dose: 3 ml Documented by: Allopurinol (Allopurinol 100 Mg Tab) 50 mg PO DAILY [facility] Apixaban (Apixaban 5 Mg Tab) 5 mg PO BID [facility] Last Admin: 01/16/21 20:18 Dose: 5 mg Documented by: Cholecalciferol (Cholecalciferol (Vitamin D3) 25 Mcg Tab) 50 mcg PO DAILY [facility] Docusate Sodium (Docusate Sodium 100 Mg Cap) 100 mg PO DAILY [facility] Gabapentin (Gabapentin 100 Mg Cap) 100 mg PO BID [facility] Last Admin: 01/16/21 20:18 Dose: 100 mg Documented by: Piperacillin Sod/Tazobactam (Sod 4.5 gm/ Sodium Chloride) 100 mls @ 25 mls/hr IV Q8H [facility] Last Admin: 01/17/21 05:11 Dose: 25 mls/hr Documented by: Azithromycin 500 mg/ Sodium (Chloride) 250 mls @ 250 mls/hr IV Q24H [facility] Levothyroxine Sodium (Levothyroxine 125 Mcg Tab) 125 mcg PO ACBREAKFAST [facility] Last Admin: 01/17/21 05:13 Dose: 125 mcg Documented by: Mometasone Furoate/Formoterol Fumar (Formoterol/Mometasone 200-5 Mcg 8.8 Gm Inhaler) 2 puff IH BID [facility] Last Admin: 01/16/21 20:07 Dose: 2 puff Documented by: Ondansetron HCl (Ondansetron 4 Mg/2 Ml Sdv) 4 mg IV Q6H PRN PRN Reason: Nausea/Vomiting Polyethylene Glycol (Polyethylene Glycol 3350 Powder 17 Gm Packet) 17 gm PO DAILY [facility] Polymyxin/Trimethoprim Sulfate (Polymyxin B/Trimethoprim 10 Ml Bottle) 0 ml EYEBOTH Q4H [facility] Last Admin: 01/17/21 05:13 Dose: 1 drop Documented by: Senna/Docusate Sodium (Docusate Sodium/Sennosides 50-8.6 Mg Tab) 1 tab PO BID PRN PRN Reason: Constipation Sodium Chloride (Sodium Chloride 0.9% 10 Ml Syringe) 10 ml FLUSH ASDIRECTED PRN PRN Reason: Keep Vein Open Tamsulosin HCl (Tamsulosin 0.4 Mg Cap.Er) 0.4 mg PO BID [facility] Last Admin: 01/16/21 20:18 Dose: 0.4 mg Documented by: Discontinued Medications Albuterol/Ipratropium (Albuterol/Ipratropium 3.0-0.5 Mg/3 Ml Neb Soln) 3 ml NEB ONETIME STA Stop: 01/16/21 12:33 Last Admin: 01/16/21 12:46 Dose: 3 ml Documented by: Piperacillin Sod/Tazobactam (Sod 4.5 gm/ Sodium Chloride) 100 mls @ 200 mls/hr IV ONETIME ONE Stop: 01/16/21 13:59 Last Admin: 01/16/21 13:55 Dose: 200 mls/hr Documented by: Sodium Chloride (Normal Saline) 1,000 mls @ 100 mls/hr IV ASDIRECTED SARAH Stop: 01/16/21 23:44 Last Admin: 01/16/21 14:52 Dose: 100 mls/hr Documented by: Azithromycin 500 mg/ Sodium (Chloride) 250 mls @ 250 mls/hr IV ONETIME ONE Stop: 01/16/21 15:29 Last Admin: 01/16/21 14:52 Dose: 250 mls/hr Documented by: Magnesium Oxide (Magnesium Oxide 400 Mg Tab) 400 mg PO ONETIME ONE Stop: 01/16/21 14:31 Last Admin: 01/16/21 14:51 Dose: 400 mg Documented by: Potassium Chloride (Potassium Chloride 20 Meq Tab.Er) 40 meq PO ONETIME ONE Stop: 01/16/21 14:31 Last Admin: 01/16/21 14:51 Dose: 40 meq Documented by: - Exam Quality Assessment: DVT Prophylaxis. No: Supplemental Oxygen, Urine Catheter General: Alert, Oriented, Cooperative, No Acute Distress HEENT: Pupils Equal, Pupils Reactive, Mucous Membr. Moist/[place] Neck: Supple, Trachea Midline Lungs: Normal Respiratory Effort, Decreased Breath Sounds, Rhonchi Cardiovascular: Regular Rate, Regular Rhythm GI/Abdominal Exam: Normal Bowel Sounds, Soft, Non-Tender, No Distention (Male) Exam: Deferred Back Exam: Normal Inspection, Full Range of Motion Extremities: Normal Inspection, Normal Range of Motion, Non-Tender, Normal Capillary Refill, Pedal Edema (2+ right, 1+ on left), Other (Bilateral lower extremity discolorations consistent with peripheral vascular disease) Skin: Warm, Dry, Intact Neurological: No New Focal Deficit Psy/Mental Status: Alert, Normal Affect, Normal Mood - Patient Data Lab Results Last 24 hrs: Laboratory Results - last 24 hr 01/16/21 01/16/21 01/16/21 Range/Units 13:04 13:04 13:04 WBC 10.38 H (4.23-9.07) K/mm3 RBC 4.53 L (4.63-6.08) M/mm3 Hgb 14.8 (13.7-17.5) gm/dl Hct 44.7 (40.1-51.0) % MCV 98.7 H D (79.0-92.2) fl MCH 32.7 H (25.7-32.2) pg MCHC 33.1 (32.2-35.5) g/dl RDW Std Deviation 53.3 H (35.1-43.9) fL Plt Count 98 L (163-337) K/mm3 MPV 10.7 (9.4-12.3) fl Neut % (Auto) 84.4 H (34.0-67.9) % Lymph % (Auto) 8.8 L (21.8-53.1) % [place] % (Auto) 6.1 (5.3-12.2) % Eos % (Auto) 0.4 L (0.8-7.0) Baso % (Auto) 0.0 L (0.1-1.2) % Neut # (Auto) 8.77 H (1.78-5.38) K/mm3 Lymph # (Auto) 0.91 L (1.32-3.57) K/mm3 [place] # (Auto) 0.63 (0.30-0.82) K/mm3 Eos # (Auto) 0.04 (0.04-0.54) K/mm3 Baso # (Auto) 0.00 L (0.01-0.08) K/mm3 Manual Slide Review Abnormal smear Sodium 141 (136-145) mEq/L Potassium 3.1 L (3.5-5.1) mEq/L Chloride 103 (98-107) mEq/L Carbon Dioxide 28 (21-32) mEq/L Anion Gap 13.1 (5-15) BUN 39 H D (7-18) mg/dL Creatinine 2.0 H (0.7-1.3) mg/dL Est Cr Clr Drug Dosing 31.90 mL/min Estimated GFR (MDRD) 32 (>60) mL/min BUN/Creatinine Ratio 19.5 H (14-18) Glucose 73 (70-99) mg/dL Lactic Acid 1.4 (0.4-2.0) mmol/L Calcium 8.7 (8.5-10.1) mg/dL Magnesium 1.9 (1.8-2.4) mg/dL Total Bilirubin 2.8 H (0.2-1.0) mg/dL AST 27 (15-37) U/L ALT 28 (16-63) U/L Alkaline Phosphatase 61 (46-116) U/L C-Reactive Protein 26.5 H* (<1.0) mg/dL Total Protein 5.9 L (6.4-8.2) g/dl Albumin 2.8 L (3.4-5.0) g/dl Globulin 3.1 gm/dL Albumin/Globulin Ratio 0.9 L (1-2) Mycoplasma pneumon IgM Cancelled 01/17/21 Range/Units 05:25 WBC 8.71 (4.23-9.07) K/mm3 RBC 4.03 L (4.63-6.08) M/mm3 Hgb 13.3 L D (13.7-17.5) gm/dl Hct 40.1 (40.1-51.0) % MCV 99.5 H (79.0-92.2) fl MCH 33.0 H (25.7-32.2) pg MCHC 33.2 (32.2-35.5) g/dl RDW Std Deviation 53.5 H (35.1-43.9) fL Plt Count 96 L (163-337) K/mm3 MPV 10.4 (9.4-12.3) fl Neut % (Auto) 86.5 H (34.0-67.9) % Lymph % (Auto) 6.7 L (21.8-53.1) % [place] % (Auto) 5.6 (5.3-12.2) % Eos % (Auto) 0.9 (0.8-7.0) Baso % (Auto) 0.0 L (0.1-1.2) % Neut # (Auto) 7.53 H (1.78-5.38) K/mm3 Lymph # (Auto) 0.58 L (1.32-3.57) K/mm3 [place] # (Auto) 0.49 (0.30-0.82) K/mm3 Eos # (Auto) 0.08 (0.04-0.54) K/mm3 Baso # (Auto) 0.00 L (0.01-0.08) K/mm3 Manual Slide Review Sodium (136-145) mEq/L Potassium (3.5-5.1) mEq/L Chloride (98-107) mEq/L Carbon Dioxide (21-32) mEq/L Anion Gap (5-15) BUN (7-18) mg/dL Creatinine (0.7-1.3) mg/dL Est Cr Clr Drug Dosing mL/min Estimated GFR (MDRD) (>60) mL/min BUN/Creatinine Ratio (14-18) Glucose (70-99) mg/dL Lactic Acid (0.4-2.0) mmol/L Calcium (8.5-10.1) mg/dL Magnesium (1.8-2.4) mg/dL Total Bilirubin (0.2-1.0) mg/dL AST (15-37) U/L ALT (16-63) U/L Alkaline Phosphatase (46-116) U/L C-Reactive Protein (<1.0) mg/dL Total Protein (6.4-8.2) g/dl Albumin (3.4-5.0) g/dl Globulin gm/dL Albumin/Globulin Ratio (1-2) Mycoplasma pneumon IgM Result Diagrams: 01/17/21 05:25 01/17/21 05:25 Sepsis Event Note - Evaluation Sepsis Screening Result: Severe Sepsis Risk - Focused Exam Vital Signs: Vital Signs Temp Temp Pulse Resp BP Pulse Ox Pulse Ox 01/17/21 02:10 98.8 F 78 19 112/68 92 L 01/16/21 22:37 98.4 F 01/16/21 21:44 101.8 F H 99 92 L 01/16/21 21:40 101.9 F H 01/16/21 20:47 101.9 F H 01/16/21 20:17 101.3 F H 01/16/21 20:14 94 L 01/16/21 20:13 101.3 F H 88 24 H 111/56 L 94 L 01/16/21 20:08 96 - Problem List & Annotations (1) Pneumonia SNOMED Code(s): 750676362 Code(s): J18.9 - PNEUMONIA, UNSPECIFIED ORGANISM Status: Acute Priority: High Current Visit: Yes Qualifiers: Pneumonia type: due to unspecified organism Laterality: bilateral Lung location: lower lobe of lung Qualified Code(s): J18.9 - Pneumonia, unspecified organism (2) Bilateral conjunctivitis SNOMED Code(s): 9496461 Code(s): H10.9 - UNSPECIFIED CONJUNCTIVITIS Status: Acute Priority: High Current Visit: Yes Qualifiers: Conjunctivitis type: acute Acute conjunctivitis type: bacterial Qualified Code(s): H10.33 - Unspecified acute conjunctivitis, bilateral (3) History of pulmonary embolus (PE) SNOMED Code(s): 638787994 Code(s): Z86.711 - PERSONAL HISTORY OF PULMONARY EMBOLISM Status: Chronic Priority: Medium Current Visit: No (4) Acute respiratory failure SNOMED Code(s): 51681620 Code(s): J96.00 - ACUTE RESPIRATORY FAILURE, UNSP W HYPOXIA OR HYPERCAPNIA Status: Acute Priority: High Current Visit: Yes Qualifiers: Respiratory failure complication: hypoxia Qualified Code(s): J96.01 - Acute respiratory failure with hypoxia (5) Chronic anticoagulation SNOMED Code(s): 173616709 Code(s): Z79.01 - CORRECTION (CURRENT) USE OF ANTICOAGULANTS Status: Chronic Priority: Medium Current Visit: Yes (6) Hypoxia SNOMED Code(s): 285836799 Code(s): R09.02 - HYPOXEMIA Status: Acute Priority: High Current Visit: Yes (7) History of multiple myeloma SNOMED Code(s): 835412128691631 Code(s): Z85.79 - PRSNL HX OF MALIG NEOPLM OF LYMPHOID, HEMATPOETC & REL TISS Status: Chronic Priority: Medium Current Visit: No (8) HTN (hypertension) SNOMED Code(s): 50272474 Code(s): I10 - ESSENTIAL (PRIMARY) HYPERTENSION Status: Chronic Priority: Medium Current Visit: No Qualifiers: Hypertension type: unspecified Qualified Code(s): I10 - Essential (primary) hypertension (9) HLD (hyperlipidemia) SNOMED Code(s): 66539493 Code(s): E78.5 - HYPERLIPIDEMIA, UNSPECIFIED Status: Chronic Priority: Low Current Visit: No Qualifiers: Hyperlipidemia type: unspecified Qualified Code(s): E78.5 - Hyperlipidemia, unspecified (10) Obstructive sleep apnea on CPAP SNOMED Code(s): 35990910 Code(s): G47.33 - OBSTRUCTIVE SLEEP APNEA (ADULT) (PEDIATRIC); Z99.89 - DEPENDENCE ON OTHER ENABLING MACHINES AND DEVICES Status: Chronic Priority: Medium Current Visit: Yes (11) Prostate disorder SNOMED Code(s): 02812060 Code(s): N42.9 - DISORDER OF PROSTATE, UNSPECIFIED Status: Chronic Priority: Low Current Visit: No (12) Hypothyroidism SNOMED Code(s): 79928950 Code(s): E03.9 - HYPOTHYROIDISM, UNSPECIFIED Status: Chronic Priority: Low Current Visit: No Qualifiers: Hypothyroidism type: unspecified Qualified Code(s): E03.9 - Hypothyroidism, unspecified (13) Obesity SNOMED Code(s): 895708086, 776868291 Code(s): E66.9 - OBESITY, UNSPECIFIED Status: Chronic Priority: Low Current Visit: No Qualifiers: Obesity type: unspecified obesity type Obesity classification: unspecified obesity classification Serious obesity comorbidity presence: without serious comorbidity Qualified Code(s): E66.9 - Obesity, unspecified (14) Rosacea SNOMED Code(s): 148325055 Code(s): L71.9 - ROSACEA, UNSPECIFIED Status: Chronic Priority: Low Current Visit: No (15) Vitiligo SNOMED Code(s): 43597060 Code(s): L80 - VITILIGO Status: Chronic Priority: Low Current Visit: No (16) Personal history of COVID-19 SNOMED Code(s): 926838928010848517, 977105447161231351 Code(s): Z86.16 - PERSONAL HISTORY OF COVID-19 Status: Chronic Priority: Low Current Visit: No (17) Chronic constipation SNOMED Code(s): 845322391 Code(s): K59.09 - OTHER CONSTIPATION Status: Chronic Priority: Low Current Visit: Yes (18) Pedal edema SNOMED Code(s): 108938562 Code(s): R60.0 - LOCALIZED EDEMA Status: Chronic Priority: Low Current Visit: Yes (19) Hypokalemia SNOMED Code(s): 05248528 Code(s): E87.6 - HYPOKALEMIA Status: Acute Priority: High Current Visit: Yes (20) CKD (chronic kidney disease) SNOMED Code(s): 739241631 Code(s): N18.9 - CHRONIC KIDNEY DISEASE, UNSPECIFIED Status: Chronic Priority: Medium Current Visit: Yes Qualifiers: Chronic kidney disease stage: stage 3 (moderate) Chronic kidney disease stage 3 subtype: stage 3b (GFR 30-44) Qualified Code(s): N18.32 - Chronic kidney disease, stage 3b - Problem List Review Problem List Initiated/Reviewed/Updated: Yes - My Orders Last 24 Hours: My Active Orders 01/16/21 12:33 STREP PNEUMONIAE ANTIGEN [MREF] Stat Blood Culture x2 Reflex Set [OM.PC] Stat 01/16/21 12:34 Isolation [COMM] Routine 01/16/21 12:35 Cardiac Monitoring [RC] CONTINUOUS Height and Weight [RC] 06 Intake and Output [RC] 04,16 Oxygen Therapy [RC] ASDIRECTED Peripheral IV Care [RC] Q4HR Pulse Oximetry [RC] PRN Up With Assistance [RC] ASDIRECTED Vital Signs [RC] 03,09,15,21 Consult to Case Management/Master Electrician [CONS] Routine Acetaminophen [TylenoL] 650 mg PO Q4H PRN Albuterol [Proventil Neb Soln] 2.5 mg NEB Q2H PRN Albuterol/Ipratropium [DuoNeb 3.0-0.5 MG/3 ML] 3 ml NEB QIDRT PRN Docusate Sodium/Sennosides [Senna Plus] 1 tab PO BID PRN Ondansetron [Zofran] 4 mg IV Q6H PRN Sodium Chloride 0.9% [Saline Flush] 10 ml FLUSH ASDIRECTED PRN Peripheral IV Insertion Adult [OM.PC] Routine 01/16/21 12:36 RT Aerosol Therapy [RC] ASDIRECTED 01/16/21 12:37 OT Evaluation and Treatment [CONS] Routine PT Evaluation and Treatment [CONS] Routine Respiratory Care Assess and Treatment [CONS] Routine 01/16/21 13:04 BLOOD CULTURE [MREF] Stat MISC TEST Stat PROCALCITONIN [REF] Stat 01/16/21 13:11 BLOOD CULTURE [MREF] Stat 01/16/21 13:13 RT Incentive Spirometry [RC] Q2HWA RT Acapella [RESPCARE] Routine 01/16/21 13:23 Code Status [Resuscitation Status] Routine 01/16/21 13:24 CPAP Noctural Home [RT BiPAP/CPAP] [RC] ASDIRECTED 01/16/21 13:30 Polymyxin B/Trimethoprim [PolyTrim Ophth Soln] 0 ml EYEBOTH Q4H 01/16/21 13:35 Communication Order [RC] BID 01/16/21 13:45 Antiembolic Devices [RC] QSHIFT AMANDA Hose [Antiembolic Hose] [OM.PC] Routine 01/16/21 Dinner Regular Diet [DIET] 01/16/21 17:40 MISCELLANEOUS CULT [MREF] Routine 01/16/21 21:00 Apixaban [Eliquis] 5 mg PO BID Gabapentin [Neurontin] 100 mg PO BID Mometasone/Formoterol [Dulera 200-5 MCG] 2 puff IH BID Tamsulosin [Flomax] 0.4 mg PO BID 01/16/21 22:00 Piperacillin/Tazobactam [Piperacil-Tazobact] 4.5 gm Sodium Chloride 0.9% [Normal Saline AdvBag] 100 ml IV Q8H 01/17/21 05:25 CBC WITH AUTO DIFF [HEME] AM CMP [COMPREHENSIVE METABOLIC PN,CMP] [CHEM] AM CRP [C-REACTIVE PROTEIN] [CHEM] AM 01/17/21 06:00 Levothyroxine 125 mcg PO ACBREAKFAST 01/17/21 09:00 Cholecalciferol (Vitamin D3) [Vitamin D3] 50 mcg PO DAILY Docusate Sodium [Colace] 100 mg PO DAILY allopurinoL [Zyloprim] 50 mg PO DAILY polyethylene glycoL 3350 [MiraLAX] 17 gm PO DAILY 01/17/21 13:00 Azithromycin [Zithromax] 500 mg Sodium Chloride 0.9% [Normal Saline AdvBag] 250 ml IV Q24H 01/18/21 05:11 CBC WITH AUTO DIFF [HEME] AM CMP [COMPREHENSIVE METABOLIC PN,CMP] [CHEM] AM CRP [C-REACTIVE PROTEIN] [CHEM] AM 01/19/21 05:11 CBC WITH AUTO DIFF [HEME] AM CMP [COMPREHENSIVE METABOLIC PN,CMP] [CHEM] AM CRP [C-REACTIVE PROTEIN] [CHEM] AM 01/20/21 05:11 CBC WITH AUTO DIFF [HEME] AM CMP [COMPREHENSIVE METABOLIC PN,CMP] [CHEM] AM CRP [C-REACTIVE PROTEIN] [CHEM] AM - Assessment Assessment:: 01/17/2021 This is a 80-year-old male with a history of multiple myeloma admitted to the floor on telemetry for management of bilateral pneumonia. Met SIRS criteria but not sepsis. Mycoplasma, strep pneumonia, blood cultures x2, sputum culture, and procalcitonin are all still pending. Patient remains on Zosyn every 8 hours and overall clinically looks much better today. He states he feels better as well. He has had less purulent drainage from his eyes and his conjunctivitis appears to be improving. Labs today show WBC of 8.71. Hemoglobin is 13.3. Platelet 96,000. Neutrophils are elevated 86.5%. Sodium is 143. Potassium 3.4 and this will be supplemented. Chloride 106. Carbon dioxide 26. Anion gap is 14.4. BUN is 37. Creatinine is 2.2. GFR is 29. Glucose is 86. Calcium is 7.9. Total bilirubin 2.1. AST is 22, ALT 26, alkaline phosphatase 56. CRP is 35.1. Protein is 4.6. Albumin is 2.4. We will give him some IV fluids today. He otherwise continues to improve. We will continue Zosyn pending outstanding lab results. Likely discharge in 2-3 more days. - Plan Plan:: Pneumonia Personal history of COVID-19 Acute respiratory failure Hypoxia Obstructive sleep apnea on CPAP * Meets SIRS criteria but not sepsis due to no end organ failure * Blood cultures x2 pending * Procalcitonin pending * Mycoplasma and strep pneumo pending * Sputum culture pending * IV fluids at 100 mils an hour * Zosyn every 8 hours * O2 as needed to keep saturations above 90% * CPAP when napping or sleeping * As needed albuterol neb * As needed DuoNeb * I-S/Acapella * Consult respiratory therapy * PT/OT evaluation * Case management/social work consultation * Home respiratory medications as ordered Bilateral conjunctivitis * Polymyxin B/trimethoprim ophthalmic solution 1 drop bilaterally every 4 hour * Warm compresses to eyes BID and as needed Hypokalemia * Supplement * Monitor labs CKD * IV fluids as ordered * Appears to be at baseline based on prior labs * Avoid nephrotoxic meds if able History of pulmonary embolus (PE) Chronic anticoagulation * Continue home Eliquis * No acute concerns History of multiple myeloma * No acute concerns * Hold home meds HTN (hypertension) * No acute concerns * Continue home medications HLD (hyperlipidemia) * No acute concerns * Hold home statin for now 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 Gutierrez Oncology/Hematology: Dr. Gutierrez DVT prophylaxis: Home Eliquis Disposition: Patient admitted to the floor on telemetry for management of his pneumonia and bilateral conjunctivitis. Length of stay likely 3 to 4 days. <Josiah Murrell Jr - Last Filed: 01/17/21 20:02> - Patient Data Vitals - Most Recent: Last Vital Signs Temp 100.8 F H 01/17/21 17:43 Pulse 93 01/17/21 17:43 Resp 18 01/17/21 17:43 BP 111/68 01/17/21 17:43 Pulse Ox 94 L 01/17/21 17:43 I&O - Last 24 Hours: Intake & Output 01/17/21 01/17/21 01/17/21 06:59 14:59 22:59 Intake Total 440 346 5172 Output Total 1100 400 Balance -427 840 2458 Lab Results Last 24 Hours: Laboratory Results - last 24 hr 01/16/21 01/17/21 01/17/21 Range/Units 13:04 05:25 05:25 WBC 8.71 (4.23-9.07) K/mm3 RBC 4.03 L (4.63-6.08) M/mm3 Hgb 13.3 L D (13.7-17.5) gm/dl Hct 40.1 (40.1-51.0) % MCV 99.5 H (79.0-92.2) fl MCH 33.0 H (25.7-32.2) pg MCHC 33.2 (32.2-35.5) g/dl RDW Std Deviation 53.5 H (35.1-43.9) fL Plt Count 96 L (163-337) K/mm3 MPV 10.4 (9.4-12.3) fl Neut % (Auto) 86.5 H (34.0-67.9) % Lymph % (Auto) 6.7 L (21.8-53.1) % [place] % (Auto) 5.6 (5.3-12.2) % Eos % (Auto) 0.9 (0.8-7.0) Baso % (Auto) 0.0 L (0.1-1.2) % Neut # (Auto) 7.53 H (1.78-5.38) K/mm3 Lymph # (Auto) 0.58 L (1.32-3.57) K/mm3 [place] # (Auto) 0.49 (0.30-0.82) K/mm3 Eos # (Auto) 0.08 (0.04-0.54) K/mm3 Baso # (Auto) 0.00 L (0.01-0.08) K/mm3 Manual Slide Review Abnormal smear Sodium 143 (136-145) mEq/L Potassium 3.4 L (3.5-5.1) mEq/L Chloride 106 (98-107) mEq/L Carbon Dioxide 26 (21-32) mEq/L Anion Gap 14.4 (5-15) BUN 37 H (7-18) mg/dL Creatinine 2.2 H (0.7-1.3) mg/dL Est Cr Clr Drug Dosing 29.00 mL/min Estimated GFR (MDRD) 29 (>60) mL/min BUN/Creatinine Ratio 16.8 (14-18) Glucose 86 (70-99) mg/dL Calcium 7.9 L (8.5-10.1) mg/dL Total Bilirubin 2.1 H (0.2-1.0) mg/dL AST 22 (15-37) U/L ALT 26 (16-63) U/L Alkaline Phosphatase 56 (46-116) U/L C-Reactive Protein 35.1 H* (<1.0) mg/dL Total Protein 4.6 L (6.4-8.2) g/dl Albumin 2.4 L (3.4-5.0) g/dl Globulin 2.2 gm/dL Albumin/Globulin Ratio 1.1 (1-2) Procalcitonin 1.08 H ng/mL Med Orders - Current: Current Medications Acetaminophen (Acetaminophen 325 Mg Tab) 650 mg PO Q4H PRN PRN Reason: Pain (Mild 1-3)/fever Last Admin: 01/17/21 17:01 Dose: 650 mg Documented by: Albuterol (Albuterol 0.083% 2.5 Mg/3 Ml Neb Soln) 2.5 mg NEB Q2H PRN PRN Reason: Shortness Of Breath/wheezing Albuterol/Ipratropium (Albuterol/Ipratropium 3.0-0.5 Mg/3 Ml Neb Soln) 3 ml NEB QIDRT PRN PRN Reason: Shortness Of Breath/wheezing Last Admin: 01/17/21 14:48 Dose: 3 ml Documented by: Allopurinol (Allopurinol 100 Mg Tab) 50 mg PO DAILY [facility] Last Admin: 01/17/21 09:19 Dose: 50 mg Documented by: Apixaban (Apixaban 5 Mg Tab) 5 mg PO BID [facility] Last Admin: 01/17/21 09:21 Dose: 5 mg Documented by: Cholecalciferol (Cholecalciferol (Vitamin D3) 25 Mcg Tab) 50 mcg PO DAILY [facility] Last Admin: 01/17/21 09:18 Dose: 50 mcg Documented by: Docusate Sodium (Docusate Sodium 100 Mg Cap) 100 mg PO DAILY [facility] Last Admin: 01/17/21 09:20 Dose: 100 mg Documented by: Gabapentin (Gabapentin 100 Mg Cap) 100 mg PO BID [facility] Last Admin: 01/17/21 09:20 Dose: 100 mg Documented by: Piperacillin Sod/Tazobactam (Sod 4.5 gm/ Sodium Chloride) 100 mls @ 25 mls/hr IV Q8H [facility] Last Admin: 01/17/21 15:39 Dose: 25 mls/hr Documented by: Azithromycin 500 mg/ Sodium (Chloride) 250 mls @ 250 mls/hr IV Q24H [facility] Last Admin: 01/17/21 14:27 Dose: 250 mls/hr Documented by: Lactated Ringer's (Ringers, Lactated) 1,000 mls @ 100 mls/hr IV ASDIRECTED [facility] Stop: 01/18/21 18:29 Last Admin: 01/17/21 10:22 Dose: 100 mls/hr Documented by: Levothyroxine Sodium (Levothyroxine 125 Mcg Tab) 125 mcg PO ACBREAKFAST [facility] Last Admin: 01/17/21 05:13 Dose: 125 mcg Documented by: Mometasone Furoate/Formoterol Fumar (Formoterol/Mometasone 200-5 Mcg 8.8 Gm Inhaler) 2 puff IH BID [facility] Last Admin: 01/17/21 08:24 Dose: 2 puff Documented by: Ondansetron HCl (Ondansetron 4 Mg/2 Ml Sdv) 4 mg IV Q6H PRN PRN Reason: Nausea/Vomiting Polyethylene Glycol (Polyethylene Glycol 3350 Powder 17 Gm Packet) 17 gm PO DAILY [facility] Last Admin: 01/17/21 09:22 Dose: Not Given Documented by: Polymyxin/Trimethoprim Sulfate (Polymyxin B/Trimethoprim 10 Ml Bottle) 0 ml EYEBOTH Q4H [facility] Last Admin: 01/17/21 16:39 Dose: 1 drop Documented by: Potassium Chloride (Potassium Chloride 20 Meq Tab.Er) 40 meq PO BID [facility] Stop: 01/17/21 21:01 Last Admin: 01/17/21 09:19 Dose: 40 meq Documented by: Senna/Docusate Sodium (Docusate Sodium/Sennosides 50-8.6 Mg Tab) 1 tab PO BID PRN PRN Reason: Constipation Sodium Chloride (Sodium Chloride 0.9% 10 Ml Syringe) 10 ml FLUSH ASDIRECTED PRN PRN Reason: Keep Vein Open Tamsulosin HCl (Tamsulosin 0.4 Mg Cap.Er) 0.4 mg PO BID [facility] Last Admin: 01/17/21 09:19 Dose: 0.4 mg Documented by: Discontinued Medications Albuterol/Ipratropium (Albuterol/Ipratropium 3.0-0.5 Mg/3 Ml Neb Soln) 3 ml NEB ONETIME STA Stop: 01/16/21 12:33 Last Admin: 01/16/21 12:46 Dose: 3 ml Documented by: Piperacillin Sod/Tazobactam (Sod 4.5 gm/ Sodium Chloride) 100 mls @ 200 mls/hr IV ONETIME ONE Stop: 01/16/21 13:59 Last Admin: 01/16/21 13:55 Dose: 200 mls/hr Documented by: Sodium Chloride (Normal Saline) 1,000 mls @ 100 mls/hr IV ASDIRECTED [facility] Stop: 01/16/21 23:44 Last Admin: 01/16/21 14:52 Dose: 100 mls/hr Documented by: Azithromycin 500 mg/ Sodium (Chloride) 250 mls @ 250 mls/hr IV ONETIME ONE Stop: 01/16/21 15:29 Last Admin: 01/16/21 14:52 Dose: 250 mls/hr Documented by: Magnesium Oxide (Magnesium Oxide 400 Mg Tab) 400 mg PO ONETIME ONE Stop: 01/16/21 14:31 Last Admin: 01/16/21 14:51 Dose: 400 mg Documented by: Potassium Chloride (Potassium Chloride 20 Meq Tab.Er) 40 meq PO ONETIME ONE Stop: 01/16/21 14:31 Last Admin: 01/16/21 14:51 Dose: 40 meq Documented by: - Patient Data Lab Results Last 24 hrs: Laboratory Results - last 24 hr 01/16/21 01/17/21 01/17/21 Range/Units 13:04 05:25 05:25 WBC 8.71 (4.23-9.07) K/mm3 RBC 4.03 L (4.63-6.08) M/mm3 Hgb 13.3 L D (13.7-17.5) gm/dl Hct 40.1 (40.1-51.0) % MCV 99.5 H (79.0-92.2) fl MCH 33.0 H (25.7-32.2) pg MCHC 33.2 (32.2-35.5) g/dl RDW Std Deviation 53.5 H (35.1-43.9) fL Plt Count 96 L (163-337) K/mm3 MPV 10.4 (9.4-12.3) fl Neut % (Auto) 86.5 H (34.0-67.9) % Lymph % (Auto) 6.7 L (21.8-53.1) % [place] % (Auto) 5.6 (5.3-12.2) % Eos % (Auto) 0.9 (0.8-7.0) Baso % (Auto) 0.0 L (0.1-1.2) % Neut # (Auto) 7.53 H (1.78-5.38) K/mm3 Lymph # (Auto) 0.58 L (1.32-3.57) K/mm3 [place] # (Auto) 0.49 (0.30-0.82) K/mm3 Eos # (Auto) 0.08 (0.04-0.54) K/mm3 Baso # (Auto) 0.00 L (0.01-0.08) K/mm3 Manual Slide Review Abnormal smear Sodium 143 (136-145) mEq/L Potassium 3.4 L (3.5-5.1) mEq/L Chloride 106 (98-107) mEq/L Carbon Dioxide 26 (21-32) mEq/L Anion Gap 14.4 (5-15) BUN 37 H (7-18) mg/dL Creatinine 2.2 H (0.7-1.3) mg/dL Est Cr Clr Drug Dosing 29.00 mL/min Estimated GFR (MDRD) 29 (>60) mL/min BUN/Creatinine Ratio 16.8 (14-18) Glucose 86 (70-99) mg/dL Calcium 7.9 L (8.5-10.1) mg/dL Total Bilirubin 2.1 H (0.2-1.0) mg/dL AST 22 (15-37) U/L ALT 26 (16-63) U/L Alkaline Phosphatase 56 (46-116) U/L C-Reactive Protein 35.1 H* (<1.0) mg/dL Total Protein 4.6 L (6.4-8.2) g/dl Albumin 2.4 L (3.4-5.0) g/dl Globulin 2.2 gm/dL Albumin/Globulin Ratio 1.1 (1-2) Procalcitonin 1.08 H ng/mL Result Diagrams: 01/17/21 05:25 01/17/21 05:25 Sepsis Event Note - Focused Exam Vital Signs: Vital Signs Temp Pulse Resp BP Pulse Ox Pulse Ox 01/17/21 17:43 100.8 F H 93 18 111/68 94 L 01/17/21 17:31 100.8 F H 01/17/21 17:01 102.8 F H 01/17/21 16:52 102.7 F H 92 16 124/74 95 01/17/21 15:01 100.0 F 93 22 H 110/62 94 L 01/17/21 14:48 94 L 01/17/21 12:14 100.0 F 82 22 H 119/68 94 L 01/17/21 09:20 94 97/65 90 L 01/17/21 09:19 98.8 F 87 16 111/90 91 L 01/17/21 08:31 91 L 01/17/21 08:25 91 L - Plan Plan:: Case discussed in full. Agree with evaluation, assessment and plan. -Jv Hopkins Jr.
[2021-01-17] MEDS: Formoterol/Mometasone 200-5 MCG 8.8 GM Inhaler IH SCH ×2 (08:24→20:21)
[2021-01-17] MEDS: Cholecalciferol (Vitamin D3) 25 MCG Tab PO SCH (09:18)
[2021-01-17] MEDS: Allopurinol 100 MG Tab PO SCH (09:19)
[2021-01-17] MEDS: Tamsulosin 0.4 MG Cap.ER PO SCH ×2 (09:19→20:05)
[2021-01-17] MEDS: Potassium Chloride 20 MEQ Tab.ER PO SCH ×2 (09:19→20:04)
[2021-01-17] MEDS: Gabapentin 100 MG Cap PO SCH ×2 (09:20→20:05)
[2021-01-17] MEDS: Docusate Sodium 100 MG Cap PO SCH (09:20)
[2021-01-17] MEDS: Apixaban 5 MG Tab PO SCH ×2 (09:21→20:05)
[2021-01-17] MEDS: Polyethylene Glycol 3350 Powder 17 GM Packet PO SCH (09:22)
[2021-01-17] MEDS: Lactated Ringers 1,000 ML IV SCH ×2 (10:22→21:00)
[2021-01-17] MEDS: Azithromycin 500 MG in Sodium Chloride 0.9% 250 ML IV SCH (14:27)
[2021-01-17] MEDS: Albuterol/Ipratropium 3.0-0.5 MG/3 ML Neb Soln NEB PRN (14:48)
[2021-01-17] MEDS: Acetaminophen 325 MG Tab PO PRN (17:01)
[2021-01-18] MEDS: Polymyxin B/Trimethoprim 10 ML Bottle EYEBOTH SCH ×6 (02:21→21:15)
[2021-01-18] MEDS: Piperacillin/Tazobactam 4.5 GM in Sodium Chloride 0.9% 100 ML IV SCH ×3 (05:31→22:27)
[2021-01-18] MEDS: Levothyroxine 125 MCG Tab PO SCH (05:31)
[2021-01-18] MEDS ORDERED: Potassium Chloride 20 MEQ Tab.ER PO ONE ×3 (07:06→09:30)
--- NOTE | 2021-01-18 07:07 | PCM.PN ---
<Tom Velázquez - Last Filed: 01/18/21 09:14> - General Info Date of Service: 01/18/21 Admission Dx/Problem (Free Text): Admission Diagnosis/Problem Admission Diagnosis/Problem Pneumonia Functional Status: Reports: Pain Controlled, Tolerating Diet, Ambulating, Urinating, Incentive Spirometry, Other (Acapella ). Denies: New Symptoms - Review of Systems General: Reports: Weakness (improving ). Denies: Fever, Fatigue, Malaise, Chills HEENT: Reports: Other (Minimal eye discharge which is improving bilaterally). Denies: Headaches, Sore Throat Pulmonary: Reports: Cough, Sputum (improving ), Wheezing. Denies: Shortness of Breath, Pleuritic Chest Pain, Other Cardiovascular: Reports: Dyspnea on Exertion, Edema (chronic ). Denies: Chest Pain, Palpitations Gastrointestinal: Reports: No Symptoms. Denies: Abdominal Pain, Constipation, Diarrhea, Nausea, Vomiting Genitourinary: Reports: No Symptoms. Denies: Pain Musculoskeletal: Reports: No Symptoms Skin: Reports: No Symptoms. Denies: Cyanosis Neurological: Reports: No Symptoms. Denies: Confusion, Dizziness, Headache, Numbness, Pre-Existing Deficit, Seizure, Syncope, Tingling, Difficulty Walking, Gait Disturbance Psychiatric: Reports: No Symptoms - Patient Data Vitals - Most Recent: Last Vital Signs Temp 98.6 F 01/18/21 04:34 Pulse 74 01/18/21 04:34 Resp 22 H 01/18/21 04:34 BP 101/73 01/18/21 04:34 Pulse Ox 92 L 01/18/21 04:34 Weight - Most Recent: 259 lb 12.8 oz I&O - Last 24 Hours: Intake & Output 01/17/21 01/18/21 01/18/21 22:59 06:59 14:59 Intake Total 1475 1645 Output Total 400 1600 Balance 1075 45 Lab Results Last 24 Hours: Laboratory Results - last 24 hr 01/16/21 01/17/21 01/17/21 Range/Units 13:04 05:25 05:25 WBC (4.23-9.07) K/mm3 RBC (4.63-6.08) M/mm3 Hgb (13.7-17.5) gm/dl Hct (40.1-51.0) % MCV (79.0-92.2) fl MCH (25.7-32.2) pg MCHC (32.2-35.5) g/dl RDW Std Deviation (35.1-43.9) fL Plt Count (163-337) K/mm3 MPV (9.4-12.3) fl Neut % (Auto) (34.0-67.9) % Lymph % (Auto) (21.8-53.1) % [place] % (Auto) (5.3-12.2) % Eos % (Auto) (0.8-7.0) Baso % (Auto) (0.1-1.2) % Neut # (Auto) (1.78-5.38) K/mm3 Lymph # (Auto) (1.32-3.57) K/mm3 [place] # (Auto) (0.30-0.82) K/mm3 Eos # (Auto) (0.04-0.54) K/mm3 Baso # (Auto) (0.01-0.08) K/mm3 Manual Slide Review Abnormal smear Sodium 143 (136-145) mEq/L Potassium 3.4 L (3.5-5.1) mEq/L Chloride 106 (98-107) mEq/L Carbon Dioxide 26 (21-32) mEq/L Anion Gap 14.4 (5-15) BUN 37 H (7-18) mg/dL Creatinine 2.2 H (0.7-1.3) mg/dL Est Cr Clr Drug Dosing 29.00 mL/min Estimated GFR (MDRD) 29 (>60) mL/min BUN/Creatinine Ratio 16.8 (14-18) Glucose 86 (70-99) mg/dL Calcium 7.9 L (8.5-10.1) mg/dL Magnesium (1.8-2.4) mg/dL Total Bilirubin 2.1 H (0.2-1.0) mg/dL AST 22 (15-37) U/L ALT 26 (16-63) U/L Alkaline Phosphatase 56 (46-116) U/L C-Reactive Protein 35.1 H* (<1.0) mg/dL Total Protein 4.6 L (6.4-8.2) g/dl Albumin 2.4 L (3.4-5.0) g/dl Globulin 2.2 gm/dL Albumin/Globulin Ratio 1.1 (1-2) Procalcitonin 1.08 H ng/mL 01/18/21 01/18/21 Range/Units 05:06 05:06 WBC 7.64 (4.23-9.07) K/mm3 RBC 3.78 L (4.63-6.08) M/mm3 Hgb 12.4 L (13.7-17.5) gm/dl Hct 37.6 L (40.1-51.0) % MCV 99.5 H (79.0-92.2) fl MCH 32.8 H (25.7-32.2) pg MCHC 33.0 (32.2-35.5) g/dl RDW Std Deviation 53.4 H (35.1-43.9) fL Plt Count 100 L (163-337) K/mm3 MPV 10.2 (9.4-12.3) fl Neut % (Auto) 84.6 H (34.0-67.9) % Lymph % (Auto) 6.7 L (21.8-53.1) % [place] % (Auto) 7.2 (5.3-12.2) % Eos % (Auto) 1.2 (0.8-7.0) Baso % (Auto) 0.0 L (0.1-1.2) % Neut # (Auto) 6.47 H (1.78-5.38) K/mm3 Lymph # (Auto) 0.51 L (1.32-3.57) K/mm3 [place] # (Auto) 0.55 (0.30-0.82) K/mm3 Eos # (Auto) 0.09 (0.04-0.54) K/mm3 Baso # (Auto) 0.00 L (0.01-0.08) K/mm3 Manual Slide Review Sodium 143 (136-145) mEq/L Potassium 3.8 (3.5-5.1) mEq/L Chloride 107 (98-107) mEq/L Carbon Dioxide 26 (21-32) mEq/L Anion Gap 13.8 (5-15) BUN 35 H (7-18) mg/dL Creatinine 2.2 H (0.7-1.3) mg/dL Est Cr Clr Drug Dosing 29.00 mL/min Estimated GFR (MDRD) 29 (>60) mL/min BUN/Creatinine Ratio 15.9 (14-18) Glucose 100 H (70-99) mg/dL Calcium 7.7 L (8.5-10.1) mg/dL Magnesium 2.1 (1.8-2.4) mg/dL Total Bilirubin 1.2 H (0.2-1.0) mg/dL AST 33 (15-37) U/L ALT 29 (16-63) U/L Alkaline Phosphatase 64 (46-116) U/L C-Reactive Protein 28.2 H* (<1.0) mg/dL Total Protein 4.5 L (6.4-8.2) g/dl Albumin 2.2 L (3.4-5.0) g/dl Globulin 2.3 gm/dL Albumin/Globulin Ratio 1.0 (1-2) Procalcitonin ng/mL Florian Results Last 24 Hours: Microbiology 01/17/21 08:45 Streptococcus pneumoniae Antigen (M - Final Urine Med Orders - Current: Current Medications Acetaminophen (Acetaminophen 325 Mg Tab) 650 mg PO Q4H PRN PRN Reason: Pain (Mild 1-3)/fever Last Admin: 01/17/21 17:01 Dose: 650 mg Documented by: Albuterol (Albuterol 0.083% 2.5 Mg/3 Ml Neb Soln) 2.5 mg NEB Q2H PRN PRN Reason: Shortness Of Breath/wheezing Albuterol/Ipratropium (Albuterol/Ipratropium 3.0-0.5 Mg/3 Ml Neb Soln) 3 ml NEB QIDRT PRN PRN Reason: Shortness Of Breath/wheezing Last Admin: 01/17/21 14:48 Dose: 3 ml Documented by: Allopurinol (Allopurinol 100 Mg Tab) 50 mg PO DAILY [facility] Last Admin: 01/17/21 09:19 Dose: 50 mg Documented by: Apixaban (Apixaban 5 Mg Tab) 5 mg PO BID [facility] Last Admin: 01/17/21 20:05 Dose: 5 mg Documented by: Cholecalciferol (Cholecalciferol (Vitamin D3) 25 Mcg Tab) 50 mcg PO DAILY [facility] Last Admin: 01/17/21 09:18 Dose: 50 mcg Documented by: Docusate Sodium (Docusate Sodium 100 Mg Cap) 100 mg PO DAILY [facility] Last Admin: 01/17/21 09:20 Dose: 100 mg Documented by: Gabapentin (Gabapentin 100 Mg Cap) 100 mg PO BID [facility] Last Admin: 01/17/21 20:05 Dose: 100 mg Documented by: Piperacillin Sod/Tazobactam (Sod 4.5 gm/ Sodium Chloride) 100 mls @ 25 mls/hr IV Q8H [facility] Last Admin: 01/18/21 05:31 Dose: 25 mls/hr Documented by: Azithromycin 500 mg/ Sodium (Chloride) 250 mls @ 250 mls/hr IV Q24H [facility] Last Admin: 01/17/21 14:27 Dose: 250 mls/hr Documented by: Levothyroxine Sodium (Levothyroxine 125 Mcg Tab) 125 mcg PO ACBREAKFAST [facility] Last Admin: 01/18/21 05:31 Dose: 125 mcg Documented by: Mometasone Furoate/Formoterol Fumar (Formoterol/Mometasone 200-5 Mcg 8.8 Gm Inhaler) 2 puff IH BID [facility] Last Admin: 01/17/21 20:21 Dose: 2 puff Documented by: Ondansetron HCl (Ondansetron 4 Mg/2 Ml Sdv) 4 mg IV Q6H PRN PRN Reason: Nausea/Vomiting Polyethylene Glycol (Polyethylene Glycol 3350 Powder 17 Gm Packet) 17 gm PO DAILY [facility] Last Admin: 01/17/21 09:22 Dose: Not Given Documented by: Polymyxin/Trimethoprim Sulfate (Polymyxin B/Trimethoprim 10 Ml Bottle) 0 ml EYEBOTH Q4H [facility] Last Admin: 01/18/21 05:31 Dose: 1 drop Documented by: Potassium Chloride (Potassium Chloride 20 Meq Tab.Er) 40 meq PO ONETIME ONE Stop: 01/18/21 07:07 Senna/Docusate Sodium (Docusate Sodium/Sennosides 50-8.6 Mg Tab) 1 tab PO BID PRN PRN Reason: Constipation Sodium Chloride (Sodium Chloride 0.9% 10 Ml Syringe) 10 ml FLUSH ASDIRECTED PRN PRN Reason: Keep Vein Open Tamsulosin HCl (Tamsulosin 0.4 Mg Cap.Er) 0.4 mg PO BID [facility] Last Admin: 01/17/21 20:05 Dose: 0.4 mg Documented by: Discontinued Medications Albuterol/Ipratropium (Albuterol/Ipratropium 3.0-0.5 Mg/3 Ml Neb Soln) 3 ml NEB ONETIME STA Stop: 01/16/21 12:33 Last Admin: 01/16/21 12:46 Dose: 3 ml Documented by: Piperacillin Sod/Tazobactam (Sod 4.5 gm/ Sodium Chloride) 100 mls @ 200 mls/hr IV ONETIME ONE Stop: 01/16/21 13:59 Last Admin: 01/16/21 13:55 Dose: 200 mls/hr Documented by: Sodium Chloride (Normal Saline) 1,000 mls @ 100 mls/hr IV ASDIRECTED SARAH Stop: 01/16/21 23:44 Last Admin: 01/16/21 14:52 Dose: 100 mls/hr Documented by: Azithromycin 500 mg/ Sodium (Chloride) 250 mls @ 250 mls/hr IV ONETIME ONE Stop: 01/16/21 15:29 Last Admin: 01/16/21 14:52 Dose: 250 mls/hr Documented by: Lactated Ringer's (Ringers, Lactated) 1,000 mls @ 100 mls/hr IV ASDIRECTED SARAH Stop: 01/18/21 18:29 Last Admin: 01/17/21 21:00 Dose: 100 mls/hr Documented by: Magnesium Oxide (Magnesium Oxide 400 Mg Tab) 400 mg PO ONETIME ONE Stop: 01/16/21 14:31 Last Admin: 01/16/21 14:51 Dose: 400 mg Documented by: Potassium Chloride (Potassium Chloride 20 Meq Tab.Er) 40 meq PO ONETIME ONE Stop: 01/16/21 14:31 Last Admin: 01/16/21 14:51 Dose: 40 meq Documented by: Potassium Chloride (Potassium Chloride 20 Meq Tab.Er) 40 meq PO BID SARAH Stop: 01/17/21 21:01 Last Admin: 01/17/21 20:04 Dose: 40 meq Documented by: - Exam Quality Assessment: DVT Prophylaxis. No: Supplemental Oxygen, Urine Catheter General: Alert, Oriented, Cooperative, No Acute Distress HEENT: Pupils Equal, Pupils Reactive, Mucous Membr. Moist/[place], Other (Improving scleral injection bilaterally. Minimal purulent eye discharge which is improving.) Neck: Supple, Trachea Midline Lungs: Normal Respiratory Effort, Decreased Breath Sounds, Rhonchi. No: Wheezing Cardiovascular: Regular Rate, Regular Rhythm GI/Abdominal Exam: Normal Bowel Sounds, Soft, Non-Tender, No Distention (Male) Exam: Deferred Back Exam: Normal Inspection, Full Range of Motion Extremities: Normal Inspection, Normal Range of Motion, Non-Tender, Normal Capillary Refill, Pedal Edema (1+ bilaterally), Other (Bilateral lower extremity discoloration consistent with peripheral vascular disease.) Skin: Warm, Dry, Intact Neurological: No New Focal Deficit Psy/Mental Status: Alert, Normal Affect, Normal Mood - Patient Data Lab Results Last 24 hrs: Laboratory Results - last 24 hr 01/16/21 01/17/21 01/17/21 Range/Units 13:04 05:25 05:25 WBC (4.23-9.07) K/mm3 RBC (4.63-6.08) M/mm3 Hgb (13.7-17.5) gm/dl Hct (40.1-51.0) % MCV (79.0-92.2) fl MCH (25.7-32.2) pg MCHC (32.2-35.5) g/dl RDW Std Deviation (35.1-43.9) fL Plt Count (163-337) K/mm3 MPV (9.4-12.3) fl Neut % (Auto) (34.0-67.9) % Lymph % (Auto) (21.8-53.1) % [place] % (Auto) (5.3-12.2) % Eos % (Auto) (0.8-7.0) Baso % (Auto) (0.1-1.2) % Neut # (Auto) (1.78-5.38) K/mm3 Lymph # (Auto) (1.32-3.57) K/mm3 [place] # (Auto) (0.30-0.82) K/mm3 Eos # (Auto) (0.04-0.54) K/mm3 Baso # (Auto) (0.01-0.08) K/mm3 Manual Slide Review Abnormal smear Sodium 143 (136-145) mEq/L Potassium 3.4 L (3.5-5.1) mEq/L Chloride 106 (98-107) mEq/L Carbon Dioxide 26 (21-32) mEq/L Anion Gap 14.4 (5-15) BUN 37 H (7-18) mg/dL Creatinine 2.2 H (0.7-1.3) mg/dL Est Cr Clr Drug Dosing 29.00 mL/min Estimated GFR (MDRD) 29 (>60) mL/min BUN/Creatinine Ratio 16.8 (14-18) Glucose 86 (70-99) mg/dL Calcium 7.9 L (8.5-10.1) mg/dL Magnesium (1.8-2.4) mg/dL Total Bilirubin 2.1 H (0.2-1.0) mg/dL AST 22 (15-37) U/L ALT 26 (16-63) U/L Alkaline Phosphatase 56 (46-116) U/L C-Reactive Protein 35.1 H* (<1.0) mg/dL Total Protein 4.6 L (6.4-8.2) g/dl Albumin 2.4 L (3.4-5.0) g/dl Globulin 2.2 gm/dL Albumin/Globulin Ratio 1.1 (1-2) Procalcitonin 1.08 H ng/mL 01/18/21 01/18/21 Range/Units 05:06 05:06 WBC 7.64 (4.23-9.07) K/mm3 RBC 3.78 L (4.63-6.08) M/mm3 Hgb 12.4 L (13.7-17.5) gm/dl Hct 37.6 L (40.1-51.0) % MCV 99.5 H (79.0-92.2) fl MCH 32.8 H (25.7-32.2) pg MCHC 33.0 (32.2-35.5) g/dl RDW Std Deviation 53.4 H (35.1-43.9) fL Plt Count 100 L (163-337) K/mm3 MPV 10.2 (9.4-12.3) fl Neut % (Auto) 84.6 H (34.0-67.9) % Lymph % (Auto) 6.7 L (21.8-53.1) % [place] % (Auto) 7.2 (5.3-12.2) % Eos % (Auto) 1.2 (0.8-7.0) Baso % (Auto) 0.0 L (0.1-1.2) % Neut # (Auto) 6.47 H (1.78-5.38) K/mm3 Lymph # (Auto) 0.51 L (1.32-3.57) K/mm3 [place] # (Auto) 0.55 (0.30-0.82) K/mm3 Eos # (Auto) 0.09 (0.04-0.54) K/mm3 Baso # (Auto) 0.00 L (0.01-0.08) K/mm3 Manual Slide Review Sodium 143 (136-145) mEq/L Potassium 3.8 (3.5-5.1) mEq/L Chloride 107 (98-107) mEq/L Carbon Dioxide 26 (21-32) mEq/L Anion Gap 13.8 (5-15) BUN 35 H (7-18) mg/dL Creatinine 2.2 H (0.7-1.3) mg/dL Est Cr Clr Drug Dosing 29.00 mL/min Estimated GFR (MDRD) 29 (>60) mL/min BUN/Creatinine Ratio 15.9 (14-18) Glucose 100 H (70-99) mg/dL Calcium 7.7 L (8.5-10.1) mg/dL Magnesium 2.1 (1.8-2.4) mg/dL Total Bilirubin 1.2 H (0.2-1.0) mg/dL AST 33 (15-37) U/L ALT 29 (16-63) U/L Alkaline Phosphatase 64 (46-116) U/L C-Reactive Protein 28.2 H* (<1.0) mg/dL Total Protein 4.5 L (6.4-8.2) g/dl Albumin 2.2 L (3.4-5.0) g/dl Globulin 2.3 gm/dL Albumin/Globulin Ratio 1.0 (1-2) Procalcitonin ng/mL Result Diagrams: 01/18/21 05:06 01/18/21 05:06 Florian Results Last 24 hrs: Microbiology 01/17/21 08:45 Streptococcus pneumoniae Antigen (M - Final Urine Sepsis Event Note - Evaluation Sepsis Screening Result: Possible Sepsis Risk - Focused Exam Vital Signs: Vital Signs Temp Pulse Resp BP Pulse Ox Pulse Ox 01/18/21 04:34 98.6 F 74 22 H 101/73 92 L 12/09/21 02:21 69 93 L 01/18/21 02:20 98.8 F 69 22 H 119/79 91 L 01/17/21 20:22 92 L 01/17/21 20:04 94/67 01/17/21 20:03 99.5 F 88 20 94/59 L 92 L - Problem List & Annotations (1) Pneumonia SNOMED Code(s): 487566626 Code(s): J18.9 - PNEUMONIA, UNSPECIFIED ORGANISM Status: Acute Priority: High Current Visit: Yes Qualifiers: Pneumonia type: due to unspecified organism Laterality: bilateral Lung location: lower lobe of lung Qualified Code(s): J18.9 - Pneumonia, unspecified organism (2) Bilateral conjunctivitis SNOMED Code(s): 7663746 Code(s): H10.9 - UNSPECIFIED CONJUNCTIVITIS Status: Acute Priority: High Current Visit: Yes Qualifiers: Conjunctivitis type: acute Acute conjunctivitis type: bacterial Qualified Code(s): H10.33 - Unspecified acute conjunctivitis, bilateral (3) History of pulmonary embolus (PE) SNOMED Code(s): 378270002 Code(s): Z86.711 - PERSONAL HISTORY OF PULMONARY EMBOLISM Status: Chronic Priority: Medium Current Visit: No (4) Acute respiratory failure SNOMED Code(s): 18628189 Code(s): J96.00 - ACUTE RESPIRATORY FAILURE, UNSP W HYPOXIA OR HYPERCAPNIA Status: Acute Priority: High Current Visit: Yes Qualifiers: Respiratory failure complication: hypoxia Qualified Code(s): J96.01 - Acute respiratory failure with hypoxia (5) Chronic anticoagulation SNOMED Code(s): 799214966 Code(s): Z79.01 - INTERMEDIATE (CURRENT) USE OF ANTICOAGULANTS Status: Chronic Priority: Medium Current Visit: Yes (6) Hypoxia SNOMED Code(s): 884376615 Code(s): R09.02 - HYPOXEMIA Status: Acute Priority: High Current Visit: Yes (7) History of multiple myeloma SNOMED Code(s): 709731204423727 Code(s): Z85.79 - PRSNL HX OF MALIG NEOPLM OF LYMPHOID, HEMATPOETC & REL TISS Status: Chronic Priority: Medium Current Visit: No (8) HTN (hypertension) SNOMED Code(s): 33358022 Code(s): I10 - ESSENTIAL (PRIMARY) HYPERTENSION Status: Chronic Priority: Medium Current Visit: No Qualifiers: Hypertension type: unspecified Qualified Code(s): I10 - Essential (primary) hypertension (9) HLD (hyperlipidemia) SNOMED Code(s): 62823675 Code(s): E78.5 - HYPERLIPIDEMIA, UNSPECIFIED Status: Chronic Priority: Low Current Visit: No Qualifiers: Hyperlipidemia type: unspecified Qualified Code(s): E78.5 - Hyperlipidemia, unspecified (10) Obstructive sleep apnea on CPAP SNOMED Code(s): 44930705 Code(s): G47.33 - OBSTRUCTIVE SLEEP APNEA (ADULT) (PEDIATRIC); Z99.89 - DEPENDENCE ON OTHER ENABLING MACHINES AND DEVICES Status: Chronic Priority: Medium Current Visit: Yes (11) Prostate disorder SNOMED Code(s): 98805729 Code(s): N42.9 - DISORDER OF PROSTATE, UNSPECIFIED Status: Chronic Pr iority: Low Current Visit: No (12) Hypothyroidism SNOMED Code(s): 77803088 Code(s): E03.9 - HYPOTHYROIDISM, UNSPECIFIED Status: Chronic Priority: Low Current Visit: No Qualifiers: Hypothyroidism type: unspecified Qualified Code(s): E03.9 - Hypothyroidism, unspecified (13) Obesity SNOMED Code(s): 868695945, 244846098 Code(s): E66.9 - OBESITY, UNSPECIFIED Status: Chronic Priority: Low Current Visit: No Qualifiers: Obesity type: unspecified obesity type Obesity classification: unspecified obesity classification Serious obesity comorbidity presence: without serious comorbidity Qualified Code(s): E66.9 - Obesity, unspecified (14) Rosacea SNOMED Code(s): 822087234 Code(s): L71.9 - ROSACEA, UNSPECIFIED Status: Chronic Priority: Low Current Visit: No (15) Vitiligo SNOMED Code(s): 21516087 Code(s): L80 - VITILIGO Status: Chronic Priority: Low Current Visit: No (16) Personal history of COVID-19 SNOMED Code(s): 409489514904229560, 857818604107140030 Code(s): Z86.16 - PERSONAL HISTORY OF COVID-19 Status: Chronic Priority: Low Current Visit: No (17) Chronic constipation SNOMED Code(s): 838807177 Code(s): K59.09 - OTHER CONSTIPATION Status: Chronic Priority: Low Current Visit: Yes (18) Pedal edema SNOMED Code(s): 815894708 Code(s): R60.0 - LOCALIZED EDEMA Status: Chronic Priority: Low Current Visit: Yes (19) Hypokalemia SNOMED Code(s): 36431163 Code(s): E87.6 - HYPOKALEMIA Status: Acute Priority: High Current Visit: Yes (20) CKD (chronic kidney disease) SNOMED Code(s): 661937687 Code(s): N18.9 - CHRONIC KIDNEY DISEASE, UNSPECIFIED Status: Chronic Priority: Medium Current Visit: Yes Qualifiers: Chronic kidney disease stage: stage 3 (moderate) Chronic kidney disease stage 3 subtype: stage 3b (GFR 30-44) Qualified Code(s): N18.32 - Chronic kidney disease, stage 3b - Problem List Review Problem List Initiated/Reviewed/Updated: Yes - My Orders Last 24 Hours: My Active Orders 01/17/21 09:00 Cholecalciferol (Vitamin D3) [Vitamin D3] 50 mcg PO DAILY Docusate Sodium [Colace] 100 mg PO DAILY allopurinoL [Zyloprim] 50 mg PO DAILY polyethylene glycoL 3350 [MiraLAX] 17 gm PO DAILY 01/17/21 13:00 Azithromycin [Zithromax] 500 mg Sodium Chloride 0.9% [Normal Saline AdvBag] 250 ml IV Q24H 01/17/21 17:40 RESPIRATORY CULT [MREF] Routine 01/18/21 07:06 Potassium Chloride [Klor-Con M20] 40 meq PO ONETIME ONE 01/19/21 05:11 CBC WITH AUTO DIFF [HEME] AM CMP [COMPREHENSIVE METABOLIC PN,CMP] [CHEM] AM CRP [C-REACTIVE PROTEIN] [CHEM] AM 01/20/21 05:11 CBC WITH AUTO DIFF [HEME] AM CMP [COMPREHENSIVE METABOLIC PN,CMP] [CHEM] AM CRP [C-REACTIVE PROTEIN] [CHEM] AM - Assessment Assessment:: 01/17/2021 This is a 80-year-old male with a history of multiple myeloma admitted to the floor on telemetry for management of bilateral pneumonia. Met SIRS criteria but not sepsis. Mycoplasma, strep pneumonia, blood cultures x2, sputum culture, and procalcitonin are all still pending. Patient remains on Zosyn every 8 hours and overall clinically looks much better today. He states he feels better as well. He has had less purulent drainage from his eyes and his conjunctivitis appears to be improving. Labs today show WBC of 8.71. Hemoglobin is 13.3. Platelet 96,000. Neutrophils are elevated 86.5%. Sodium is 143. Potassium 3.4 and this will be supplemented. Chloride 106. Carbon dioxide 26. Anion gap is 14.4. BUN is 37. Creatinine is 2.2. GFR is 29. Glucose is 86. Calcium is 7.9. Total bilirubin 2.1. AST is 22, ALT 26, alkaline phosphatase 56. CRP is 35.1. Protein is 4.6. Albumin is 2.4. We will give him some IV fluids today. He otherwise continues to improve. We will continue Zosyn pending outstanding lab results. Likely discharge in 2-3 more days. 01/18/2021 This is a 80-year-old male admitted to the floor for treatment of his pneumonia. He continues on Zosyn every 8 hours and azithromycin daily. He is overall doing well. Lung sounds have improved. He states his cough is improving and he feels better. He is on room air. Is also noted to have bilateral conjunctivitis and this has been improving with eyedrops. Labs today show WBC of 7.64. Hemoglobin 12.4. Platelet 100,000. Neutrophils are elevated at 84.6. Patient was receiving IV fluids yesterday and these were discontinued. This is likely the cause of patient's anemia. Sodium is 143. Potassium is up to 3.8. We will provide 1 more 40 mill equivalent supplement today. Chloride is 107. Carbon dioxide 26. Anion gap 13.8. BUN is 35. Creatinine is 2.2 which appears to be patient's baseline. GFR is 29. Glucose is 100. Calcium is 7.7. Magnesium 2.1. Total bilirubin 1.2. AST is 33, ALT 29, alkaline phosphatase 64. CRP is 28.2. Albumin is 2.2. Strep pneumonia is negative. Blood cultures are still pending. Likely discharge tomorrow pending continued improvements. - Plan Plan:: Pneumonia Personal history of COVID-19 Acute respiratory failure Hypoxia Obstructive sleep apnea on CPAP * On admission met SIRS criteria but not sepsis due to no end organ failure * Blood cultures x2 pending * Mycoplasma pending * Strep pneumo negative * IV fluids at 100 mils an hour * Zosyn every 8 hours * Azithromycin 500mg daily for atypical coverage * O2 as needed to keep saturations above 90% * CPAP when napping or sleeping * As needed albuterol neb * As needed DuoNeb * I-S/Acapella * Consult respiratory therapy * PT/OT evaluation * Case management/social work consultation * Home respiratory medications as ordered Bilateral conjunctivitis * Polymyxin B/trimethoprim ophthalmic solution 1 drop bilaterally every 4 hour * Warm compresses to eyes BID and as needed Hypokalemia * Supplement * Monitor labs CKD * Appears to be at baseline based on prior labs * Avoid nephrotoxic meds if able History of pulmonary embolus (PE) Chronic anticoagulation * Continue home Eliquis * No acute concerns History of multiple myeloma * No acute concerns * Hold home meds HTN (hypertension) * No acute concerns * Continue home medications HLD (hyperlipidemia) * No acute concerns * Hold home statin for now Prostate disorder * No acute concerns * Continue home Flomax Hypothyroidism * No acute concerns * Continue home levothyroxine Obesity * No acute concerns * Consider dietitian consultation Rosacea Vitiligo * No acute concerns Chronic constipation * No acute concerns * Continue home scheduled laxatives/stool softeners * PRN laxatives/stool softeners Pedal Edema - chronic * No acute concerns * AMANDA hose * Elevated extremities whenever possible Thrombocytopenia * Chronic - no acute concerns * Monitor labs * Continue home Eliquis Code Status: CPR only PCP: Dr. Gutierrez Oncology/Hematology: Dr. Gutierrez DVT prophylaxis: Home Eliquis Disposition: Patient admitted to the floor on telemetry for management of his pneumonia and bilateral conjunctivitis. Length of stay likely 3 to 4 days. <Josiah Murrell Jr - Last Filed: 01/18/21 18:25> - Patient Data Vitals - Most Recent: Last Vital Signs Temp 98.1 F 01/18/21 15:18 Pulse 86 01/18/21 15:18 Resp 23 H 01/18/21 15:18 BP 96/62 01/18/21 15:18 Pulse Ox 96 01/18/21 16:43 I&O - Last 24 Hours: Intake & Output 1201/18/21 01/18/21 06:59 14:59 22:59 Intake Total 1645 175 300 Output Total 1600 700 Balance 45 175 -400 Lab Results Last 24 Hours: Laboratory Results - last 24 hr 01/16/21 01/18/21 01/18/21 Range/Units 13:04 05:06 05:06 WBC 7.64 (4.23-9.07) K/mm3 RBC 3.78 L (4.63-6.08) M/mm3 Hgb 12.4 L (13.7-17.5) gm/dl Hct 37.6 L (40.1-51.0) % MCV 99.5 H (79.0-92.2) fl MCH 32.8 H (25.7-32.2) pg MCHC 33.0 (32.2-35.5) g/dl RDW Std Deviation 53.4 H (35.1-43.9) fL Plt Count 100 L (163-337) K/mm3 MPV 10.2 (9.4-12.3) fl Neut % (Auto) 84.6 H (34.0-67.9) % Lymph % (Auto) 6.7 L (21.8-53.1) % [place] % (Auto) 7.2 (5.3-12.2) % Eos % (Auto) 1.2 (0.8-7.0) Baso % (Auto) 0.0 L (0.1-1.2) % Neut # (Auto) 6.47 H (1.78-5.38) K/mm3 Lymph # (Auto) 0.51 L (1.32-3.57) K/mm3 [place] # (Auto) 0.55 (0.30-0.82) K/mm3 Eos # (Auto) 0.09 (0.04-0.54) K/mm3 Baso # (Auto) 0.00 L (0.01-0.08) K/mm3 Sodium 143 (136-145) mEq/L Potassium 3.8 (3.5-5.1) mEq/L Chloride 107 (98-107) mEq/L Carbon Dioxide 26 (21-32) mEq/L Anion Gap 13.8 (5-15) BUN 35 H (7-18) mg/dL Creatinine 2.2 H (0.7-1.3) mg/dL Est Cr Clr Drug Dosing 29.00 mL/min Estimated GFR (MDRD) 29 (>60) mL/min BUN/Creatinine Ratio 15.9 (14-18) Glucose 100 H (70-99) mg/dL Calcium 7.7 L (8.5-10.1) mg/dL Magnesium 2.1 (1.8-2.4) mg/dL Total Bilirubin 1.2 H (0.2-1.0) mg/dL AST 33 (15-37) U/L ALT 29 (16-63) U/L Alkaline Phosphatase 64 (46-116) U/L C-Reactive Protein 28.2 H* (<1.0) mg/dL Total Protein 4.5 L (6.4-8.2) g/dl Albumin 2.2 L (3.4-5.0) g/dl Globulin 2.3 gm/dL Albumin/Globulin Ratio 1.0 (1-2) Miscellaneous Test See scanned report [place] Results Last 24 Hours: Microbiology 01/16/21 13:11 Blood Culture - Preliminary Blood - Venous - Lab Draw 01/16/21 13:04 Blood Culture - Preliminary Blood - Venous 01/17/21 08:45 Streptococcus pneumoniae Antigen (M - Final Urine Med Orders - Current: Current Medications Acetaminophen (Acetaminophen 325 Mg Tab) 650 mg PO Q4H PRN PRN Reason: Pain (Mild 1-3)/fever Last Admin: 01/18/21 13:54 Dose: 650 mg Documented by: Albuterol (Albuterol 0.083% 2.5 Mg/3 Ml Neb Soln) 2.5 mg NEB Q2H PRN PRN Reason: Shortness Of Breath/wheezing Albuterol/Ipratropium (Albuterol/Ipratropium 3.0-0.5 Mg/3 Ml Neb Soln) 3 ml NEB QIDRT PRN PRN Reason: Shortness Of Breath/wheezing Last Admin: 01/18/21 16:36 Dose: 3 ml Documented by: Allopurinol (Allopurinol 100 Mg Tab) 50 mg PO DAILY [facility] Last Admin: 01/18/21 09:38 Dose: 50 mg Documented by: Apixaban (Apixaban 5 Mg Tab) 5 mg PO BID [facility] Last Admin: 01/18/21 09:38 Dose: 5 mg Documented by: Cholecalciferol (Cholecalciferol (Vitamin D3) 25 Mcg Tab) 50 mcg PO DAILY [facility] Last Admin: 01/18/21 09:37 Dose: 50 mcg Documented by: Docusate Sodium (Docusate Sodium 100 Mg Cap) 100 mg PO DAILY [facility] Last Admin: 01/18/21 09:38 Dose: 100 mg Documented by: Gabapentin (Gabapentin 100 Mg Cap) 100 mg PO BID [facility] Last Admin: 01/18/21 09:38 Dose: 100 mg Documented by: Piperacillin Sod/Tazobactam (Sod 4.5 gm/ Sodium Chloride) 100 mls @ 25 mls/hr IV Q8H [facility] Last Admin: 01/18/21 16:04 Dose: 25 mls/hr Documented by: Azithromycin 500 mg/ Sodium (Chloride) 250 mls @ 250 mls/hr IV Q24H [facility] Last Admin: 01/18/21 14:38 Dose: 250 mls/hr Documented by: Levothyroxine Sodium (Levothyroxine 125 Mcg Tab) 125 mcg PO ACBREAKFAST [facility] Last Admin: 01/18/21 05:31 Dose: 125 mcg Documented by: Mometasone Furoate/Formoterol Fumar (Formoterol/Mometasone 200-5 Mcg 8.8 Gm Inhaler) 2 puff IH BID [facility] Last Admin: 01/18/21 08:53 Dose: 2 puff Documented by: Ondansetron HCl (Ondansetron 4 Mg/2 Ml Sdv) 4 mg IV Q6H PRN PRN Reason: Nausea/Vomiting Polyethylene Glycol (Polyethylene Glycol 3350 Powder 17 Gm Packet) 17 gm PO DAILY [facility] Last Admin: 01/18/21 09:48 Dose: Not Given Documented by: Polymyxin/Trimethoprim Sulfate (Polymyxin B/Trimethoprim 10 Ml Bottle) 0 ml EYEBOTH Q4H [facility] Last Admin: 01/18/21 18:18 Dose: 1 drop Documented by: Senna/Docusate Sodium (Docusate Sodium/Sennosides 50-8.6 Mg Tab) 1 tab PO BID PRN PRN Reason: Constipation Sodium Chloride (Sodium Chloride 0.9% 10 Ml Syringe) 10 ml FLUSH ASDIRECTED PRN PRN Reason: Keep Vein Open Tamsulosin HCl (Tamsulosin 0.4 Mg Cap.Er) 0.4 mg PO BID [facility] Last Admin: 01/18/21 09:38 Dose: 0.4 mg Documented by: Discontinued Medications Albuterol/Ipratropium (Albuterol/Ipratropium 3.0-0.5 Mg/3 Ml Neb Soln) 3 ml NEB ONETIME STA Stop: 01/16/21 12:33 Last Admin: 01/16/21 12:46 Dose: 3 ml Documented by: Piperacillin Sod/Tazobactam (Sod 4.5 gm/ Sodium Chloride) 100 mls @ 200 mls/hr IV ONETIME ONE Stop: 01/16/21 13:59 Last Admin: 01/16/21 13:55 Dose: 200 mls/hr Documented by: Sodium Chloride (Normal Saline) 1,000 mls @ 100 mls/hr IV ASDIRECTED [facility] Stop: 01/16/21 23:44 Last Admin: 01/16/21 14:52 Dose: 100 mls/hr Documented by: Azithromycin 500 mg/ Sodium (Chloride) 250 mls @ 250 mls/hr IV ONETIME ONE Stop: 01/16/21 15:29 Last Admin: 01/16/21 14:52 Dose: 250 mls/hr Documented by: Lactated Ringer's (Ringers, Lactated) 1,000 mls @ 100 mls/hr IV ASDIRECTED [facility] Stop: 01/18/21 18:29 Last Admin: 01/17/21 21:00 Dose: 100 mls/hr Documented by: Magnesium Oxide (Magnesium Oxide 400 Mg Tab) 400 mg PO ONETIME ONE Stop: 01/16/21 14:31 Last Admin: 01/16/21 14:51 Dose: 400 mg Documented by: Potassium Chloride (Potassium Chloride 20 Meq Tab.Er) 40 meq PO ONETIME ONE Stop: 01/16/21 14:31 Last Admin: 01/16/21 14:51 Dose: 40 meq Documented by: Potassium Chloride (Potassium Chloride 20 Meq Tab.Er) 40 meq PO BID [facility] Stop: 01/17/21 21:01 Last Admin: 01/17/21 20:04 Dose: 40 meq Documented by: Potassium Chloride (Potassium Chloride 20 Meq Tab.Er) 40 meq PO ONETIME ONE Stop: 01/18/21 09:31 Last Admin: 01/18/21 09:38 Dose: 40 meq Documented by: - Patient Data Lab Results Last 24 hrs: Laboratory Results - last 24 hr 01/16/21 01/18/21 01/18/21 Range/Units 13:04 05:06 05:06 WBC 7.64 (4.23-9.07) K/mm3 RBC 3.78 L (4.63-6.08) M/mm3 Hgb 12.4 L (13.7-17.5) gm/dl Hct 37.6 L (40.1-51.0) % MCV 99.5 H (79.0-92.2) fl MCH 32.8 H (25.7-32.2) pg MCHC 33.0 (32.2-35.5) g/dl RDW Std Deviation 53.4 H (35.1-43.9) fL Plt Count 100 L (163-337) K/mm3 MPV 10.2 (9.4-12.3) fl Neut % (Auto) 84.6 H (34.0-67.9) % Lymph % (Auto) 6.7 L (21.8-53.1) % [place] % (Auto) 7.2 (5.3-12.2) % Eos % (Auto) 1.2 (0.8-7.0) Baso % (Auto) 0.0 L (0.1-1.2) % Neut # (Auto) 6.47 H (1.78-5.38) K/mm3 Lymph # (Auto) 0.51 L (1.32-3.57) K/mm3 [place] # (Auto) 0.55 (0.30-0.82) K/mm3 Eos # (Auto) 0.09 (0.04-0.54) K/mm3 Baso # (Auto) 0.00 L (0.01-0.08) K/mm3 Sodium 143 (136-145) mEq/L Potassium 3.8 (3.5-5.1) mEq/L Chloride 107 (98-107) mEq/L Carbon Dioxide 26 (21-32) mEq/L Anion Gap 13.8 (5-15) BUN 35 H (7-18) mg/dL Creatinine 2.2 H (0.7-1.3) mg/dL Est Cr Clr Drug Dosing 29.00 mL/min Estimated GFR (MDRD) 29 (>60) mL/min BUN/Creatinine Ratio 15.9 (14-18) Glucose 100 H (70-99) mg/dL Calcium 7.7 L (8.5-10.1) mg/dL Magnesium 2.1 (1.8-2.4) mg/dL Total Bilirubin 1.2 H (0.2-1.0) mg/dL AST 33 (15-37) U/L ALT 29 (16-63) U/L Alkaline Phosphatase 64 (46-116) U/L C-Reactive Protein 28.2 H* (<1.0) mg/dL Total Protein 4.5 L (6.4-8.2) g/dl Albumin 2.2 L (3.4-5.0) g/dl Globulin 2.3 gm/dL Albumin/Globulin Ratio 1.0 (1-2) Miscellaneous Test See scanned report Result Diagrams: 01/18/21 05:06 01/18/21 05:06 [place]ian Results Last 24 hrs: Microbiology 01/16/21 13:11 Blood Culture - Preliminary Blood - Venous - Lab Draw 01/16/21 13:04 Blood Culture - Preliminary Blood - Venous 01/17/21 08:45 Streptococcus pneumoniae Antigen (M - Final Urine Sepsis Event Note - Focused Exam Vital Signs: Vital Signs Temp Pulse Resp BP Pulse Ox Pulse Ox 01/18/21 16:43 96 01/18/21 15:18 98.1 F 86 23 H 96/62 90 L 01/18/21 14:24 98.2 F 01/18/21 13:54 99.8 F 01/18/21 13:50 99.9 F 01/18/21 10:44 98.8 F 102 H 22 H 134/66 90 L 01/18/21 09:56 92 L 01/18/21 08:55 93 L 01/18/21 07:59 98.1 F 92 22 H 114/85 91 L - Plan Plan:: Case discussed in full. Agree with evaluation, assessment and plan. -Jv Hopkins Jr., DO
[2021-01-18] MEDS: Formoterol/Mometasone 200-5 MCG 8.8 GM Inhaler IH SCH ×2 (08:53→20:53)
[2021-01-18] MEDS: Cholecalciferol (Vitamin D3) 25 MCG Tab PO SCH (09:37)
[2021-01-18] MEDS: Allopurinol 100 MG Tab PO SCH (09:38)
[2021-01-18] MEDS: Docusate Sodium 100 MG Cap PO SCH (09:38)
[2021-01-18] MEDS: Gabapentin 100 MG Cap PO SCH ×2 (09:38→21:10)
[2021-01-18] MEDS: Tamsulosin 0.4 MG Cap.ER PO SCH ×2 (09:38→21:10)
[2021-01-18] MEDS: Apixaban 5 MG Tab PO SCH ×2 (09:38→21:10)
[2021-01-18] MEDS: Polyethylene Glycol 3350 Powder 17 GM Packet PO SCH (09:48)
[2021-01-18] MEDS: Albuterol/Ipratropium 3.0-0.5 MG/3 ML Neb Soln NEB PRN ×3 (09:56→20:53)
[2021-01-18] MEDS: Acetaminophen 325 MG Tab PO PRN ×2 (13:54→21:09)
[2021-01-18] MEDS: Azithromycin 500 MG in Sodium Chloride 0.9% 250 ML IV SCH (14:38)
[2021-01-19] MEDS: Polymyxin B/Trimethoprim 10 ML Bottle EYEBOTH SCH ×3 (02:22→09:56)
[2021-01-19] MEDS: Levothyroxine 125 MCG Tab PO SCH (06:22)
[2021-01-19] MEDS: Piperacillin/Tazobactam 4.5 GM in Sodium Chloride 0.9% 100 ML IV SCH (06:22)
--- NOTE | 2021-01-19 08:59 | PCM.DCSUM1 ---
<Tom Velázquez - Last Filed: 01/19/21 09:28> Discharge Summary - Hospital Course HPI Initial Comments: This is a 80-year-old male who presents to our facility today as a direct admit from [facility] oncology. His primary complaint is shortness of breath and he is noted to be quite wheezy on admission. Patient's is at bedside. They report that patient began experiencing shortness of breath over the last 2 days. He had a fever of 103 at the clinic this morning per their report. He also has bilateral injected eyes with purulent drainage from both. Per patient this started in the left eye and has moved to both eyes. He does have a history of Covid infection and was hospitalized here from 10/09/2020 through 10/13/2020. Per patient since that time he is always had some baseline shortness of breath but has not been requiring oxygen. 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 Today he followed up with hematology/oncology, as he was supposed to receive his usual infusion and they sent him here as a direct admit. Chest x-ray was obtained at their facility and shows findings consistent with pneumonia. He reportedly had an influenza a and B screen done along with Covid and all were negative. He had both of his Covid vaccinations in April 2020. He reports he recently had his Covid booster on 01/12/2021. Upon admission temperature was 99.9 Fahrenheit. Pulse was 98. Blood pressure was 144/79. Oxygen saturation was 88% on room air and he was placed on 3 L of oxygen which increased his saturations to the mid 90s. He is placed on telemetry. CBC, CMP, magnesium, blood cultures x2, CRP, sputum culture, procalcitonin, strep pneumonia, lactic acid and mycoplasma will be ordered. He appears to have bilateral conjunctivitis and is allergic to ciprofloxacin so we will start polymyxin B/trimethoprim ophthalmic solution. IV is established. We will start him on Zosyn. He is placed on droplet isolation. I-S and Acapella are ordered. As needed albuterol and DuoNeb nebulizers are ordered with first DuoNeb right now due to patient's wheezing. He caries a history of: HLD, HTN, recurrent bronchitis, sleep apnea with CPAP, prostate disorder, hypothyroidism, obesity, rosacea, vitiligo, COVID-19 PNA. He is a CPR only. His PCP is Dr. Gutierrez. Patient meets SIRS criteria but not sepsis as he has no acute organ dysfunction. Patient has baseline thrombocytopenia and CKD based on prior labs. Diagnosis: Stroke: No - Discharge Data Discharge Date: 01/19/21 (Admit date: 01/16/2021) Discharge Disposition: Home, Self-Care 01 Condition: Good - Referral to Home Health Primary Care Physician: Mal Gutierrez MD - Discharge Diagnosis/Problem(s) (1) Pneumonia SNOMED Code(s): 910160790 ICD Code: J18.9 - PNEUMONIA, UNSPECIFIED ORGANISM Status: Acute Priority: High Current Visit: Yes Qualifiers: Pneumonia type: due to unspecified organism Laterality: bilateral Lung location: lower lobe of lung Qualified Code(s): J18.9 - Pneumonia, unspecified organism (2) Bilateral conjunctivitis SNOMED Code(s): 0412342 ICD Code: H10.9 - UNSPECIFIED CONJUNCTIVITIS Status: Acute Priority: High Current Visit: Yes Qualifiers: Conjunctivitis type: acute Acute conjunctivitis type: bacterial Qualified Code(s): H10.33 - Unspecified acute conjunctivitis, bilateral (3) History of pulmonary embolus (PE) SNOMED Code(s): 084606792 ICD Code: Z86.711 - PERSONAL HISTORY OF PULMONARY EMBOLISM Status: Chronic Priority: Medium Current Visit: No (4) Acute respiratory failure SNOMED Code(s): 97159248 ICD Code: J96.00 - ACUTE RESPIRATORY FAILURE, UNSP W HYPOXIA OR HYPERCAPNIA Status: Acute Priority: High Current Visit: Yes Qualifiers: Respiratory failure complication: hypoxia Qualified Code(s): J96.01 - Acute respiratory failure with hypoxia (5) Chronic anticoagulation SNOMED Code(s): 161951910 ICD Code: Z79.01 - CARE HOME (CURRENT) USE OF ANTICOAGULANTS Status: Chronic Priority: Medium Current Visit: Yes (6) Hypoxia SNOMED Code(s): 937973505 ICD Code: R09.02 - HYPOXEMIA Status: Acute Priority: High Current Visit: Yes (7) History of multiple myeloma SNOMED Code(s): 164481662063267 ICD Code: Z85.79 - PRSNL HX OF MALIG NEOPLM OF LYMPHOID, HEMATPOETC & REL TISS Status: Chronic Priority: Medium Current Visit: No (8) HTN (hypertension) SNOMED Code(s): 40868736 ICD Code: I10 - ESSENTIAL (PRIMARY) HYPERTENSION Status: Chronic Priority: Medium Current Visit: No Qualifiers: Hypertension type: unspecified Qualified Code(s): I10 - Essential (primary) hypertension (9) HLD (hyperlipidemia) SNOMED Code(s): 70244148 ICD Code: E78.5 - HYPERLIPIDEMIA, UNSPECIFIED Status: Chronic Priority: Low Current Visit: No Qualifiers: Hyperlipidemia type: unspecified Qualified Code(s): E78.5 - Hyperlipidemia, unspecified (10) Obstructive sleep apnea on CPAP SNOMED Code(s): 08677301 ICD Code: G47.33 - OBSTRUCTIVE SLEEP APNEA (ADULT) (PEDIATRIC); Z99.89 - DEPENDENCE ON OTHER ENABLING MACHINES AND DEVICES Status: Chronic Priority: Medium Current Visit: Yes (11) Prostate disorder SNOMED Code(s): 96282255 ICD Code: N42.9 - DISORDER OF PROSTATE, UNSPECIFIED Status: Chronic Priority: Low Current Visit: No (12) Hypothyroidism SNOMED Code(s): 20613534 ICD Code: E03.9 - HYPOTHYROIDISM, UNSPECIFIED Status: Chronic Priority: Low Current Visit: No Qualifiers: Hypothyroidism type: unspecified Qualified Code(s): E03.9 - Hypothyroidism, unspecified (13) Obesity SNOMED Code(s): 603669019, 852658991 ICD Code: E66.9 - OBESITY, UNSPECIFIED Status: Chronic Priority: Low Current Visit: No Qualifiers: Obesity type: unspecified obesity type Obesity classification: unspecified obesity classification Serious obesity comorbidity presence: without serious comorbidity Qualified Code(s): E66.9 - Obesity, unspecified (14) Rosacea SNOMED Code(s): 107114035 ICD Code: L71.9 - ROSACEA, UNSPECIFIED Status: Chronic Priority: Low Current Visit: No (15) Vitiligo SNOMED Code(s): 74351717 ICD Code: L80 - VITILIGO Status: Chronic Priority: Low Current Visit: No (16) Personal history of COVID-19 SNOMED Code(s): 409896381052519164, 102147067930888860 ICD Code: Z86.16 - PERSONAL HISTORY OF COVID-19 Status: Chronic Priority: Low Current Visit: No (17) Chronic constipation SNOMED Code(s): 540838904 ICD Code: K59.09 - OTHER CONSTIPATION Status: Chronic Priority: Low Current Visit: Yes (18) Pedal edema SNOMED Code(s): 315254964 ICD Code: R60.0 - LOCALIZED EDEMA Status: Chronic Priority: Low Current Visit: Yes (19) Hypokalemia SNOMED Code(s): 89274486 ICD Code: E87.6 - HYPOKALEMIA Status: Resolved Priority: High Current Visit: Yes (20) CKD (chronic kidney disease) SNOMED Code(s): 718893000 ICD Code: N18.9 - CHRONIC KIDNEY DISEASE, UNSPECIFIED Status: Chronic Priority: Medium Current Visit: Yes Qualifiers: Chronic kidney disease stage: stage 3 (moderate) Chronic kidney disease stage 3 subtype: stage 3b (GFR 30-44) Qualified Code(s): N18.32 - Chronic kidney disease, stage 3b - Patient Summary/Data Consults: Consultations 01/16/21 12:35 Consult to Case Management/Baking Assistant [CONS] Routine 01/16/21 12:37 OT Evaluation and Treatment [CONS] Routine PT Evaluation and Treatment [CONS] Routine Respiratory Care Assess and Treatment [CONS] Routine Labs Pending at D/C: Respiratory culture Recommended Follow-up Testing/Procedures: Follow-up with primary care provider within 5 to 7 days of discharge, sooner if needed. * Patient discharged on 5 more days of every 4 hours polymyxin B/trimethoprim eyedrops due to bilateral conjunctivitis. Please follow-up on this. * Patient discharged on Augmentin 875/125 mg every 12 hours for 4 [facility] * Patient has been on as needed Advair. This was increased to 2 puffs twice daily scheduled given his chronic lung conditions and wheezing. * Recommend repeat CBC, CMP, and magnesium in follow-up. Consider repeat chest x-ray. Follow-up with hematology/oncology as per prior. Hospital Course: This is a 80-year-old male who presented to our facility as a direct admit with bilateral pneumonia. On admission he was noted to have injected eyes bilaterally with purulent drainage and was started on Polytrim ophthalmic. He carries a history of COVID-19 infection. He has been vaccinated and did receive his booster the Friday prior to admission. He also has a history of BILLY on CPAP, CKD, PE, DVT on Eliquis, multiple myeloma, HTN, HLD, prostate disorder, hypothyroidism, obesity, rosacea, vitiligo, chronic constipation, chronic pedal edema, thrombocytopenia. He was requiring 3 L at his worst has been weaned off to room air. He met SIRS criteria on admission however his thrombocytopenia and CKD were noted to be at baseline and he did therefore not meet sepsis criteria. Blood cultures were obtained and have been negative. Sputum culture is pending. He was started on Zosyn every 8 hours and 500 mg azithromycin. He received his last dose of azithromycin prior to discharge. He will be switched to Augmentin 875/125 mg every 12 hours. Discussed dosing with pharmacy who reported patient should be fine for the full dose. He has been utilizing his incentive spirometer and Acapella. Potassium was supplemented. Physical therapy and Occupational Therapy have been working with him and stated that he should do fine but he may consider outpatient physical therapy after discharge. He does see hematology/oncology for his multiple myeloma and he was instructed to continue to follow-up with them as prior. All home medications were continued. He will be discharged on five more days of Polytrim eyedrops every 4 hours. He has been discharged on 4 days of Augmentin with his first dose tonight, 01/19/2021 as noted. He was instructed to continue to utilize his Acapella and incentive spirometer for 1-2 more weeks or until symptoms resolve. He is on an as needed Advair. We discussed this and we will increase his dosing to one actuation twice daily scheduled as he does have fairly chronic wheezing and respiratory symptoms. He stated he has plenty of DuoNeb solution at home but did request a refill of his albuterol inhaler which was sent. He discharged home today. Recommend follow-up with primary care provider within 5 to 7 days of discharge, sooner if needed. Recommend repeat CBC, CMP, and magnesium in follow-up. Recommend PCP also follow-up on patient's conjunctivitis which was bilateral. - Patient Instructions Diet: Usual Diet as Tolerated Activity: As Tolerated Driving: Do Not Drive (until feeling better ) Showering/Bathing: May Shower Notify Provider of: Fever, Increased Pain, Drainage, Nausea and/or Vomiting Other/Special Instructions: Follow-up with primary care provider within 5 to 7 days of discharge, sooner if needed. Follow-up with hematology/oncology as prior. As we discussed your Advair is not intended to be a as needed med is more appropriate for a regular dosing given your chronic lung issues. A prescription for this was sent. Please follow this dosing. Continue to utilize your incentive spirometer (clear/blue device you inhale through) and Acapella (tubelike device you blow through) for 1 to 2 weeks or until symptoms resolved. You were prescribed an antibiotic pill called Augmentin. Please take this as prescribed until gone, even if you are feeling 100% better. You should take your first dose tonight, 01/19/2021 and then every 12 hours thereafter until gone. You were given an antibiotic eyedrop. You should apply 1 drop into each eye every 4 hours for the next 5 days. May apply a warm compress to your eyes twice daily or as needed to help with pain. Should symptoms return or worsen contact your primary care provider or return to the emergency room. - Discharge Plan *PRESCRIPTION DRUG MONITORING PROGRAM REVIEWED*: No *COPY OF PRESCRIPTION DRUG MONITORING REPORT IN PATIENT JING: No Prescriptions/Med Rec: Fluticasone Propion/Salmeterol [Advair 250-50 Diskus] 1 each IH BID #2 blst.w.dev Amoxicillin/Potassium Clav [Augmentin 875-125 Tablet] 1 each PO BID #8 tablet Polymyxin B/Trimethoprim [PolyTrim Ophth Soln] 0 ml EYEBOTH Q4H 5 Days #1 bottle Albuterol Sulfate [Proair Respiclick] 1 puff INH Q4H PRN #1 inhaler PRN Reason: Shortness Of Breath Home Medications: Home Meds Acyclovir 400 mg PO BID 11/03/19 [History] Cholecalciferol (Vitamin D3) [Vitamin D3] 2,000 units PO DAILY 11/03/19 [History] Fluconazole [Diflucan] 400 mg PO DAILY 11/03/19 [History] Levothyroxine 125 mcg PO ACBREAKFAST 11/03/19 [History] Rosuvastatin [Crestor] 20 mg PO BEDTIME 11/03/19 [History] Tamsulosin [Flomax] 0.4 mg PO BID 11/03/19 [History] Apixaban [Eliquis] 5 mg PO BID 10/09/20 [History] Atovaquone 10 ml PO DAILY 10/09/20 [History] Bumetanide 1 mg PO DAILY 10/10/20 [History] Gabapentin [Neurontin] 100 mg PO BID 10/10/20 [History] Polyethylene Glycol [Polyox Wsr-301] 17 gm PO DAILY 10/10/20 [History] allopurinoL [Zyloprim] 50 mg PO DAILY 10/10/20 [History] dexAMETHasone [Dexamethasone] 20 mg PO ASDIRECTED 10/10/20 [History] Albuterol/Ipratropium [DuoNeb 3.0-0.5 MG/3 ML] 3 ml NEB Q4H PRN #30 neb 10/12/20 [Rx] Docusate Sodium [Colace Clear] 100 mg PO DAILY #30 capsule 10/12/20 [Rx] Azithromycin 250 mg PO DAILY 01/16/21 [History] Glimepiride 1 mg PO DAILY 01/16/21 [History] Albuterol Sulfate [Proair Respiclick] 1 puff INH Q4H PRN #1 inhaler 01/19/21 [Rx] Amoxicillin/Potassium Clav [Augmentin 875-125 Tablet] 1 each PO BID #8 tablet 01/19/21 [Rx] Fluticasone Propion/Salmeterol [Advair 250-50 Diskus] 1 each IH BID #2 blst.w.dev 01/19/21 [Rx] Polymyxin B/Trimethoprim [PolyTrim Ophth Soln] 0 ml EYEBOTH Q4H 5 Days #1 bottle 01/19/21 [Rx] Oxygen Therapy Mode: Room Air Patient Handouts: CPAP and BPAP Information, Community-Acquired Pneumonia, Adult, [id number], Sepsis, Self Care, Adult Referrals: Mal Gutierrez MD [Primary Care Provider] - 02/01/21 1:00 pm (check in at 12:45) - Discharge Summary/Plan Comment DC Time >30 min.: Yes Total # of Minutes for Discharge Time: 45 - General Info Date of Service: 01/19/21 Admission Dx/Problem (Free Text: Admission Diagnosis/Problem Admission Diagnosis/Problem Pneumonia Functional Status: Reports: Pain Controlled, Tolerating Diet, Ambulating, Urinating, Incentive Spirometry, Other (Acapella ). Denies: New Symptoms - Review of Systems General: Reports: Weakness (improving ). Denies: Fever, Fatigue, Malaise, Chills HEENT: Reports: Other (Improving conjunctivitis with minimal drainage bilaterally). Denies: Eye Pain, Sore Throat Pulmonary: Reports: Shortness of Breath (Improving), Cough, Sputum (Minimal), Wh eezing. Denies: Pleuritic Chest Pain Cardiovascular: Reports: Dyspnea on Exertion (Minimal), Edema (Chronic). Denies: Chest Pain, Palpitations Gastrointestinal: Reports: No Symptoms. Denies: Abdominal Pain, Constipation, Diarrhea, Nausea, Vomiting Genitourinary: Reports: No Symptoms. Denies: Pain Musculoskeletal: Reports: No Symptoms Skin: Reports: No Symptoms. Denies: Cyanosis Neurological: Reports: No Symptoms. Denies: Confusion, Dizziness, Headache, Numbness, Seizure, Syncope, Tingling, Difficulty Walking, Gait Disturbance Psychiatric: Reports: No Symptoms - Patient Data Vitals - Most Recent: Last Vital Signs Temp 98.5 F 01/19/21 03:00 Pulse 77 01/19/21 03:00 Resp 20 01/19/21 03:00 BP 131/57 L 01/19/21 03:00 Pulse Ox 92 L 01/19/21 03:00 Weight - Most Recent: 259 lb 9.6 oz I&O - Last 24 hours: Intake & Output 01/18/21 01/19/21 01/19/21 22:59 06:59 14:59 Intake Total 750 570 Output Total 700 900 Balance 50 -330 Lab Results - Last 24 hrs: Laboratory Results - last 24 hr 01/16/21 01/19/21 01/19/21 Range/Units 13:04 05:35 05:35 WBC 5.94 (4.23-9.07) K/mm3 RBC 3.78 L (4.63-6.08) M/mm3 Hgb 12.2 L (13.7-17.5) gm/dl Hct 38.1 L (40.1-51.0) % MCV 100.8 H (79.0-92.2) fl MCH 32.3 H (25.7-32.2) pg MCHC 32.0 L (32.2-35.5) g/dl RDW Std Deviation 54.6 H (35.1-43.9) fL Plt Count 111 L (163-337) K/mm3 MPV 10.1 (9.4-12.3) fl Neut % (Auto) 83.5 H (34.0-67.9) % Lymph % (Auto) 7.4 L (21.8-53.1) % [place] % (Auto) 7.2 (5.3-12.2) % Eos % (Auto) 1.5 (0.8-7.0) Baso % (Auto) 0.2 (0.1-1.2) % Neut # (Auto) 4.96 (1.78-5.38) K/mm3 Lymph # (Auto) 0.44 L (1.32-3.57) K/mm3 [place] # (Auto) 0.43 (0.30-0.82) K/mm3 Eos # (Auto) 0.09 (0.04-0.54) K/mm3 Baso # (Auto) 0.01 (0.01-0.08) K/mm3 Manual Slide Review Not Reportable Sodium 146 H (136-145) mEq/L Potassium 4.1 (3.5-5.1) mEq/L Chloride 111 H (98-107) mEq/L Carbon Dioxide 24 (21-32) mEq/L Anion Gap 15.1 H (5-15) BUN 33 H (7-18) mg/dL Creatinine 2.1 H (0.7-1.3) mg/dL Est Cr Clr Drug Dosing 30.38 mL/min Estimated GFR (MDRD) 31 (>60) mL/min BUN/Creatinine Ratio 15.7 (14-18) Glucose 93 (70-99) mg/dL Calcium 8.1 L (8.5-10.1) mg/dL Total Bilirubin 1.1 H (0.2-1.0) mg/dL AST 29 (15-37) U/L ALT 30 (16-63) U/L Alkaline Phosphatase 67 (46-116) U/L C-Reactive Protein 19.7 H* (<1.0) mg/dL Total Protein 4.6 L (6.4-8.2) g/dl Albumin 2.1 L (3.4-5.0) g/dl Globulin 2.5 gm/dL Albumin/Globulin Ratio 0.8 L (1-2) Miscellaneous Test See scanned report LONNY Results - Last 24 hrs: Microbiology 01/16/21 13:11 Blood Culture - Preliminary Blood - Venous - Lab Draw 01/16/21 13:04 Blood Culture - Preliminary Blood - Venous 01/17/21 08:45 Streptococcus pneumoniae Antigen (M - Final Urine Med Orders - Current: Current Medications Acetaminophen (Acetaminophen 325 Mg Tab) 650 mg PO Q4H PRN PRN Reason: Pain (Mild 1-3)/fever Last Admin: 01/18/21 21:09 Dose: 650 mg Documented by: Albuterol (Albuterol 0.083% 2.5 Mg/3 Ml Neb Soln) 2.5 mg NEB Q2H PRN PRN Reason: Shortness Of Breath/wheezing Albuterol/Ipratropium (Albuterol/Ipratropium 3.0-0.5 Mg/3 Ml Neb Soln) 3 ml NEB QIDRT PRN PRN Reason: Shortness Of Breath/wheezing Last Admin: 01/18/21 20:53 Dose: 3 ml Documented by: Allopurinol (Allopurinol 100 Mg Tab) 50 mg PO DAILY [facility] Last Admin: 01/18/21 09:38 Dose: 50 mg Documented by: Apixaban (Apixaban 5 Mg Tab) 5 mg PO BID [facility] Last Admin: 01/18/21 21:10 Dose: 5 mg Documented by: Azithromycin (Azithromycin 250 Mg Tab) 500 mg PO ONETIME ONE Stop: 01/19/21 11:01 Cholecalciferol (Cholecalciferol (Vitamin D3) 25 Mcg Tab) 50 mcg PO DAILY [facility] Last Admin: 01/18/21 09:37 Dose: 50 mcg Documented by: Docusate Sodium (Docusate Sodium 100 Mg Cap) 100 mg PO DAILY [facility] Last Admin: 01/18/21 09:38 Dose: 100 mg Documented by: Gabapentin (Gabapentin 100 Mg Cap) 100 mg PO BID [facility] Last Admin: 01/18/21 21:10 Dose: 100 mg Documented by: Piperacillin Sod/Tazobactam (Sod 4.5 gm/ Sodium Chloride) 100 mls @ 25 mls/hr IV Q8H [facility] Last Admin: 01/19/21 06:22 Dose: 25 mls/hr Documented by: Levothyroxine Sodium (Levothyroxine 125 Mcg Tab) 125 mcg PO ACBREAKFAST [facility] Last Admin: 01/19/21 06:22 Dose: 125 mcg Documented by: Mometasone Furoate/Formoterol Fumar (Formoterol/Mometasone 200-5 Mcg 8.8 Gm Inhaler) 2 puff IH BID [facility] Last Admin: 01/18/21 20:53 Dose: 2 puff Documented by: Ondansetron HCl (Ondansetron 4 Mg/2 Ml Sdv) 4 mg IV Q6H PRN PRN Reason: Nausea/Vomiting Polyethylene Glycol (Polyethylene Glycol 3350 Powder 17 Gm Packet) 17 gm PO DAILY [facility] Last Admin: 01/18/21 09:48 Dose: Not Given Documented by: Polymyxin/Trimethoprim Sulfate (Polymyxin B/Trimethoprim 10 Ml Bottle) 0 ml EYEBOTH Q4H [facility] Last Admin: 01/19/21 05:47 Dose: 1 drop Documented by: Senna/Docusate Sodium (Docusate Sodium/Sennosides 50-8.6 Mg Tab) 1 tab PO BID PRN PRN Reason: Constipation Sodium Chloride (Sodium Chloride 0.9% 10 Ml Syringe) 10 ml FLUSH ASDIRECTED PRN PRN Reason: Keep Vein Open Tamsulosin HCl (Tamsulosin 0.4 Mg Cap.Er) 0.4 mg PO BID [facility] Last Admin: 01/18/21 21:10 Dose: 0.4 mg Documented by: Discontinued Medications Albuterol/Ipratropium (Albuterol/Ipratropium 3.0-0.5 Mg/3 Ml Neb Soln) 3 ml NEB ONETIME STA Stop: 01/16/21 12:33 Last Admin: 01/16/21 12:46 Dose: 3 ml Documented by: Piperacillin Sod/Tazobactam (Sod 4.5 gm/ Sodium Chloride) 100 mls @ 200 mls/hr IV ONETIME ONE Stop: 01/16/21 13:59 Last Admin: 01/16/21 13:55 Dose: 200 mls/hr Documented by: Sodium Chloride (Normal Saline) 1,000 mls @ 100 mls/hr IV ASDIRECTED [facility] Stop: 01/16/21 23:44 Last Admin: 01/16/21 14:52 Dose: 100 mls/hr Documented by: Azithromycin 500 mg/ Sodium (Chloride) 250 mls @ 250 mls/hr IV ONETIME ONE Stop: 01/16/21 15:29 Last Admin: 01/16/21 14:52 Dose: 250 mls/hr Documented by: Azithromycin 500 mg/ Sodium (Chloride) 250 mls @ 250 mls/hr IV Q24H [facility] Last Admin: 01/18/21 14:38 Dose: 250 mls/hr Documented by: Lactated Ringer's (Ringers, Lactated) 1,000 mls @ 100 mls/hr IV ASDIRECTED [facility] Stop: 01/18/21 18:29 Last Admin: 01/17/21 21:00 Dose: 100 mls/hr Documented by: Magnesium Oxide (Magnesium Oxide 400 Mg Tab) 400 mg PO ONETIME ONE Stop: 01/16/21 14:31 Last Admin: 01/16/21 14:51 Dose: 400 mg Documented by: Potassium Chloride (Potassium Chloride 20 Meq Tab.Er) 40 meq PO ONETIME ONE Stop: 01/16/21 14:31 Last Admin: 01/16/21 14:51 Dose: 40 meq Documented by: Potassium Chloride (Potassium Chloride 20 Meq Tab.Er) 40 meq PO BID [facility] Stop: 01/17/21 21:01 Last Admin: 01/17/21 20:04 Dose: 40 meq Documented by: Potassium Chloride (Potassium Chloride 20 Meq Tab.Er) 40 meq PO ONETIME ONE Stop: 01/18/21 09:31 Last Admin: 01/18/21 09:38 Dose: 40 meq Documented by: - Exam Quality Assessment: Reports: DVT Prophylaxis. Denies: Supplemental Oxygen, Urine Catheter General: Reports: Alert, Oriented, Cooperative HEENT: Reports: Pupils Equal, Pupils Reactive, Mucous Membr. Moist/[place], Other (Mild drainage bilaterally. Mildly injected eyes which have improved since admission.) Neck: Reports: Supple, Trachea Midline Lungs: Reports: Normal Respiratory Effort, Rhonchi (Minimal), Wheezing Cardiovascular: Reports: Regular Rate, Regular Rhythm GI/Abdominal Exam: Normal Bowel Sounds, Soft, Non-Tender, No Distention (Male) Exam: Deferred Rectal (Males) Exam: Deferred Back Exam: Reports: Normal Inspection, Full Range of Motion Extremities: Normal Inspection, Normal Range of Motion, Non-Tender, Normal Capillary Refill, Pedal Edema (1+ bilaterally) Skin: Reports: Warm, Dry, Intact Neurological: Reports: No New Focal Deficit Psy/Mental Status: Reports: Alert, Normal Affect, Normal Mood <Nyasia,Josiah Wilfred Jr - Last Filed: 01/19/21 11:04> Discharge Summary - Referral to Home Health Primary Care Physician: Mal Gutierrez MD - Patient Summary/Data Consults: Consultations 01/16/21 12:35 Consult to Case Management/Baking Assistant [CONS] Routine 01/16/21 12:37 OT Evaluation and Treatment [CONS] Routine PT Evaluation and Treatment [CONS] Routine Respiratory Care Assess and Treatment [CONS] Routine - Discharge Summary/Plan Comment Discharge Summary/Plan Comment: Case discussed in full. Agree with evaluation, assessment, and plan. -Jv Hopkins Jr., DO - Patient Data Vitals - Most Recent: Last Vital Signs Temp 98.5 F 01/19/21 03:00 Pulse 77 01/19/21 03:00 Resp 20 01/19/21 03:00 BP 131/57 L 01/19/21 03:00 Pulse Ox 92 L 01/19/21 09:03 I&O - Last 24 hours: Intake & Output 01/18/21 01/19/21 01/19/21 22:59 06:59 14:59 Intake Total 750 570 Output Total 700 900 Balance 50 -330 Lab Results - Last 24 hrs: Laboratory Results - last 24 hr 01/16/21 01/19/21 01/19/21 Range/Units 13:04 05:35 05:35 WBC 5.94 (4.23-9.07) K/mm3 RBC 3.78 L (4.63-6.08) M/mm3 Hgb 12.2 L (13.7-17.5) gm/dl Hct 38.1 L (40.1-51.0) % MCV 100.8 H (79.0-92.2) fl MCH 32.3 H (25.7-32.2) pg MCHC 32.0 L (32.2-35.5) g/dl RDW Std Deviation 54.6 H (35.1-43.9) fL Plt Count 111 L (163-337) K/mm3 MPV 10.1 (9.4-12.3) fl Neut % (Auto) 83.5 H (34.0-67.9) % Lymph % (Auto) 7.4 L (21.8-53.1) % [place] % (Auto) 7.2 (5.3-12.2) % Eos % (Auto) 1.5 (0.8-7.0) Baso % (Auto) 0.2 (0.1-1.2) % Neut # (Auto) 4.96 (1.78-5.38) K/mm3 Lymph # (Auto) 0.44 L (1.32-3.57) K/mm3 [place] # (Auto) 0.43 (0.30-0.82) K/mm3 Eos # (Auto) 0.09 (0.04-0.54) K/mm3 Baso # (Auto) 0.01 (0.01-0.08) K/mm3 Manual Slide Review Not Reportable Sodium 146 H (136-145) mEq/L Potassium 4.1 (3.5-5.1) mEq/L Chloride 111 H (98-107) mEq/L Carbon Dioxide 24 (21-32) mEq/L Anion Gap 15.1 H (5-15) BUN 33 H (7-18) mg/dL Creatinine 2.1 H (0.7-1.3) mg/dL Est Cr Clr Drug Dosing 30.38 mL/min Estimated GFR (MDRD) 31 (>60) mL/min BUN/Creatinine Ratio 15.7 (14-18) Glucose 93 (70-99) mg/dL Calcium 8.1 L (8.5-10.1) mg/dL Total Bilirubin 1.1 H (0.2-1.0) mg/dL AST 29 (15-37) U/L ALT 30 (16-63) U/L Alkaline Phosphatase 67 (46-116) U/L C-Reactive Protein 19.7 H* (<1.0) mg/dL Total Protein 4.6 L (6.4-8.2) g/dl Albumin 2.1 L (3.4-5.0) g/dl Globulin 2.5 gm/dL Albumin/Globulin Ratio 0.8 L (1-2) Miscellaneous Test See scanned report [facility] Results - Last 24 hrs: Microbiology 01/16/21 13:11 Blood Culture - Preliminary Blood - Venous - Lab Draw 01/16/21 13:04 Blood Culture - Preliminary Blood - Venous 01/17/21 08:45 Streptococcus pneumoniae Antigen (M - Final Urine Med Orders - Current: Current Medications Acetaminophen (Acetaminophen 325 Mg Tab) 650 mg PO Q4H PRN PRN Reason: Pain (Mild 1-3)/fever Last Admin: 01/18/21 21:09 Dose: 650 mg Documented by: Albuterol (Albuterol 0.083% 2.5 Mg/3 Ml Neb Soln) 2.5 mg NEB Q2H PRN PRN Reason: Shortness Of Breath/wheezing Albuterol/Ipratropium (Albuterol/Ipratropium 3.0-0.5 Mg/3 Ml Neb Soln) 3 ml NEB QIDRT PRN PRN Reason: Shortness Of Breath/wheezing Last Admin: 01/18/21 20:53 Dose: 3 ml Documented by: Allopurinol (Allopurinol 100 Mg Tab) 50 mg PO DAILY [facility] Last Admin: 01/19/21 09:57 Dose: 50 mg Documented by: Apixaban (Apixaban 5 Mg Tab) 5 mg PO BID [facility] Last Admin: 01/19/21 09:56 Dose: 5 mg Documented by: Cholecalciferol (Cholecalciferol (Vitamin D3) 25 Mcg Tab) 50 mcg PO DAILY [facility] Last Admin: 01/19/21 09:56 Dose: 50 mcg Documented by: Docusate Sodium (Docusate Sodium 100 Mg Cap) 100 mg PO DAILY [facility] Last Admin: 01/19/21 09:57 Dose: 100 mg Documented by: Gabapentin (Gabapentin 100 Mg Cap) 100 mg PO BID [facility] Last Admin: 01/19/21 09:57 Dose: 100 mg Documented by: Piperacillin Sod/Tazobactam (Sod 4.5 gm/ Sodium Chloride) 100 mls @ 25 mls/hr IV Q8H [facility] Last Admin: 01/19/21 06:22 Dose: 25 mls/hr Documented by: Levothyroxine Sodium (Levothyroxine 125 Mcg Tab) 125 mcg PO ACBREAKFAST [facility] Last Admin: 01/19/21 06:22 Dose: 125 mcg Documented by: Mometasone Furoate/Formoterol Fumar (Formoterol/Mometasone 200-5 Mcg 8.8 Gm Inhaler) 2 puff IH BID [facility] Last Admin: 01/19/21 09:03 Dose: 2 puff Documented by: Ondansetron HCl (Ondansetron 4 Mg/2 Ml Sdv) 4 mg IV Q6H PRN PRN Reason: Nausea/Vomiting Polyethylene Glycol (Polyethylene Glycol 3350 Powder 17 Gm Packet) 17 gm PO DAILY [facility] Last Admin: 01/19/21 09:57 Dose: 17 gm Documented by: Polymyxin/Trimethoprim Sulfate (Polymyxin B/Trimethoprim 10 Ml Bottle) 0 ml EYEBOTH Q4H [facility] Last Admin: 01/19/21 09:56 Dose: 1 drop Documented by: Senna/Docusate Sodium (Docusate Sodium/Sennosides 50-8.6 Mg Tab) 1 tab PO BID PRN PRN Reason: Constipation Sodium Chloride (Sodium Chloride 0.9% 10 Ml Syringe) 10 ml FLUSH ASDIRECTED PRN PRN Reason: Keep Vein Open Tamsulosin HCl (Tamsulosin 0.4 Mg Cap.Er) 0.4 mg PO BID [facility] Last Admin: 01/19/21 09:56 Dose: 0.4 mg Documented by: Discontinued Medications Albuterol/Ipratropium (Albuterol/Ipratropium 3.0-0.5 Mg/3 Ml Neb Soln) 3 ml NEB ONETIME STA Stop: 01/16/21 12:33 Last Admin: 01/16/21 12:46 Dose: 3 ml Documented by: Azithromycin (Azithromycin 250 Mg Tab) 500 mg PO ONETIME ONE Stop: 01/19/21 11:01 Last Admin: 01/19/21 10:03 Dose: 500 mg Documented by: Piperacillin Sod/Tazobactam (Sod 4.5 gm/ Sodium Chloride) 100 mls @ 200 mls/hr IV ONETIME ONE Stop: 01/16/21 13:59 Last Admin: 01/16/21 13:55 Dose: 200 mls/hr Documented by: Sodium Chloride (Normal Saline) 1,000 mls @ 100 mls/hr IV ASDIRECTED SARAH Stop: 01/16/21 23:44 Last Admin: 01/16/21 14:52 Dose: 100 mls/hr Documented by: Azithromycin 500 mg/ Sodium (Chloride) 250 mls @ 250 mls/hr IV ONETIME ONE Stop: 01/16/21 15:29 Last Admin: 01/16/21 14:52 Dose: 250 mls/hr Documented by: Azithromycin 500 mg/ Sodium (Chloride) 250 mls @ 250 mls/hr IV Q24H [facility] Last Admin: 01/18/21 14:38 Dose: 250 mls/hr Documented by: Lactated Ringer's (Ringers, Lactated) 1,000 mls @ 100 mls/hr IV ASDIRECTED [facility] Stop: 01/18/21 18:29 Last Admin: 01/17/21 21:00 Dose: 100 mls/hr Documented by: Magnesium Oxide (Magnesium Oxide 400 Mg Tab) 400 mg PO ONETIME ONE Stop: 01/16/21 14:31 Last Admin: 01/16/21 14:51 Dose: 400 mg Documented by: Potassium Chloride (Potassium Chloride 20 Meq Tab.Er) 40 meq PO ONETIME ONE Stop: 01/16/21 14:31 Last Admin: 01/16/21 14:51 Dose: 40 meq Documented by: Potassium Chloride (Potassium Chloride 20 Meq Tab.Er) 40 meq PO BID [facility] Stop: 01/17/21 21:01 Last Admin: 01/17/21 20:04 Dose: 40 meq Documented by: Potassium Chloride (Potassium Chloride 20 Meq Tab.Er) 40 meq PO ONETIME ONE Stop: 01/18/21 09:31 Last Admin: 01/18/21 09:38 Dose: 40 meq Documented by:
[2021-01-19] MEDS: Formoterol/Mometasone 200-5 MCG 8.8 GM Inhaler IH SCH (09:03)
[2021-01-19] MEDS: Cholecalciferol (Vitamin D3) 25 MCG Tab PO SCH (09:56)
[2021-01-19] MEDS: Apixaban 5 MG Tab PO SCH (09:56)
[2021-01-19] MEDS: Tamsulosin 0.4 MG Cap.ER PO SCH (09:56)
[2021-01-19] MEDS: Docusate Sodium 100 MG Cap PO SCH (09:57)
[2021-01-19] MEDS: Gabapentin 100 MG Cap PO SCH (09:57)
[2021-01-19] MEDS: Polyethylene Glycol 3350 Powder 17 GM Packet PO SCH (09:57)
[2021-01-19] MEDS: Allopurinol 100 MG Tab PO SCH (09:57)
[2021-01-19] MEDS ORDERED: Azithromycin 250 MG Tab PO ONE (11:00)
== END 2021-01-19 11:41 | disposition home or self-care (01) | DRG 193 ==
LOC: JD.MS 12:17
PROVIDERS: ADMIT Family Medicine; ATTEND Family Medicine
DX: J18.9 Pneumonia, unspecified organism (principal); J96.01 Acute respiratory failure with hypoxia; H10.33 Unspecified acute conjunctivitis, bilateral; D69.6 Thrombocytopenia, unspecified; E78.5 Hyperlipidemia, unspecified; G47.33 Obstructive sleep apnea (adult) (pediatric); N42.9 Disorder of prostate, unspecified; E03.9 Hypothyroidism, unspecified; E66.9 Obesity, unspecified; L71.9 Rosacea, unspecified; L80 Vitiligo; E87.6 Hypokalemia; N18.32 Chronic kidney disease, stage 3b; K59.09 Other constipation; H54.7 Unspecified visual loss; E78.00 Pure hypercholesterolemia, unspecified; I12.9 Hypertensive chronic kidney disease with stage 1 through stage 4 chronic kidney disease, or unspecified chronic kidney disease; Z90.49 Acquired absence of other specified parts of digestive tract; Z96.659 Presence of unspecified artificial knee joint; Z79.01 Long term (current) use of anticoagulants; Z86.711 Personal history of pulmonary embolism; Z85.79 Personal history of other malignant neoplasms of lymphoid, hematopoietic and related tissues; Z86.16 Personal history of COVID-19; Z98.49 Cataract extraction status, unspecified eye; Z79.899 Other long term (current) drug therapy
CPT/HCPCS: 36415; 80053; 83605; 83735; 84145; 85025; 86140; 87040; 87070; 87205; 87899; 94640; 94667; 94668; 94760; 94761; 97116-GP; 97162-GP; 97165-GO; 97530-GO; A9270-GY; J0456; J2543; J7030; J7050; J7120; J7620-GY

== ENCOUNTER 2021-06-16 15:25 | Emergency (ER) | payer MEDICARE, BC ==
[2021-06-16] MEDS ORDERED: ceFAZolin 1 GM in Sodium Chloride 0.9% 50 ML IV ONE (17:02)
== END 2021-06-16 19:26 | disposition home or self-care (01) ==
LOC: JD.ED 15:25
DX: N30.81 Other cystitis with hematuria (principal); E78.00 Pure hypercholesterolemia, unspecified; I12.9 Hypertensive chronic kidney disease with stage 1 through stage 4 chronic kidney disease, or unspecified chronic kidney disease; N18.9 Chronic kidney disease, unspecified; E03.9 Hypothyroidism, unspecified; E66.9 Obesity, unspecified; Z88.1 Allergy status to other antibiotic agents; Z88.2 Allergy status to sulfonamides; Z79.899 Other long term (current) drug therapy; Z79.01 Long term (current) use of anticoagulants; Z86.16 Personal history of COVID-19; Z68.36 Body mass index [BMI] 36.0-36.9, adult
CPT/HCPCS: 36415; 80053; 81001; 85025; 93970; 96365; 99284; J0690

== ENCOUNTER 2021-06-23 14:21 | Emergency (ER) | payer MEDICARE, BC ==
[2021-06-23] MEDS ORDERED: Sodium Chloride 0.9% 10 ML Syringe FLUSH PRN (15:10)
[2021-06-23] MEDS ORDERED: Sodium Chloride 0.9% 1,000 ML IV SCH ×2 (15:15→19:15)
[2021-06-23] MEDS ORDERED: Piperacillin/Tazobactam 4.5 GM in Sodium Chloride 0.9% 100 ML IV ONE (18:31)
== END 2021-06-23 20:15 ==
LOC: JD.ED 14:21
DX: N39.0 Urinary tract infection, site not specified (principal); N32.1 Vesicointestinal fistula; R31.9 Hematuria, unspecified; R19.00 Intra-abdominal and pelvic swelling, mass and lump, unspecified site; E78.00 Pure hypercholesterolemia, unspecified; I12.9 Hypertensive chronic kidney disease with stage 1 through stage 4 chronic kidney disease, or unspecified chronic kidney disease; N18.9 Chronic kidney disease, unspecified; M19.90 Unspecified osteoarthritis, unspecified site; E03.9 Hypothyroidism, unspecified; E66.9 Obesity, unspecified; Z88.2 Allergy status to sulfonamides; Z88.1 Allergy status to other antibiotic agents; Z79.899 Other long term (current) drug therapy; Z79.01 Long term (current) use of anticoagulants; Z68.36 Body mass index [BMI] 36.0-36.9, adult
CPT/HCPCS: 36415; 74176; 80053; 81001; 83605; 83690; 85025; 87040; 87086; 87088; 87186; 96365; 99285; J2543; J3490; J7030

== ENCOUNTER 2021-07-31 08:02 | Inpatient (IN) | payer MEDICARE, BC ==
[2021-07-31] MEDS ORDERED: Ondansetron 4 MG/2 ML SDV IVPUSH ONE ×2 (08:23→08:56)
[2021-07-31] MEDS ORDERED: Ondansetron 4 MG/2 ML SDV ONE (08:24)
[2021-07-31] MEDS ORDERED: Cefepime 2 GM in Sodium Chloride 0.9% 50 ML IV ONE (09:16)
[2021-07-31] MEDS ORDERED: diphenhydrAMINE 50 MG/ML SDV IVPUSH ONE (09:52)
[2021-07-31] MEDS ORDERED: Metoclopramide 10 MG/2 ML SDV IVPUSH ONE (09:52)
[2021-07-31] MEDS ORDERED: Iopamidol 755 Mg/ML 100 ML Bottle IVPUSH ONE (10:03)
[2021-07-31] MEDS ORDERED: Sodium Chloride 0.9% 100 ML IV SCH (10:15)
[2021-07-31] MEDS: Sodium Chloride 0.9% 10 ML Syringe FLUSH PRN ×2 (10:25→10:39)
[2021-07-31] MEDS ORDERED: Lactated Ringers 1,000 ML IV ONE (11:04)
[2021-07-31] MEDS ORDERED: Non-Formulary Medication 1 Each (Dexamethasone [Dexamethasone] 4 MG Tablet) PO SCH (15:45)
[2021-07-31] MEDS: Acetaminophen 325 MG Tab PO PRN (18:02)
[2021-07-31] MEDS ORDERED: Vancomycin 2 GM in Sodium Chloride 0.9% 500 ML IV ONE (20:00)
[2021-07-31] MEDS: Cefepime 2 GM in Sodium Chloride 0.9% 50 ML IV SCH (20:40)
[2021-07-31] MEDS ORDERED: Acyclovir 200 MG Cap PO SCH (21:00)
[2021-07-31] MEDS ORDERED: Apixaban 5 MG Tab PO SCH ×2 (21:00→23:25)
[2021-07-31] MEDS ORDERED: Sodium Chloride 0.9% 500 ML IV ONE ×2 (21:08→22:43)
[2021-07-31] MEDS ORDERED: SODIUM CHLORIDE 0.9% IV ONE (21:45)
[2021-07-31] MEDS ORDERED: VANCOMYCIN IV ONE (21:45)
[2021-07-31] MEDS ORDERED: Apixaban 5 MG Tab PO ONE (23:30)
[2021-07-31] MEDS ORDERED: Acyclovir 200 MG Cap PO ONE (23:30)
[2021-08-01] MEDS ORDERED: Sodium Chloride 0.9% 500 ML IV ONE ×3 (05:24→13:22)
[2021-08-01] MEDS ORDERED: Levothyroxine 125 MCG Tab PO SCH (06:00)
[2021-08-01] MEDS: Sodium Chloride 0.9% 500 ML IV ONE ×2 (06:46→06:47)
[2021-08-01] MEDS ORDERED: ATOVAQUONE 750 MG/5 ML PO SCH (07:00)
[2021-08-01] MEDS ORDERED: Potassium Chloride 20 MEQ Tab.ER PO ONE (07:22)
[2021-08-01] MEDS ORDERED: Glimepiride 2 MG Tab PO SCH (09:00)
[2021-08-01] MEDS ORDERED: Acyclovir 200 MG Cap PO SCH ×2 (09:00→10:00)
[2021-08-01] MEDS ORDERED: LENALIDOMIDE 25 MG PO SCH (09:00)
[2021-08-01] MEDS: Rosuvastatin 10 MG Tab PO SCH (09:13)
[2021-08-01] MEDS: Cefepime 2 GM in Sodium Chloride 0.9% 50 ML IV SCH ×2 (09:13→20:15)
[2021-08-01] MEDS: Fluconazole 100 MG Tab PO SCH (09:14)
[2021-08-01] MEDS ORDERED: Norepinephrine 4 MG in Dextrose 5% in Water 246 ML IV SCH ×4 (09:15→13:15)
[2021-08-01] MEDS: Allopurinol 100 MG Tab PO SCH (09:15)
[2021-08-01] MEDS: metroNIDAZOLE/Normal Saline 500 MG in Premix Bag 1 BAG IV SCH ×2 (09:48→17:31)
[2021-08-01] MEDS: Acyclovir 200 MG Cap PO SCH ×2 (10:07→20:16)
[2021-08-01] MEDS: Apixaban 5 MG Tab PO SCH ×2 (10:07→20:15)
[2021-08-01] MEDS: Acetaminophen 325 MG Tab PO PRN (11:42)
[2021-08-01] MEDS: Albuterol/Ipratropium 3.0-0.5 MG/3 ML Neb Soln NEB SCH ×3 (12:39→20:24)
[2021-08-01] MEDS: Lactated Ringers 1,000 ML IV SCH ×2 (14:00→23:57)
[2021-08-01] MEDS: Tamsulosin 0.4 MG Cap.ER PO SCH (17:31)
[2021-08-01] MEDS ORDERED: Vancomycin 1500 MG in Sodium Chloride 0.9% 500 ML IV SCH ×3 (20:00)
[2021-08-01] MEDS: Ondansetron 4 MG/2 ML SDV IVPUSH PRN (20:15)
[2021-08-02] MEDS: metroNIDAZOLE/Normal Saline 500 MG in Premix Bag 1 BAG IV SCH ×3 (00:57→17:30)
[2021-08-02] MEDS: Albuterol/Ipratropium 3.0-0.5 MG/3 ML Neb Soln NEB SCH ×4 (03:52→20:20)
[2021-08-02] MEDS: Levothyroxine 125 MCG Tab PO SCH (05:57)
[2021-08-02] MEDS ORDERED: metroNIDAZOLE/Normal Saline 100 ML ONE (08:26)
[2021-08-02] MEDS: Fluconazole 100 MG Tab PO SCH (08:52)
[2021-08-02] MEDS: Acyclovir 200 MG Cap PO SCH ×2 (08:52→20:09)
[2021-08-02] MEDS: Tamsulosin 0.4 MG Cap.ER PO SCH ×2 (08:52→17:30)
[2021-08-02] MEDS: Apixaban 5 MG Tab PO SCH ×2 (08:52→20:09)
[2021-08-02] MEDS: Rosuvastatin 10 MG Tab PO SCH (08:53)
[2021-08-02] MEDS: Bumetanide 1 MG Tab PO SCH (08:53)
[2021-08-02] MEDS: Allopurinol 100 MG Tab PO SCH (08:53)
[2021-08-02] MEDS: Cefepime 2 GM in Sodium Chloride 0.9% 50 ML IV SCH ×2 (09:27→20:09)
[2021-08-02] MEDS: Docusate Sodium 100 MG Cap PO SCH (15:06)
[2021-08-02] MEDS: Ondansetron 4 MG/2 ML SDV IVPUSH PRN (17:39)
[2021-08-03] MEDS: metroNIDAZOLE/Normal Saline 500 MG in Premix Bag 1 BAG IV SCH ×3 (01:00→18:20)
[2021-08-03] MEDS: Albuterol/Ipratropium 3.0-0.5 MG/3 ML Neb Soln NEB SCH ×4 (03:07→21:13)
[2021-08-03] MEDS: Levothyroxine 125 MCG Tab PO SCH (05:35)
[2021-08-03] MEDS: Cefepime 2 GM in Sodium Chloride 0.9% 50 ML IV SCH ×2 (08:58→21:15)
[2021-08-03] MEDS ORDERED: Potassium Chloride 20 MEQ Tab.ER PO ONE (09:00)
[2021-08-03] MEDS: Acyclovir 200 MG Cap PO SCH ×2 (09:09→21:14)
[2021-08-03] MEDS: Bumetanide 1 MG Tab PO SCH (09:09)
[2021-08-03] MEDS: Fluconazole 100 MG Tab PO SCH (09:09)
[2021-08-03] MEDS: Docusate Sodium 100 MG Cap PO SCH (09:09)
[2021-08-03] MEDS: Rosuvastatin 10 MG Tab PO SCH (09:09)
[2021-08-03] MEDS: Tamsulosin 0.4 MG Cap.ER PO SCH ×2 (09:10→18:20)
[2021-08-03] MEDS: Allopurinol 100 MG Tab PO SCH (09:10)
[2021-08-03] MEDS: Apixaban 5 MG Tab PO SCH ×2 (09:18→21:14)
[2021-08-03] MEDS: ATOVAQUONE 750 MG/5 ML PO SCH (11:03)
[2021-08-04] MEDS: metroNIDAZOLE/Normal Saline 500 MG in Premix Bag 1 BAG IV SCH ×2 (01:54→10:01)
[2021-08-04] MEDS: Albuterol/Ipratropium 3.0-0.5 MG/3 ML Neb Soln NEB SCH ×4 (02:43→21:27)
[2021-08-04] MEDS: Levothyroxine 125 MCG Tab PO SCH (06:23)
[2021-08-04] MEDS ORDERED: Potassium Chloride 20 MEQ Tab.ER PO ONE ×2 (07:27→16:00)
[2021-08-04] MEDS: ATOVAQUONE 750 MG/5 ML PO SCH (07:40)
[2021-08-04] MEDS: Cefepime 2 GM in Sodium Chloride 0.9% 50 ML IV SCH ×2 (08:55→20:53)
[2021-08-04] MEDS: Rosuvastatin 10 MG Tab PO SCH (08:58)
[2021-08-04] MEDS: Docusate Sodium 100 MG Cap PO SCH (08:58)
[2021-08-04] MEDS: Bumetanide 1 MG Tab PO SCH (08:58)
[2021-08-04] MEDS: Apixaban 5 MG Tab PO SCH ×2 (08:58→20:53)
[2021-08-04] MEDS: Fluconazole 100 MG Tab PO SCH (08:58)
[2021-08-04] MEDS: Tamsulosin 0.4 MG Cap.ER PO SCH ×2 (08:59→17:08)
[2021-08-04] MEDS: Acyclovir 200 MG Cap PO SCH ×2 (08:59→20:53)
[2021-08-04] MEDS: Allopurinol 100 MG Tab PO SCH (08:59)
[2021-08-05] MEDS: Levothyroxine 125 MCG Tab PO SCH (06:13)
[2021-08-05] MEDS: Tamsulosin 0.4 MG Cap.ER PO SCH ×2 (08:57→18:01)
[2021-08-05] MEDS: Docusate Sodium 100 MG Cap PO SCH (08:57)
[2021-08-05] MEDS: Apixaban 5 MG Tab PO SCH ×2 (08:57→20:45)
[2021-08-05] MEDS: ATOVAQUONE 750 MG/5 ML PO SCH (08:57)
[2021-08-05] MEDS: Fluconazole 100 MG Tab PO SCH (08:57)
[2021-08-05] MEDS: Rosuvastatin 10 MG Tab PO SCH (08:57)
[2021-08-05] MEDS: Acyclovir 200 MG Cap PO SCH ×2 (08:57→20:45)
[2021-08-05] MEDS: Allopurinol 100 MG Tab PO SCH (08:58)
[2021-08-05] MEDS: Bumetanide 1 MG Tab PO SCH (08:58)
[2021-08-05] MEDS: Cefepime 2 GM in Sodium Chloride 0.9% 50 ML IV SCH ×2 (09:05→20:48)
[2021-08-05] MEDS: Albuterol/Ipratropium 3.0-0.5 MG/3 ML Neb Soln NEB SCH ×4 (10:08→21:20)
[2021-08-06] MEDS: Albuterol/Ipratropium 3.0-0.5 MG/3 ML Neb Soln NEB SCH ×3 (10:21→20:51)
[2021-08-06] MEDS: Levothyroxine 125 MCG Tab PO SCH (10:36)
[2021-08-06] MEDS: Docusate Sodium 100 MG Cap PO SCH (10:37)
[2021-08-06] MEDS: Fluconazole 100 MG Tab PO SCH (10:37)
[2021-08-06] MEDS: ATOVAQUONE 750 MG/5 ML PO SCH (10:39)
[2021-08-06] MEDS: Bumetanide 1 MG Tab PO SCH (10:42)
[2021-08-06] MEDS: Rosuvastatin 10 MG Tab PO SCH (10:43)
[2021-08-06] MEDS: Apixaban 5 MG Tab PO SCH ×2 (10:43→20:36)
[2021-08-06] MEDS: Tamsulosin 0.4 MG Cap.ER PO SCH ×2 (10:43→17:44)
[2021-08-06] MEDS: Acyclovir 200 MG Cap PO SCH ×2 (10:44→20:36)
[2021-08-06] MEDS: Cefepime 2 GM in Sodium Chloride 0.9% 50 ML IV SCH ×2 (10:44→20:36)
[2021-08-06] MEDS: Allopurinol 100 MG Tab PO SCH (10:44)
[2021-08-07] MEDS: Albuterol/Ipratropium 3.0-0.5 MG/3 ML Neb Soln NEB SCH ×3 (05:56→15:09)
[2021-08-07] MEDS: Levothyroxine 125 MCG Tab PO SCH (06:16)
[2021-08-07] MEDS: ATOVAQUONE 750 MG/5 ML PO SCH (07:16)
[2021-08-07] MEDS: Fluconazole 100 MG Tab PO SCH (09:47)
[2021-08-07] MEDS: Rosuvastatin 10 MG Tab PO SCH (09:47)
[2021-08-07] MEDS: Acyclovir 200 MG Cap PO SCH (09:48)
[2021-08-07] MEDS: Apixaban 5 MG Tab PO SCH (09:48)
[2021-08-07] MEDS: Tamsulosin 0.4 MG Cap.ER PO SCH (09:48)
[2021-08-07] MEDS: Docusate Sodium 100 MG Cap PO SCH (09:48)
[2021-08-07] MEDS: Bumetanide 1 MG Tab PO SCH (09:48)
[2021-08-07] MEDS: Cefepime 2 GM in Sodium Chloride 0.9% 50 ML IV SCH (09:49)
[2021-08-07] MEDS: Allopurinol 100 MG Tab PO SCH (10:01)
[2021-08-07] MEDS ORDERED: Cefepime 2 GM in Sodium Chloride 0.9% 50 ML IV ONE (16:00)
== END 2021-08-07 16:15 | disposition home or self-care (01) | DRG 862 ==
LOC: JD.ED 08:02 → INTOOBSV 14:22 → JD.MS 14:22 → OBSVTOIN 08-01 07:39 → JD.ICU 08-01 07:48
PROVIDERS: ADMIT Emergency Medicine; ATTEND Internal Medicine
PROC: 3E033XZ Introduction of Vasopressor into Peripheral Vein, Percutaneous Approach (ICD-10-PCS; principal; 2021-08-01)
DX: R53.1 Weakness (principal); T81.44XA Sepsis following a procedure, initial encounter; R11.2 Nausea with vomiting, unspecified; A41.52 Sepsis due to Pseudomonas; J96.01 Acute respiratory failure with hypoxia; G47.30 Sleep apnea, unspecified; R65.21 Severe sepsis with septic shock; C90.00 Multiple myeloma not having achieved remission; N32.1 Vesicointestinal fistula; J44.9 Chronic obstructive pulmonary disease, unspecified; N39.0 Urinary tract infection, site not specified; E03.9 Hypothyroidism, unspecified; E87.6 Hypokalemia; Z86.718 Personal history of other venous thrombosis and embolism; Z96.652 Presence of left artificial knee joint; Z20.822 Contact with and (suspected) exposure to COVID-19; N42.9 Disorder of prostate, unspecified; N18.32 Chronic kidney disease, stage 3b; H54.7 Unspecified visual loss; E78.00 Pure hypercholesterolemia, unspecified; K59.09 Other constipation; I12.9 Hypertensive chronic kidney disease with stage 1 through stage 4 chronic kidney disease, or unspecified chronic kidney disease; E11.22 Type 2 diabetes mellitus with diabetic chronic kidney disease; A41.9 Sepsis, unspecified organism; R65.20 Severe sepsis without septic shock; M19.90 Unspecified osteoarthritis, unspecified site; F41.9 Anxiety disorder, unspecified; F32.A Depression, unspecified; H91.93 Unspecified hearing loss, bilateral; Z86.711 Personal history of pulmonary embolism; Z86.16 Personal history of COVID-19; Z79.01 Long term (current) use of anticoagulants; Z88.1 Allergy status to other antibiotic agents; Z88.2 Allergy status to sulfonamides; Z79.890 Hormone replacement therapy; Z79.899 Other long term (current) drug therapy; Z90.49 Acquired absence of other specified parts of digestive tract; Z98.49 Cataract extraction status, unspecified eye; Z93.3 Colostomy status
CPT/HCPCS: 36415 ×2; 71045 ×2; 71275; 74177; 80048; 80053; 81001; 82803; 82947; 83605 ×3; 83735; 83880; 84484 ×2; 85025; 85027; 85610; 87040 ×2; 87077; 87186; 87502; 93005 ×2; 94660; 94667; 94761; 96361; 96365; 96375; 96376; 99285; A9270 ×4; J0692 ×2; J1200; J2405 ×2; J2765; J3370; J3490 ×2; J7030 ×2; J7040; J7120; Q9967; U0002; 76705; 76705-26; 87154; 93010; 93306; 94640; 94668; 96366; 96367; 97110-GP; 97116-GP; 97162-GP; 99220; 99232; 99238; G0378; J7060; J7620-GY

== ENCOUNTER 2021-08-19 12:46 | Emergency (ER) | payer MEDICARE, BC ==
[2021-08-19] MEDS ORDERED: Potassium Chloride 20 MEQ Tab.ER PO ONE (16:21)
[2021-08-19] MEDS ORDERED: predniSONE 20 MG Tab PO ONE (17:18)
== END 2021-08-19 17:40 | disposition home or self-care (01) ==
LOC: JD.ED 12:46
DX: M10.9 Gout, unspecified (principal); E78.00 Pure hypercholesterolemia, unspecified; I10 Essential (primary) hypertension; E03.9 Hypothyroidism, unspecified; E66.9 Obesity, unspecified; Z86.16 Personal history of COVID-19; Z68.34 Body mass index [BMI] 34.0-34.9, adult; Z88.1 Allergy status to other antibiotic agents; Z88.2 Allergy status to sulfonamides; Z79.01 Long term (current) use of anticoagulants; Z79.899 Other long term (current) drug therapy; Z87.891 Personal history of nicotine dependence
CPT/HCPCS: 36415; 73130; 80053; 81001; 83605; 84550; 85007; 85027; 87040; 99283; A9270; J7512

== ENCOUNTER → 2021-11-13 | Day surgery (SDC) | payer MEDICARE, BC | LOC: JD.SDS 06:00 | DX: S40.852A Superficial foreign body of left upper arm, initial encounter (principal); Z45.2 Encounter for adjustment and management of vascular access device; A49.8 Other bacterial infections of unspecified site; N30.90 Cystitis, unspecified without hematuria; Z79.2 Long term (current) use of antibiotics; Z88.2 Allergy status to sulfonamides; Z88.1 Allergy status to other antibiotic agents | CPT/HCPCS: 36573; 37197; 71045; 76000; C1751; 00400; 99100; 99140 ==

== ENCOUNTER 2023-12-07 15:21 | Inpatient (IN) | payer MEDICARE, BC ==
[2023-12-07 16:30] LABS: CORONAVIRUS COVID-19 NAA NEGATIVE (NEGATIVE); INFLUENZA A NAA NEGATIVE (NEGATIVE); RESPIRATORY SYNCYTIAL VIR NAA NEGATIVE (NEGATIVE)
[2023-12-07] MEDS ORDERED: Sodium Chloride 0.9% 10 ML Syringe FLUSH PRN (16:39)
[2023-12-07 16:57] LABS: BASOPHILS PERCENT AUTO 0.1 % (0.0-1.0); HEMATOCRIT 38.9 % (42.0-52.0); HEMOGLOBIN 13.2 gm/dl (14.0-18.0); IMMATURE GRAN ABSOLUTE AUTO 0.19 K/mm3 (0.00-0.05); IMMATURE GRAN PERCENT AUTO 1.1 % (0.0-0.4); LYMPHOCYTES ABSOLUTE AUTO 0.7 K/mm3 (1.0-4.8); LYMPHOCYTES PERCENT AUTO 4.4 % (24.0-44.0); MEAN CORPUSCULAR HEMOGLOBIN 32.5 pg (28.0-32.0); MEAN CORPUSCULAR HGB CONC 33.9 g/dl (32.0-36.0); MEAN CORPUSCULAR VOLUME 95.8 fl (83.0-99.0); MEAN PLATELET VOLUME 10.4 fl (9.4-12.4); MONOCYTES ABSOLUTE AUTO 1.1 K/mm3 (0.0-0.8); MONOCYTES PERCENT AUTO 6.6 % (0.0-8.0); NEUTROPHILS ABSOLUTE AUTO 14.8 K/mm3 (1.8-7.7); NEUTROPHILS PERCENT AUTO 87.8 % (41.0-71.0); PLATELET COUNT,PLT 121 K/mm3 (150-400); RED BLOOD CELL COUNT 4.06 M/mm3 (4.52-5.90); WHITE BLOOD CELL COUNT,WBC 16.89 K/mm3 (3.9-11.3)
[2023-12-07 17:18] LABS: INR 1.15; PROTHROMBIN TIME 12.1 SECONDS (9.7-12.0)
[2023-12-07 17:21] LABS: A/G RATIO 0.8 (1-2); ALBUMIN 3.1 g/dl (3.4-5.0); ANION GAP 12.7 (5-15); BUN/CREATININE RATIO 15.6 (14-18); CALCIUM 8.9 mg/dL (8.5-10.1); CREATININE 2.5 mg/dL (0.7-1.3); D-DIMER QUANTITATIVE 0.67 mg/L (0.19-0.50); EST CRCL DRUG DOSING (CG) 23.52 mL/min; MAGNESIUM 1.9 mg/dL (1.8-2.4); POTASSIUM,K 3.7 mEq/L (3.5-5.1); PROTEIN TOTAL,TP 6.9 g/dl (6.4-8.2)
[2023-12-07 17:34] LABS: LACTIC ACID 2.2 mmol/L (0.4-2.0)
[2023-12-07] MEDS: Sodium Chloride 0.9% 1,000 ML IV STA (17:54)
[2023-12-07] MEDS: Piperacillin/Tazobactam 4.5 GM in Sodium Chloride 0.9% 100 ML IV ONE (17:54)
[2023-12-07] MEDS ORDERED: Morphine 2 MG/ML SYRINGE IVPUSH PRN (19:21)
[2023-12-07] MEDS ORDERED: oxyCODONE 5 MG Tab PO PRN (19:21)
[2023-12-07] MEDS ORDERED: Ondansetron 4 MG/2 ML SDV IV PRN (19:21)
[2023-12-07] MEDS ORDERED: Sennosides/Docusate Sodium 50-8.6 MG Tab PO PRN (19:21)
[2023-12-07] MEDS ORDERED: Melatonin 3 MG Tab PO PRN (19:21)
[2023-12-07] MEDS ORDERED: 50% Dextrose in Water 50 ML Syringe IVPUSH PRN (19:28)
[2023-12-07] MEDS ORDERED: Albuterol/Ipratropium 3.0-0.5 MG/3 ML Neb Soln NEB PRN (19:29)
[2023-12-07] MEDS: Apixaban 2.5 MG Tab PO SCH (21:32)
[2023-12-07] MEDS: Insulin Lispro 100 Unit/ML 3 ML KwikPen SUBCUT SCH (21:32)
[2023-12-07] MEDS: Piperacillin/Tazobactam 4.5 GM in Sodium Chloride 0.9% 100 ML IV SCH (21:32)
[2023-12-07] MEDS: Acetaminophen 325 MG Tab PO PRN (21:44)
[2023-12-08 05:46] LABS: BASOPHILS PERCENT AUTO 0.2 % (0.0-1.0); EOSINOPHILS PERCENT AUTO 0.2 % (0.0-6.0); HEMATOCRIT 33.6 % (42.0-52.0); HEMOGLOBIN 11.6 gm/dl (14.0-18.0); IMMATURE GRAN ABSOLUTE AUTO 0.11 K/mm3 (0.00-0.05); IMMATURE GRAN PERCENT AUTO 0.9 % (0.0-0.4); LYMPHOCYTES ABSOLUTE AUTO 0.8 K/mm3 (1.0-4.8); LYMPHOCYTES PERCENT AUTO 6.2 % (24.0-44.0); MEAN CORPUSCULAR HEMOGLOBIN 32.3 pg (28.0-32.0); MEAN CORPUSCULAR HGB CONC 34.5 g/dl (32.0-36.0); MEAN CORPUSCULAR VOLUME 93.6 fl (83.0-99.0); MEAN PLATELET VOLUME 10.8 fl (9.4-12.4); MONOCYTES ABSOLUTE AUTO 0.7 K/mm3 (0.0-0.8); MONOCYTES PERCENT AUTO 5.4 % (0.0-8.0); NEUTROPHILS ABSOLUTE AUTO 10.9 K/mm3 (1.8-7.7); NEUTROPHILS PERCENT AUTO 87.1 % (41.0-71.0); PLATELET COUNT,PLT 105 K/mm3 (150-400); RED BLOOD CELL COUNT 3.59 M/mm3 (4.52-5.90); WHITE BLOOD CELL COUNT,WBC 12.51 K/mm3 (3.9-11.3)
[2023-12-08 06:25] LABS: A/G RATIO 0.7 (1-2); ALBUMIN 2.5 g/dl (3.4-5.0); ANION GAP 13.8 (5-15); BILIRUBIN TOTAL 1.2 mg/dL (0.2-1.0); CALCIUM 8.3 mg/dL (8.5-10.1); CREATININE 2.4 mg/dL (0.7-1.3); EST CRCL DRUG DOSING (CG) 24.5 mL/min; PHOSPHORUS 3.7 mg/dL (2.6-4.7); POTASSIUM,K 3.8 mEq/L (3.5-5.1); TSH 0.445 uIU/mL (0.358-3.74)
[2023-12-08 07:08] LABS: HEMOGLOBIN A1C 6.1 %
[2023-12-08] MEDS: Gabapentin 300 MG Cap PO SCH (08:31)
[2023-12-08] MEDS: Acyclovir 200 MG Cap PO SCH (08:31)
[2023-12-08] MEDS: Rosuvastatin 10 MG Tab PO SCH (08:31)
[2023-12-08] MEDS: Tamsulosin 0.4 MG Cap.ER PO SCH (08:31)
[2023-12-08] MEDS: Fluconazole 100 MG Tab PO SCH (08:31)
[2023-12-08] MEDS: Levothyroxine 125 MCG Tab PO SCH (08:34)
[2023-12-08] MEDS ORDERED: Albuterol 6.7 GM Inhaler INH PRN (11:32)
[2023-12-08] MEDS: Calcitriol 0.25 MCG Cap PO SCH (13:17)
[2023-12-08] MEDS ORDERED: cefTRIAXone 2 GM in Sodium Chloride 0.9% 100 ML IV SCH (19:30)
[2023-12-08] MEDS: Formoterol/Mometasone 200-5 MCG 8.8 GM Inhaler INH SCH (21:31)
[2023-12-09 04:38] LABS: BASOPHILS PERCENT AUTO 0.2 % (0.0-1.0); EOSINOPHILS ABSOLUTE AUTO 0.1 K/mm3 (0.0-0.4); EOSINOPHILS PERCENT AUTO 1.3 % (0.0-6.0); HEMATOCRIT 33.9 % (42.0-52.0); HEMOGLOBIN 11.5 gm/dl (14.0-18.0); IMMATURE GRAN ABSOLUTE AUTO 0.06 K/mm3 (0.00-0.05); IMMATURE GRAN PERCENT AUTO 0.6 % (0.0-0.4); LYMPHOCYTES ABSOLUTE AUTO 0.7 K/mm3 (1.0-4.8); LYMPHOCYTES PERCENT AUTO 7.1 % (24.0-44.0); MEAN CORPUSCULAR HEMOGLOBIN 32.1 pg (28.0-32.0); MEAN CORPUSCULAR HGB CONC 33.9 g/dl (32.0-36.0); MEAN CORPUSCULAR VOLUME 94.7 fl (83.0-99.0); MEAN PLATELET VOLUME 10.7 fl (9.4-12.4); MONOCYTES ABSOLUTE AUTO 0.7 K/mm3 (0.0-0.8); MONOCYTES PERCENT AUTO 6.5 % (0.0-8.0); NEUTROPHILS ABSOLUTE AUTO 8.8 K/mm3 (1.8-7.7); NEUTROPHILS PERCENT AUTO 84.3 % (41.0-71.0); PLATELET COUNT,PLT 115 K/mm3 (150-400); RED BLOOD CELL COUNT 3.58 M/mm3 (4.52-5.90); WHITE BLOOD CELL COUNT,WBC 10.44 K/mm3 (3.9-11.3)
[2023-12-09 05:13] LABS: A/G RATIO 0.7 (1-2); ALBUMIN 2.5 g/dl (3.4-5.0); ANION GAP 10.9 (5-15); BILIRUBIN TOTAL 0.8 mg/dL (0.2-1.0); BUN/CREATININE RATIO 13.8 (14-18); CALCIUM 8.5 mg/dL (8.5-10.1); CREATININE 2.4 mg/dL (0.7-1.3); EST CRCL DRUG DOSING (CG) 24.5 mL/min; POTASSIUM,K 3.9 mEq/L (3.5-5.1); PROTEIN TOTAL,TP 6.2 g/dl (6.4-8.2)
[2023-12-09] MEDS: Bumetanide 1 MG Tab PO SCH (09:00)
[2023-12-09] MEDS: Midodrine 5 MG Tab PO SCH (09:01)
[2023-12-09] MEDS: Allopurinol 100 MG Tab PO SCH (09:02)
[2023-12-09] MEDS: Cholecalciferol (Vitamin D3) 25 MCG Tab PO SCH (09:03)
[2023-12-09] MEDS: DULoxetine 30 MG Cap PO SCH (10:08)
[2023-12-09] MEDS: guaiFENesin/Dextromethorphan 100-10 MG/5 ML Soln 5 ML Cup PO ONE (10:08)
[2023-12-09] MEDS: Albuterol/Ipratropium 3.0-0.5 MG/3 ML Neb Soln NEB SCH (10:17)
[2023-12-09] MEDS: cefTRIAXone 2 GM in Sodium Chloride 0.9% 100 ML IV SCH (12:09)
[2023-12-09] MEDS: Azithromycin 250 MG Tab PO SCH (12:59)
[2023-12-09] MEDS: Sodium Bicarbonate 650 MG Tab PO SCH (16:28)
[2023-12-09] MEDS: guaiFENesin/Dextromethorphan 100-10 MG/5 ML Soln 5 ML Cup PO SCH (16:28)
[2023-12-10 04:42] LABS: BASOPHILS PERCENT AUTO 0.3 % (0.0-1.0); EOSINOPHILS ABSOLUTE AUTO 0.2 K/mm3 (0.0-0.4); EOSINOPHILS PERCENT AUTO 2.4 % (0.0-6.0); HEMATOCRIT 34.6 % (42.0-52.0); HEMOGLOBIN 11.7 gm/dl (14.0-18.0); IMMATURE GRAN ABSOLUTE AUTO 0.03 K/mm3 (0.00-0.05); IMMATURE GRAN PERCENT AUTO 0.4 % (0.0-0.4); LYMPHOCYTES ABSOLUTE AUTO 0.6 K/mm3 (1.0-4.8); LYMPHOCYTES PERCENT AUTO 8.4 % (24.0-44.0); MEAN CORPUSCULAR HEMOGLOBIN 32.1 pg (28.0-32.0); MEAN CORPUSCULAR HGB CONC 33.8 g/dl (32.0-36.0); MEAN CORPUSCULAR VOLUME 94.8 fl (83.0-99.0); MEAN PLATELET VOLUME 10.5 fl (9.4-12.4); MONOCYTES ABSOLUTE AUTO 0.6 K/mm3 (0.0-0.8); MONOCYTES PERCENT AUTO 8.3 % (0.0-8.0); NEUTROPHILS ABSOLUTE AUTO 6.1 K/mm3 (1.8-7.7); NEUTROPHILS PERCENT AUTO 80.2 % (41.0-71.0); PLATELET COUNT,PLT 108 K/mm3 (150-400); RED BLOOD CELL COUNT 3.65 M/mm3 (4.52-5.90); WHITE BLOOD CELL COUNT,WBC 7.59 K/mm3 (3.9-11.3)
[2023-12-10 05:12] LABS: A/G RATIO 0.6 (1-2); ALBUMIN 2.4 g/dl (3.4-5.0); ANION GAP 12.7 (5-15); BILIRUBIN TOTAL 0.5 mg/dL (0.2-1.0); BUN/CREATININE RATIO 13.5 (14-18); CALCIUM 8.3 mg/dL (8.5-10.1); CREATININE 2.3 mg/dL (0.7-1.3); EST CRCL DRUG DOSING (CG) 25.57 mL/min; MAGNESIUM 1.9 mg/dL (1.8-2.4); POTASSIUM,K 3.7 mEq/L (3.5-5.1); PROTEIN TOTAL,TP 6.3 g/dl (6.4-8.2)
[2023-12-11 06:07] LABS: BASOPHILS PERCENT AUTO 0.2 % (0.0-1.0); EOSINOPHILS ABSOLUTE AUTO 0.2 K/mm3 (0.0-0.4); EOSINOPHILS PERCENT AUTO 3.9 % (0.0-6.0); HEMATOCRIT 34.3 % (42.0-52.0); HEMOGLOBIN 11.8 gm/dl (14.0-18.0); IMMATURE GRAN ABSOLUTE AUTO 0.03 K/mm3 (0.00-0.05); IMMATURE GRAN PERCENT AUTO 0.5 % (0.0-0.4); LYMPHOCYTES ABSOLUTE AUTO 0.6 K/mm3 (1.0-4.8); LYMPHOCYTES PERCENT AUTO 10.9 % (24.0-44.0); MEAN CORPUSCULAR HEMOGLOBIN 32.3 pg (28.0-32.0); MEAN CORPUSCULAR HGB CONC 34.4 g/dl (32.0-36.0); MEAN PLATELET VOLUME 10.2 fl (9.4-12.4); MONOCYTES ABSOLUTE AUTO 0.6 K/mm3 (0.0-0.8); MONOCYTES PERCENT AUTO 9.9 % (0.0-8.0); NEUTROPHILS ABSOLUTE AUTO 4.2 K/mm3 (1.8-7.7); NEUTROPHILS PERCENT AUTO 74.6 % (41.0-71.0); PLATELET COUNT,PLT 136 K/mm3 (150-400); RED BLOOD CELL COUNT 3.65 M/mm3 (4.52-5.90); WHITE BLOOD CELL COUNT,WBC 5.67 K/mm3 (3.9-11.3)
[2023-12-11 06:40] LABS: ANION GAP 13.1 (5-15); BUN/CREATININE RATIO 17.7 (14-18); CALCIUM 8.6 mg/dL (8.5-10.1); CREATININE 2.2 mg/dL (0.7-1.3); EST CRCL DRUG DOSING (CG) 26.73 mL/min; MAGNESIUM 1.9 mg/dL (1.8-2.4); POTASSIUM,K 4.1 mEq/L (3.5-5.1)
[2023-12-12 04:27] LABS: BASOPHILS PERCENT AUTO 0.4 % (0.0-1.0); EOSINOPHILS ABSOLUTE AUTO 0.2 K/mm3 (0.0-0.4); EOSINOPHILS PERCENT AUTO 4.5 % (0.0-6.0); HEMATOCRIT 36.3 % (42.0-52.0); IMMATURE GRAN ABSOLUTE AUTO 0.02 K/mm3 (0.00-0.05); IMMATURE GRAN PERCENT AUTO 0.4 % (0.0-0.4); LYMPHOCYTES ABSOLUTE AUTO 0.6 K/mm3 (1.0-4.8); LYMPHOCYTES PERCENT AUTO 11.9 % (24.0-44.0); MEAN CORPUSCULAR HEMOGLOBIN 31.5 pg (28.0-32.0); MEAN CORPUSCULAR HGB CONC 33.1 g/dl (32.0-36.0); MEAN CORPUSCULAR VOLUME 95.3 fl (83.0-99.0); MEAN PLATELET VOLUME 10.1 fl (9.4-12.4); MONOCYTES ABSOLUTE AUTO 0.7 K/mm3 (0.0-0.8); MONOCYTES PERCENT AUTO 12.3 % (0.0-8.0); NEUTROPHILS ABSOLUTE AUTO 3.7 K/mm3 (1.8-7.7); NEUTROPHILS PERCENT AUTO 70.5 % (41.0-71.0); PLATELET COUNT,PLT 153 K/mm3 (150-400); RED BLOOD CELL COUNT 3.81 M/mm3 (4.52-5.90); WHITE BLOOD CELL COUNT,WBC 5.29 K/mm3 (3.9-11.3)
[2023-12-12 04:47] LABS: ANION GAP 14.3 (5-15); BUN/CREATININE RATIO 18.1 (14-18); CALCIUM 8.8 mg/dL (8.5-10.1); CREATININE 2.1 mg/dL (0.7-1.3); MAGNESIUM 1.8 mg/dL (1.8-2.4); POTASSIUM,K 4.3 mEq/L (3.5-5.1)
== END 2023-12-12 13:33 | disposition home or self-care (01) | DRG 871 ==
LOC: JD.ED 15:21 → JD.MS 19:21
PROVIDERS: ADMIT Student in an Organized Health Care Education/Training Program; ATTEND Student in an Organized Health Care Education/Training Program
DX: A40.3 Sepsis due to Streptococcus pneumoniae (principal); A41.9 Sepsis, unspecified organism; J18.9 Pneumonia, unspecified organism; J96.01 Acute respiratory failure with hypoxia; I12.9 Hypertensive chronic kidney disease with stage 1 through stage 4 chronic kidney disease, or unspecified chronic kidney disease; N18.9 Chronic kidney disease, unspecified; R65.20 Severe sepsis without septic shock; C90.00 Multiple myeloma not having achieved remission; J44.0 Chronic obstructive pulmonary disease with (acute) lower respiratory infection; Z79.899 Other long term (current) drug therapy; I13.0 Hypertensive heart and chronic kidney disease with heart failure and stage 1 through stage 4 chronic kidney disease, or unspecified chronic kidney disease; E87.20 Acidosis, unspecified; N18.4 Chronic kidney disease, stage 4 (severe); Z68.33 Body mass index [BMI] 33.0-33.9, adult; K86.2 Cyst of pancreas; K57.32 Diverticulitis of large intestine without perforation or abscess without bleeding; H91.90 Unspecified hearing loss, unspecified ear; H54.7 Unspecified visual loss; E78.00 Pure hypercholesterolemia, unspecified; E11.22 Type 2 diabetes mellitus with diabetic chronic kidney disease; I50.9 Heart failure, unspecified; E66.9 Obesity, unspecified; F41.9 Anxiety disorder, unspecified; F32.A Depression, unspecified; E03.9 Hypothyroidism, unspecified; M19.90 Unspecified osteoarthritis, unspecified site; Z88.1 Allergy status to other antibiotic agents; Z88.2 Allergy status to sulfonamides; Z87.891 Personal history of nicotine dependence; Z79.01 Long term (current) use of anticoagulants; Z79.890 Hormone replacement therapy; Z79.52 Long term (current) use of systemic steroids; Z86.73 Personal history of transient ischemic attack (TIA), and cerebral infarction without residual deficits; Z68.32 Body mass index [BMI] 32.0-32.9, adult; Z96.659 Presence of unspecified artificial knee joint; Z86.16 Personal history of COVID-19; Z98.49 Cataract extraction status, unspecified eye; Z90.49 Acquired absence of other specified parts of digestive tract; Z93.3 Colostomy status
CPT/HCPCS: 0241U; 36415; 71045; 71250; 80048; 80053; 82947; 83036; 83605; 83735; 84100; 84443; 84484; 85025; 85379; 85610; 86140; 87040; 87077; 87154; 87186; 93005; 94640; 94667; 94668; 94760; 94761; 97110; 97116; 97161; 93010; 96361; 96365; 99285; 99285-25; A9270-GY; J0696; J1815; J2543; J3490; J7030; J7620-GY

== ENCOUNTER 2024-07-12 10:48 | Emergency (ER) | payer MEDICARE, BC ==
[2024-07-12 12:07] LABS: BASOPHILS PERCENT AUTO 0.2 % (0.0-1.0); EOSINOPHILS ABSOLUTE AUTO 0.2 K/mm3 (0.0-0.4); EOSINOPHILS PERCENT AUTO 3.4 % (0.0-6.0); HEMATOCRIT 34.2 % (42.0-52.0); HEMOGLOBIN 11.3 gm/dl (14.0-18.0); IMMATURE GRAN ABSOLUTE AUTO 0.01 K/mm3 (0.00-0.05); IMMATURE GRAN PERCENT AUTO 0.2 % (0.0-0.4); LYMPHOCYTES ABSOLUTE AUTO 0.9 K/mm3 (1.0-4.8); LYMPHOCYTES PERCENT AUTO 16.9 % (24.0-44.0); MEAN CORPUSCULAR HEMOGLOBIN 31.9 pg (28.0-32.0); MEAN CORPUSCULAR VOLUME 96.6 fl (83.0-99.0); MEAN PLATELET VOLUME 9.4 fl (9.4-12.4); MONOCYTES ABSOLUTE AUTO 0.6 K/mm3 (0.0-0.8); MONOCYTES PERCENT AUTO 12.1 % (0.0-8.0); NEUTROPHILS ABSOLUTE AUTO 3.4 K/mm3 (1.8-7.7); NEUTROPHILS PERCENT AUTO 67.2 % (41.0-71.0); PLATELET COUNT,PLT 111 K/mm3 (150-400); RED BLOOD CELL COUNT 3.54 M/mm3 (4.52-5.90); WHITE BLOOD CELL COUNT,WBC 5.03 K/mm3 (3.9-11.3)
[2024-07-12 12:26] LABS: APPEARANCE,URINE CLEAR (Clear); BILIRUBIN,URINE NEGATIVE (Negative); COLOR,URINE YELLOW (Yellow); GLUCOSE,URINE NEGATIVE (Negative); KETONES,URINE NEGATIVE (Negative); LEUKOCYTE ESTERASE,URINE NEGATIVE (Negative); NITRITE,URINE NEGATIVE (Negative); OCCULT BLOOD,URINE NEGATIVE (Negative); PROTEIN,URINE 2+ (Negative); UROBILINOGEN,URINE 0.2 (0.2-1.0)
[2024-07-12 12:41] LABS: A/G RATIO 0.8 (1-2); ANION GAP 13.4 (5-15); BILIRUBIN TOTAL 0.6 mg/dL (0.2-1.0); C-REACTIVE PROTEIN 6.7 mg/dL (<0.30); CALCIUM 8.9 mg/dL (8.5-10.1); CREATININE 2.5 mg/dL (0.7-1.3); EST CRCL DRUG DOSING (CG) 24.26 mL/min; POTASSIUM,K 4.4 mEq/L (3.5-5.1)
[2024-07-12 13:00] LABS: BACTERIA,URINE RARE /hpf (FEW); EPITHELIAL CELLS,URINE 0-5 /hpf (0-5); MUCUS,URINE NOT SEEN /hpf (FEW); RBC,URINE 0-5 /hpf (0-5); WBC,URINE 0-5 /hpf (0-5)
== END 2024-07-12 13:40 | disposition home or self-care (01) ==
LOC: JD.ED 10:48
DX: C90.00 Multiple myeloma not having achieved remission (principal); R41.0 Disorientation, unspecified; I12.9 Hypertensive chronic kidney disease with stage 1 through stage 4 chronic kidney disease, or unspecified chronic kidney disease; N18.4 Chronic kidney disease, stage 4 (severe); E78.00 Pure hypercholesterolemia, unspecified; J44.9 Chronic obstructive pulmonary disease, unspecified; E11.22 Type 2 diabetes mellitus with diabetic chronic kidney disease; E03.9 Hypothyroidism, unspecified; E66.9 Obesity, unspecified; Z86.16 Personal history of COVID-19; Z79.899 Other long term (current) drug therapy; Z79.01 Long term (current) use of anticoagulants; Z88.1 Allergy status to other antibiotic agents; Z88.2 Allergy status to sulfonamides; Z68.33 Body mass index [BMI] 33.0-33.9, adult
CPT/HCPCS: 36415; 70450; 70450-26; 71046; 71046-26; 80053; 81001; 85025; 86140; 87426-QW; 99284; 99285

== ENCOUNTER 2024-10-08 18:52 | Emergency (ER) | payer MEDICARE, BC ==
[2024-10-08 19:58] LABS: APPEARANCE,URINE CLEAR (Clear); GLUCOSE,URINE NEGATIVE (Negative); OCCULT BLOOD,URINE NEGATIVE (Negative)
[2024-10-08 20:12] LABS: EPITHELIAL CELLS,URINE 0-5 /hpf (0-5)
== END 2024-10-08 20:29 | disposition home or self-care (01) ==
LOC: JD.ED 18:52
DX: R32 Unspecified urinary incontinence (principal); I10 Essential (primary) hypertension; E11.9 Type 2 diabetes mellitus without complications; E03.9 Hypothyroidism, unspecified; E78.00 Pure hypercholesterolemia, unspecified; Z86.16 Personal history of COVID-19; Z88.1 Allergy status to other antibiotic agents; Z88.2 Allergy status to sulfonamides; Z79.890 Hormone replacement therapy; Z79.899 Other long term (current) drug therapy; Z79.01 Long term (current) use of anticoagulants
CPT/HCPCS: 81001; 99283